=== PATIENT | male | born 1955 | race Hispanic/Latino ===

== ENCOUNTER 2017-04-06 14:06 | Emergency (ER) | payer MEDICARE ==
[2017-04-06 14:09] VITALS: BMI 31.4
[2017-04-06 14:14] VITALS: TEMP 98.2
--- NOTE | 2017-04-06 14:33 | ED PDOC ---
Arrival/HPI - General Chief Complaint: Psychiatric Evaluation Time Seen by Provider: 04/06/17 14:28 Historian: Patient - History of Present Illness Narrative History of Present Illness (Text): 04/06/17 14:29 Jj Renteria Jr. is a 61 year old male, whose past medical history includes diabetes, hypertension, schizoaffective disorder, and bipolar depression, who was sent in to emergency department by Dr. Salter for psychiatric medication adjustment. Patient denies any SI/HI or any other complaint at this time. Psychiatrist: Dr. Salter Past Medical History - Provider Review Nursing Documentation Reviewed: Yes - Infectious Disease Hx of Infectious Diseases: None - Tetanus Immunization Tetanus Immunization: Unknown - Cardiac Hx Cardiac Disorders: Yes Hx Hypertension: Yes - Pulmonary Hx Respiratory Disorders: No - Neurological Hx Neurological Disorder: No - HEENT Hx HEENT Disorder: No - Renal Hx Renal Disorder: No - Endocrine/Metabolic Hx Diabetes Mellitus Type 1: Yes - Hematological/Oncological Hx Cancer: No - Integumentary Hx Dermatological Disorder: No - Musculoskeletal/Rheumatological Hx Musculoskeletal Disorders: No Hx Unsteady Gait: No - Gastrointestinal Hx Gastrointestinal Disorders: No - Genitourinary/Gynecological Hx Sexually Transmitted Diseases: No - Psychiatric Hx Anxiety: Yes Hx Bipolar Disorder: Yes Hx Depression: Yes Hx Schizophrenia: Yes Hx Substance Use: Yes (Marijuana) - Past Surgical History Past Surgical History: No Previous - Surgical History Hx Appendectomy: Yes Hx Tonsillectomy: Yes - Anesthesia Hx Anesthesia: Yes Hx Anesthesia Reactions: No Hx Malignant Hyperthermia: No - Suicidal Assessment Feels Threatened In Home Enviroment: No Family/Social History - Physician Review Nursing Documentation Reviewed: Yes Family/Social History: No Known Family HX Smoking Status: Current Some Days Smoker Hx Alcohol Use: Yes Frequency of alcohol use: Socially Hx Substance Use: Yes (Marijuana) Hx Substance Use Treatment: No Allergies/Home Meds Allergies/Adverse Reactions: Allergies Penicillins Allergy (Verified 04/06/17 14:12) SHORTNESS OF BREATH Home Medications: Home Meds Medication Instructions Recorded Confirmed Atenolol [Tenormin] 50 mg PO DAILY 04/06/17 04/06/17 Clozapine [Fazaclo] 50 mg PO QID 04/06/17 04/06/17 Fludrocortisone [Florinef] 0.1 mg PO DAILY 04/06/17 04/06/17 Ranitidine HCl [Zantac 75] 1 tab PO PRN PRN 04/06/17 04/06/17 Tadalafil [Cialis] 1 tab PO DAILY 04/06/17 04/06/17 amLODIPine [Norvasc] 2.5 mg PO DAILY 04/06/17 04/06/17 cloZAPine [Clozaril] 100 mg PO BID 04/06/17 04/06/17 clonazePAM [Klonopin] 1 mg PO HS 04/06/17 04/06/17 Physical Exam - Physical Exam Narrative Physical Exam (Text): - Review of Systems Constitutional: Normal. absent: Fatigue, Weight Change, Fevers Eyes: Normal ENT: Normal Respiratory: Normal absent: SOB, Cough, Sputum Cardiovascular: Normal absent: Chest pain, Palpitations, Syncope Gastrointestinal: Normal absent: Abdominal pain, Diarrhea, Nausea, Vomiting Genitourinary: Normal. absent: Dysuria, Frequency, Hematuria Musculoskeletal: Normal. absent: Arthralgias, Back Pain, Neck Pain Skin: Normal Neurological: Normal absent: Focal Weakness Endocrine: Normal Hemo/Lymphatic: Normal Psychiatric: No SI/HI - Physical exam Patient appears age appropriate, speaking full sentences without difficulty. - Systems Exam Head: Present: Atraumatic, Normocephalic Pupils: Present: PERRL Extraocular Muscles: Present: EOMI Conjunctiva: Present: Normal Mouth: Present: Moist Mucous Membranes Neck: Present: Normal Range of Motion. No: MIDLINE TENDERNESS, Paraspinal Tenderness Respiratory/Chest: Present: Clear to Auscultation, Good Air Exchange. No: Respiratory Distress, Accessory Muscle Use, Tachypneic Cardiovascular: Present: Regular Rate and Rhythm, Normal S1, S2, Peripheral Pulses Present. No: Murmurs Abdomen: Present: Normal Bowel Sounds, No: Tenderness, Peritoneal Signs, Rebound, Guarding, Distention Back: Present: Normal Inspection. No: Midline Tenderness, Paraspinal Tenderness Upper Extremity: Present: Normal Inspection. No: Cyanosis, Edema Lower Extremity: Present: Normal Inspection. No: Edema Neurological: Present: GCS=15, Speech Normal, cranial nerves II through XII fully intact with no cerebellar abnormality, neuro-sensory fully intact. No focal neurological deficits. Skin: Present: Warm, Dry, Normal Color. No: Rashes Lymphatic: Present: OX3, NI, NC Psychiatric: Present: Alert, Oriented x 3, Normal Insight, Normal Concentration Vital Signs Reviewed: Yes Vital Signs Temp Pulse Resp BP Pulse Ox 04/06/17 18:00 80 20 146/97 H 99 04/06/17 14:13 98.2 F 108 H 18 137/86 97 Temperature: Afebrile Blood Pressure: Normal Pulse: Tachycardic Respiratory Rate: Normal Appearance: Positive for: Well-Appearing, Non-Toxic, Comfortable Pain Distress: None Mental Status: Positive for: Alert and Oriented X 3 Finger Stick Blood Glucose: 245 Medical Decision Making ED Course and Treatment: 04/06/17 14:29 Impression: 61 year old male sent in by Dr. Salter for psychiatric meds adjustment Denies SI/HI, denies other complaints. Plan: -- Chest X-ray -- Urinalysis -- Labs -- Reassess and disposition Prior Visits: Notes and results from previous visits were reviewed. Patient last seen in ED on 11/18/16 for right eye swelling that day. Patient was discharged home. Progress Notes: 04/06/17 18:22 seen by PES, states pt cleared for dc home with outpatient f/u pt in no distress, asked to be dc'd home denies SI/HI, states he feels comfortable being dc'd home Pt states he understands to return to the ER right away for new or worsening symptoms or for inability to f/u with PMD or specialist as instructed. Patient states that he fully agrees with and understands discharge instructions. States that he agrees with the plan and disposition. Verbalized and repeated discharge instructions and plan. I have given the patient opportunity to ask any additional questions. - Lab Interpretations Lab Results: 04/06/17 14:28 04/06/17 14:00 Lab Results 04/06/17 17:30: Urine Color Yellow, Urine Appearance Clear, Urine pH 6.0, Ur Specific [place] 1.020, Urine Protein 30 H, Urine Glucose (UA) >=1000, Urine Ketones Negative, Urine Blood Negative, Urine Nitrate Negative, Urine Bilirubin Negative, Urine Urobilinogen 0.2, Ur Leukocyte Esterase Negative, Urine RBC Pending, Urine WBC Pending 04/06/17 14:28: WBC 9.0 D, RBC 5.95, Hgb 17.5, Hct 49.8, MCV 83.7, MCH 29.4, MCHC 35.1, RDW 13.9, Plt Count 179, MPV 10.9, Gran % 69.5 H, Lymph % (Auto) 19.8 L, [place] % (Auto) 8.4 H, Eos % (Auto) 2.1, Baso % (Auto) 0.2, Gran # 6.28, Lymph # 1.8, [place] # 0.8 H, Eos # 0.2, Baso # 0.02 04/06/17 14:00: Alcohol, Quantitative < 10 04/06/17 14:00: Salicylates < 1 L, Acetaminophen < 10.0 L 04/06/17 14:00: Sodium 138, Potassium 4.3, Chloride 106, Carbon Dioxide 23, Anion Gap 13, BUN 17, Creatinine 1.1, Est GFR ( Amer) > 60, Est GFR (Non- Af Amer) > 60, Random Glucose 268 H, Calcium 9.4, Total Bilirubin 1.0, AST 22, ALT 34, Alkaline Phosphatase 51, Total Protein 6.8, Albumin 4.0, Globulin 2.8, Albumin/Globulin Ratio 1.4 I have reviewed the lab results: Yes - RAD Interpretation Radiology Orders: 04/06/17 14:29 CHEST PORTABLE [RAD] Stat - Scribe Statement The provider has reviewed the documentation as recorded by the Rosamaria Acosta Provider Scribe Attestation: All medical record entries made by the Scribe were at my direction and personally dictated by me. I have reviewed the chart and agree that the record accurately reflects my personal performance of the history, physical exam, medical decision making, and the department course for this patient. I have also personally directed, reviewed, and agree with the discharge instructions and disposition. Disposition/Present on Arrival - Present on Arrival Any Indicators Present on Arrival: No History of DVT/PE: No History of Uncontrolled Diabetes: No Urinary Catheter: No History of Decub. Ulcer: No History Surgical Site Infection Following: None - Disposition Have Diagnosis and Disposition been Completed?: Yes Diagnosis: Encounter for medication adjustment Disposition: HOME/ ROUTINE Disposition Time: 18:25 Patient Plan: Discharge Patient Problems: Current Active Problems Problem Status Onset Encounter for medication adjustment Acute Condition: GOOD Discharge Instructions (ExitCare): Medical Clearance for Psychiatric Care (ED) Additional Instructions: PLEASE RETURN TO THE EMERGENCY DEPARTMENT FOR NEW OR WORSENING SYMPTOMS. RETURN RIGHT AWAY IF YOU CANNOT FOLLOW UP WITH YOUR PRIMARY CARE DOCTOR, CLINIC, OR SPECIALIST IN 1-2 DAYS. Referrals: Poncho Irwin MD [Primary Care Provider] - Follow up with primary Simone Salter MD [Staff Provider] - Follow up with primary Eveline Jacobson MD [Staff Provider] - Follow up with primary
--- NOTE | 2017-04-06 15:03 | RAD ---
HISTORY: med clearance COMPARISON: Chest x-ray performed 05/01/16 TECHNIQUE: Chest, one view. FINDINGS: Examination limited by habitus. LUNGS: No focal consolidation. Please note that chest x-ray has limited sensitivity for the detection of pulmonary masses. PLEURA: No significant pleural effusion identified. No definite pneumothorax . CARDIOVASCULAR: The cardiomediastinal silhouette appears within normal limits of size. OSSEOUS STRUCTURES: Degenerative changes of the spine. VISUALIZED UPPER ABDOMEN: Unremarkable. OTHER FINDINGS: None. IMPRESSION: No focal consolidation, significant pleural effusion, or definite pneumothorax identified.
[2017-04-06 15:06] LABS: ADD MANUAL DIFF? NO; BASO # 0.02 K/mm3 (0.0-2.0); BASO % 0.2 % (0.0-3.0); EOS # 0.2 (0.0-0.7); EOS % 2.1 % (1.5-5.0); GRAN # 6.28 (1.4-6.5); GRAN % 69.5 % (50.0-68.0); HEMATOCRIT 49.8 % (42.0-52.0); LYMPH # 1.8 (1.2-3.4); LYMPH % 19.8 % (22.0-35.0); MEAN CELL VOLUME 83.7 fL (80.0-105.0); MEAN CORPUSCULAR HEMOGLOBIN 29.4 pg (25.0-35.0); MEAN CORPUSCULAR HGB CONC 35.1 g/dl (31.0-37.0); MEAN PLATELET VOLUME 10.9 fl (7.0-11.0); MONO # 0.8 (0.1-0.6); MONO % 8.4 % (1.0-6.0); PLATELET COUNT 179 10^3/uL (120.0-450.0); RED CELL DISTRIBUTION WIDTH 13.9 % (11.5-14.5)
[2017-04-06 15:18] LABS: ALB/GLOB RATIO 1.4 (1.1-1.8); ALKALINE PHOSPHATASE 51 U/L (38-133); ALT/SGPT 34 U/L (7-56); AST/SGOT 22 U/L (15-59); BLOOD UREA NITROGEN 17 mg/dL (7-21); CALCIUM 9.4 mg/dL (8.4-10.5); CARBON DIOXIDE 23 mmol/L (21-33); CHLORIDE 106 mmol/L (98-107); GFR AFRICAN-AMERICAN > 60; GLUCOSE,RANDOM 268 mg/dL (70-110); POTASSIUM 4.3 mmol/L (3.6-5.0); SODIUM 138 mmol/L (132-148); TOTAL PROTEIN 6.8 g/dL (5.8-8.3)
[2017-04-06 18:01] VITALS: BP 146/97; PULSE 80; RESP 20; O2SAT 99
[2017-04-06 18:05] LABS: URINE APPEARANCE CLEAR (CLEAR); URINE BILIRUBIN NEGATIVE (NEGATIVE); URINE BLOOD NEGATIVE (NEGATIVE); URINE COLOR YELLOW (YELLOW); URINE GLUCOSE (UA) >=1000 mg/dL (NEGATIVE); URINE KETONE NEGATIVE (NEGATIVE); URINE LEUKOCYTE ESTERASE NEGATIVE Leu/uL (NEGATIVE); URINE PROTEIN 30 mg/dL (<30 mg/dL); URINE UROBILINOGEN 0.2 E.U./dL (<1 E.U./dL)
[2017-04-06 19:03] LABS: URINE BACTERIA TRACE (NEG); URINE RBC 0 - 2 /hpf (0-2); URINE WBC 0 - 2 /hpf (0-6)
== END 2017-04-06 18:49 | disposition home or self-care (01) ==
LOC: ED 14:06
DX: Z00.8 Encounter for other general examination (principal); I10 Essential (primary) hypertension; F41.9 Anxiety disorder, unspecified; F20.9 Schizophrenia, unspecified; Z72.0 Tobacco use
CPT/HCPCS: 71010; 80053; 81001; 85025; 90791; 99284; G0480

== ENCOUNTER 2017-07-31 07:09 | Inpatient (IN) | payer MEDICARE ==
[2017-07-31 07:26] VITALS: BMI 29.9
--- NOTE | 2017-07-31 08:20 | ED PDOC ---
Arrival/HPI - General Chief Complaint: Psychiatric Evaluation Time Seen by Provider: 07/31/17 07:19 Historian: Patient - History of Present Illness Narrative History of Present Illness (Text): 07/31/17 08:10 Jj Renteria is a 62 year old male, whose past medical history includes hypertension, diabetes, schizophrenia, and bipolar disorder, who presents to the emergency department complaining of "feeling drunk". Patient reports he has been feeling like this for a few weeks and states he has a non-steady gait. He notes having a mechanical fall a few weeks ago, with head trauma, but did not get evaluated. Patient reports he has been feeling dizziness for over a year after his doctor changed his medication. Patient denies chest pain, shortness of breath, fever, cough, chills, vomiting, abdominal pain, headache, neck pain, vision changes, or other complaints. PMD: Dr. Salter Time/Duration: > week (few weeks) Symptom Onset: Sudden Symptom Course: Unchanged Associated Symptoms (Text): dizziness, non-steady gait Past Medical History - Provider Review Nursing Documentation Reviewed: Yes - Infectious Disease Hx of Infectious Diseases: None - Tetanus Immunization Tetanus Immunization: Unknown - Cardiac Hx Cardiac Disorders: Yes Hx Hypertension: Yes - Pulmonary Hx Respiratory Disorders: No - Neurological Hx Neurological Disorder: No - HEENT Hx HEENT Disorder: No - Renal Hx Renal Disorder: No - Endocrine/Metabolic Hx Diabetes Mellitus Type 1: Yes - Hematological/Oncological Hx Cancer: No - Integumentary Hx Dermatological Disorder: No - Musculoskeletal/Rheumatological Hx Musculoskeletal Disorders: No Hx Unsteady Gait: No - Gastrointestinal Hx Gastrointestinal Disorders: No - Genitourinary/Gynecological Hx Sexually Transmitted Diseases: No - Psychiatric Hx Anxiety: Yes Hx Bipolar Disorder: Yes Hx Depression: Yes Hx Schizophrenia: Yes Hx Substance Use: Yes (Marijuana) - Past Surgical History Past Surgical History: No Previous - Surgical History Hx Appendectomy: Yes Hx Tonsillectomy: Yes - Anesthesia Hx Anesthesia: Yes Hx Anesthesia Reactions: No Hx Malignant Hyperthermia: No - Suicidal Assessment Feels Threatened In Home Enviroment: No Family/Social History - Physician Review Nursing Documentation Reviewed: Yes Family/Social History: Other (parkinson's) Smoking Status: Current Some Days Smoker Hx Alcohol Use: Yes Hx Substance Use: Yes (Marijuana) Hx Substance Use Treatment: No Allergies/Home Meds Allergies/Adverse Reactions: Allergies Penicillins Allergy (Verified 04/06/17 14:12) SHORTNESS OF BREATH Home Medications: Home Meds Medication Instructions Recorded Confirmed Clozapine [Fazaclo] 200 mg PO HS 04/06/17 07/31/17 amLODIPine [Norvasc] 5 mg PO DAILY 04/06/17 07/31/17 Glimepiride [amaRYL] 4 mg PO BRKDIN 07/31/17 07/31/17 Insulin Detemir [Levemir] 15 units SC HS 07/31/17 07/31/17 Insulin Lispro [humALOG] 15 units SC AC 07/31/17 07/31/17 cloZAPine [Clozaril] 200 mg PO BID 07/31/17 07/31/17 Review of Systems - Review of Systems Constitutional: absent: Fevers Eyes: absent: Vision Changes Respiratory: absent: SOB, Cough Cardiovascular: absent: Chest Pain Gastrointestinal: absent: Abdominal Pain, Diarrhea, Vomiting Musculoskeletal: absent: Back Pain, Neck Pain Neurological: Dizziness, Gait Changes (difficulty walking and non-steady gait). absent: Headache, Focal Weakness Psychiatric: absent: Anxiety, Depression, Suicidal Ideation Physical Exam - Physical Exam Narrative Physical Exam (Text): 07/31/17 Head: Atraumatic. Normocephalic. Eyes: PERRL. EOMI. Conjunctivae are not pale. ENT: Mucous membranes are moist and intact. Oropharynx is clear and symmetric. Neck: Supple. Full ROM. No JVD. No lymphadenopathy. Cardiovascular: Regular rate. Regular rhythm. No murmurs, rubs, or gallops. Distal pulses are 2+ and symmetric. Pulmonary/Chest: No evidence of respiratory distress. Clear to auscultation bilaterally. No wheezing, rales or rhonchi. Abdominal: Soft and non-distended. There is no tenderness. No rebound, guarding, or rigidity. No organomegaly. Good bowel sounds. Back: No CVA tenderness. NO edema or erythema. Extremities: No edema. No cyanosis. No clubbing. Full range of motion in all extremities. No calf tenderness. Skin: Skin is warm and dry. No petechiae. No purpura. Neurological: Alert, awake and oriented to place and person. He has no slurred speech or facial droop. Moves all four extremities with intact strength. No sensory deficits. He ambulates without assistance. Normal rapid alternating movements. Normal finger to nose. Psychiatric: Good eye contact. Appears to perservate at times. No hallucinations currently. Denies suicidal ideation or depression. Vital Signs Reviewed: Yes Vital Signs Temp Pulse Resp BP Pulse Ox 07/31/17 11:28 91 H 18 139/71 97 07/31/17 10:24 93 H 18 140/90 96 07/31/17 07:24 98.7 F 100 H 18 141/87 98 Temperature: Afebrile Blood Pressure: Normal Pulse: Tachycardic Respiratory Rate: Normal Appearance: Positive for: Well-Appearing, Non-Toxic, Comfortable Pain Distress: None Mental Status: Positive for: Alert and Oriented X 3 Finger Stick Blood Glucose: 179 Medical Decision Making ED Course and Treatment: 07/31/17 Impression: 62 year old male with dizziness and non-steady gait. Differential Diagnosis included but are not limited to: psychiatric disorder vs. medicine side effect vs. neurological disease vs. dehydration Plan: -- EKG -- Chest X-ray -- Labs -- Urinalysis -- Reassess and disposition Progress Notes: 07/31/17 09:[address]: Creator : Charlie Mcclain MD FINDINGS: HEMORRHAGE: No intracranial hemorrhage. BRAIN: No mass effect or edema. No atrophy or chronic microvascular ischemic changes. VENTRICLES: Unremarkable. No hydrocephalus. CALVARIUM: Unremarkable. PARANASAL SINUSES: Unremarkable as visualized. No significant inflammatory changes. MASTOID AIR CELLS: Unremarkable as visualized. No inflammatory changes. OTHER FINDINGS: None. IMPRESSION: Normal CT of the Head. 07/31/17 09:40 Chest X-ray: Creator : Lacie Anderson COMPARISON: 04/06/2017 FINDINGS: LUNGS: Clear. PLEURA: No pneumothorax or pleural fluid seen. CARDIOVASCULAR: Normal. OSSEOUS STRUCTURES: Thoracic spondylosis VISUALIZED UPPER ABDOMEN: Normal. OTHER FINDINGS: None. IMPRESSION: No active disease. No interval pathology Patient reportedly saw his psychiatrist several days ago who advised evaluation and possible admission. By history, the patient has had symptoms of unsteadiness for over a year. He denies any new medication since over a year, but states he has been feeling dizzy since starting a certain medication over a year ago. At this time there does not appear to be any ACUTE neurological deficits on exam. He is afebrile, no obvious injuries noted. Labs reviewed. EKG reveals RBBB which has been noted on prior EKG's. He has no chest pain or sob. Patient medically cleared for PES evaluation. Dizziness appears chronic and present for over a year, with no arrhythmias or cv instability or acute neuro deficits noted by history or on exam. - Lab Interpretations Lab Results: 07/31/17 09:07 07/31/17 09:07 Lab Results 07/31/17 10:27: Urine Opiates Screen Negative, Urine Methadone Screen Negative, Ur Barbiturates Screen Negative, Ur Phencyclidine Scrn Negative, Ur Amphetamines Screen Negative, U Benzodiazepines Scrn Negative, U Oth Cocaine Metabols Negative, U Cannabinoids Screen Negative 07/31/17 10:27: Urine Color Yellow, Urine Appearance Clear, Urine pH 6.0, Ur Specific [place] 1.010, Urine Protein Trace H, Urine Glucose (UA) 100 H, Urine Ketones Negative, Urine Blood Negative, Urine Nitrate Negative, Urine Bilirubin Negative, Urine Urobilinogen 0.2, Ur Leukocyte Esterase Negative, Urine RBC Negative, Urine WBC 0 - 2, Ur Epithelial Cells 0 - 2, Urine Bacteria Neg 07/31/17 09:07: Alcohol, Quantitative < 10 07/31/17 09:07: Salicylates < 1 L, Acetaminophen < 10.0 L 07/31/17 09:07: Sodium 141, Potassium 3.8, Chloride 106, Carbon Dioxide 24, Anion Gap 15, BUN 21, Creatinine 0.9, Est GFR ( Amer) > 60, Est GFR (Non- Af Amer) > 60, Random Glucose 197 H, Calcium 8.8, Total Bilirubin 0.9, AST 26, ALT 34, Alkaline Phosphatase 66, Lactate Dehydrogenase 395, Total Creatine Kinase 91, Troponin I < 0.01, Total Protein 6.5, Albumin 3.9, Globulin 2.6, Albumin/Globulin Ratio 1.5 07/31/17 09:07: WBC 9.0 D, RBC 5.72, Hgb 16.9, Hct 47.6, MCV 83.2, MCH 29.5, MCHC 35.5, RDW 12.6, Plt Count 174, MPV 10.6, Gran % 57.1, Lymph % (Auto) 28.2, [place] % (Auto) 10.2 H, Eos % (Auto) 4.1, Baso % (Auto) 0.4, Gran # 5.11, Lymph # 2.5, [place] # 0.9 H, Eos # 0.4, Baso # 0.04 07/31/17 07:20: POC Glucose (mg/dL) 179 H I have reviewed the lab results: Yes - RAD Interpretation Radiology Orders: 07/31/17 08:16 HEAD W/CONTRAST [CT] Stat 07/31/17 08:17 CHEST ONE VIEW [RAD] Stat Gasket Maker: Radiologist - EKG Interpretation EKG Interpretation (Text): 07/31/17 10:08 EKG at 07:40 normal sinus rhythm rate of 97 with right bundle branch block Interpreted by ED Physician: Yes Type: 12 lead EKG Comparison: Similar to previous EKG - Medication Orders Current Medication Orders: Amlodipine Besylate (Norvasc) 5 mg PO DAILY DEREK Atorvastatin Calcium (Lipitor) 20 mg PO DIN DEREK Clozapine (Clozaril) 100 mg PO 1000,1600 DEREK Clozapine (Clozaril) 200 mg PO HS DEREK PRN Reason: Protocol Glimepiride (Amaryl) 4 mg PO BRKDIN DEREK Metformin HCl (Glucophage) 850 mg PO BID DEREK - Scribe Statement The provider has reviewed the documentation as recorded by the Rosamaria Love Provider Scribe Attestation: All medical record entries made by the Scribe were at my direction and personally dictated by me. I have reviewed the chart and agree that the record accurately reflects my personal performance of the history, physical exam, medical decision making, and the department course for this patient. I have also personally directed, reviewed, and agree with the discharge instructions and disposition. Disposition/Present on Arrival - Present on Arrival Any Indicators Present on Arrival: No History of DVT/PE: No History of Uncontrolled Diabetes: No Urinary Catheter: No History of Decub. Ulcer: No History Surgical Site Infection Following: None - Disposition Have Diagnosis and Disposition been Completed?: Yes Diagnosis: Schizoaffective disorder Disposition: HOSPITALIZED Disposition Time: 10:00 Patient Plan: Admission Condition: FAIR
[2017-07-31 09:15] LABS: BASO # 0.04 K/mm3 (0.0-2.0); BASO % 0.4 % (0.0-3.0); EOS # 0.4 (0.0-0.7); EOS % 4.1 % (1.5-5.0); GRAN # 5.11 (1.4-6.5); GRAN % 57.1 % (50.0-68.0); HEMATOCRIT 47.6 % (42.0-52.0); LYMPH # 2.5 (1.2-3.4); LYMPH % 28.2 % (22.0-35.0); MEAN CELL VOLUME 83.2 fl (80.0-105.0); MEAN CORPUSCULAR HEMOGLOBIN 29.5 pg (25.0-35.0); MEAN CORPUSCULAR HGB CONC 35.5 g/dl (31.0-37.0); MEAN PLATELET VOLUME 10.6 fl (7.0-11.0); MONO # 0.9 (0.1-0.6); MONO % 10.2 % (1.0-6.0); RED CELL DISTRIBUTION WIDTH 12.6 % (11.5-14.5)
[2017-07-31 09:25] LABS: ALB/GLOB RATIO 1.5 (1.1-1.8); ALKALINE PHOSPHATASE 66 U/L (38-126); ALT/SGPT 34 U/L (7-56); AST/SGOT 26 U/L (17-59); BILIRUBIN,TOTAL 0.9 mg/dL (0.2-1.3); BLOOD UREA NITROGEN 21 mg/dL (7-21); CALCIUM 8.8 mg/dL (8.4-10.5); CARBON DIOXIDE 24 mmol/L (21-33); CHLORIDE 106 mmol/L (98-107); GFR AFRICAN-AMERICAN > 60; GLUCOSE,RANDOM 197 mg/dL (70-110); POTASSIUM 3.8 mmol/L (3.6-5.0); SODIUM 141 mmol/L (132-148); TOTAL PROTEIN 6.5 g/dL (5.8-8.3)
--- NOTE | 2017-07-31 09:29 | CT ---
PROCEDURE: CT HEAD WITHOUT CONTRAST. HISTORY: unstable gait COMPARISON: None available. TECHNIQUE: Axial computed tomography images were obtained through the head/brain without intravenous contrast. Radiation dose: Total exam DLP = 775 mGy-cm. This CT exam was performed using one or more of the following dose reduction techniques: Automated exposure control, adjustment of the mA and/or kV according to patient size, and/or use of iterative reconstruction technique. FINDINGS: HEMORRHAGE: No intracranial hemorrhage. BRAIN: No mass effect or edema. No atrophy or chronic microvascular ischemic changes. VENTRICLES: Unremarkable. No hydrocephalus. CALVARIUM: Unremarkable. PARANASAL SINUSES: Unremarkable as visualized. No significant inflammatory changes. MASTOID AIR CELLS: Unremarkable as visualized. No inflammatory changes. OTHER FINDINGS: None. IMPRESSION: Normal CT of the Head.
[2017-07-31 09:37] LABS: TROPONIN I < 0.01 ng/mL
--- NOTE | 2017-07-31 09:42 | RAD ---
PROCEDURE: CHEST RADIOGRAPH, 1 VIEW HISTORY: unsteady gait COMPARISON: 04/06/2017 FINDINGS: LUNGS: Clear. PLEURA: No pneumothorax or pleural fluid seen. CARDIOVASCULAR: Normal. OSSEOUS STRUCTURES: Thoracic spondylosis VISUALIZED UPPER ABDOMEN: Normal. OTHER FINDINGS: None. IMPRESSION: No active disease. No interval pathology
[2017-07-31 10:35] LABS: URINE BILIRUBIN NEGATIVE (NEGATIVE); URINE BLOOD NEGATIVE (NEGATIVE); URINE GLUCOSE (UA) 100 mg/dL (NEGATIVE); URINE KETONE NEGATIVE (NEGATIVE); URINE LEUKOCYTE ESTERASE NEGATIVE Leu/uL (NEGATIVE); URINE PROTEIN TRACE mg/dL (<30 mg/dL); URINE UROBILINOGEN 0.2 E.U./dL (<1 E.U./dL)
[2017-07-31 10:38] LABS: URINE APPEARANCE CLEAR (CLEAR); URINE COLOR YELLOW (YELLOW)
[2017-07-31 10:39] LABS: URINE BACTERIA NEG (NEG); URINE EPITHELIAL CELLS 0 - 2 /hpf (0-5); URINE RBC NEGATIVE /hpf (0-2); URINE WBC 0 - 2 /hpf (0-6)
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
--- NOTE | 2017-07-31 13:00 | PCM.BM ---
Treatment Plan Problems - Problems identified on initial assessmt Problem 1 Date Initiated: 07/31/17 Time Initiated: 13:00 Assessment reference: HP Status: Active - Milieu Protocol Milieu Narrative: Clozapine 100mg bid and 200 mg hs Discharge/Continuing Care - Treatment Team Participation Patient/Family/SO Statement: Clozapine 100mg bid and 200 mg hs
--- NOTE | 2017-07-31 16:00 | PCM.BM ---
Treatment Plan Problems - Problems identified on initial assessmt Problem 1 Date Initiated: 07/31/17 Time Initiated: 13:00 Assessment reference: HP Status: Active BIPOLAR DISORDER Date Initiated: 07/31/17 Time Initiated: 16:00 Assessment reference: NA Status: Active SCHIZOPRENIA Date Initiated: 07/31/17 Time Initiated: 16:00 Assessment reference: NA Status: Active Treatment assets and liabiliti Patient Assests: cooperative, ADL independent, cognitively intact Patient Liabilities: live alone, poor support system - Milieu Protocol Maintain good personal hygiene: every shift Encourage regular showers, every shift Remind patient to perform daily oral care, every shift Assist patient to perform ADL's Maintain personal safety: daily Educate patient to report safety concerns to staff, daily Monitor environment for contraband/sharps Medication safety: Monitor for expected outcome, potential side effects: daily, Assess barriers to learning: daily, Assess readiness for medication education: daily Milieu Narrative: Clozapine 100mg bid and 200 mg hs Discharge/Continuing Care - Education Needs Education Needs: Patient Medication, Patient Diagnosis/Disease Process, Patient Coping Skills, Patient Community resources, Patient Activities of Daily Living, Patient Nutrition, Patient Health Practices/Safety, Patient Personal Hygiene/ Grooming, Patient Aftercare Safety Plan - Discharge Discharge Criteria: Tolerates medication w/o severe side effects, Free of Homicidal thoughts, Free of paranoid thoughts, Free of agitation, Normal sleep pattern, Ability to care for self, Reduction of target symptoms - Treatment Team Participation Patient/Family/SO Statement: Clozapine 100mg bid and 200 mg hs
[2017-07-31] MEDS: Insulin Lispro 1 UNITS/0.01 ML SC SCH (17:43)
[2017-07-31] MEDS: Insulin Reg-LOW-Coverage SC SCH ×2 (17:44→22:50)
--- NOTE | 2017-07-31 19:16 | CARD ---
APPROVED REPORT EKG Measurement Heart [id number] <Conclusion> Normal sinus rhythm Right bundle branch block Abnormal ECG
[2017-07-31] MEDS ORDERED: INSULIN DETEMIR 15 UNIT SC SCH (22:00)
[2017-07-31] MEDS: Insulin Detemir 100 units/ml Vial (Levemir) SC SCH (22:55)
[2017-08-01] MEDS: Insulin Reg-LOW-Coverage SC SCH ×4 (08:08→21:37)
[2017-08-01] MEDS: Insulin Lispro 1 UNITS/0.01 ML SC SCH ×3 (08:13→16:45)
[2017-08-01 08:14] LABS: CHOLESTEROL 141 mg/dL (130-200)
[2017-08-01 08:19] LABS: FREE T4 0.87 ng/dL (0.78-2.19)
[2017-08-01 08:33] LABS: THYROID STIMULATING HORMONE 0.59 mIU/mL (0.46-4.68)
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
--- NOTE | 2017-08-01 12:32 | CP.PCM.CON ---
<Matthew Steiner - Last Filed: 08/01/17 12:42> History of Present Illness - History of Present Illness History of Present Illness: Medicine 62M DM, HTN, HL, schizoaffective disorder who was admitted for suicidal ideation. Pt has intermittent hallucinations. during current encounter states he has audible hallucinations however not at this current time. Pt has a hx of being non-compliant with medications. Medicine was consulted to ensure diabetes and hypertension is properly managed. PMH: psychosis DM, HTN, HL PSH: Appendectomy ALL: PCN Review of Systems - Review of Systems All systems: reviewed and no additional remarkable complaints except - Constitutional Constitutional: As Per HPI Past Patient History - Infectious Disease Hx of Infectious Diseases: None - Tetanus Immunizations Tetanus Immunization: Unknown - Past Social History Smoking Status: Current Some Days Smoker - CARDIAC Hx Cardiac Disorders: Yes Hx Hypertension: Yes - PULMONARY Hx Respiratory Disorders: No - NEUROLOGICAL Hx Neurological Disorder: No - HEENT Hx HEENT Problems: No - RENAL Hx Chronic Kidney Disease: No - ENDOCRINE/METABOLIC Hx Diabetes Mellitus Type 1: Yes - HEMATOLOGICAL/ONCOLOGICAL Hx Blood Disorders: No Hx Cancer: No - INTEGUMENTARY Hx Dermatological Problems: No - MUSCULOSKELETAL/RHEUMATOLOGICAL Hx Musculoskeletal Disorders: No Hx Unsteady Gait: No - GASTROINTESTINAL Hx Gastrointestinal Disorders: No - GENITOURINARY/GYNECOLOGICAL Hx Sexually Transmitted Disorders: No - PSYCHIATRIC Hx Anxiety: Yes Hx Bipolar Disorder: Yes Hx Depression: Yes Hx Schizophrenia: Yes Hx Substance Use: No - SURGICAL HISTORY Hx Appendectomy: Yes Hx Tonsillectomy: Yes - ANESTHESIA Hx Anesthesia: Yes Hx Anesthesia Reactions: No Hx Malignant Hyperthermia: No Meds Allergies/Adverse Reactions: Allergies Allergy/AdvReac Type Severity Reaction Status Date / Time Penicillins Allergy SHORTNESS Verified 04/06/17 14:12 OF BREATH - Medications Medications: Current Medications Amlodipine Besylate (Norvasc) 5 mg PO DAILY [facility] Last Admin: 08/01/17 08:12 Dose: 5 mg Atorvastatin Calcium (Lipitor) 20 mg PO DIN [facility] Last Admin: 07/31/17 17:42 Dose: 20 mg Clozapine (Clozaril) 100 mg PO 1000,1600 [facility] Last Admin: 08/01/17 12:13 Dose: 100 mg Clozapine (Clozaril) 200 mg PO HS [facility] PRN Reason: Protocol Last Admin: 07/31/17 22:49 Dose: 200 mg Glimepiride (Amaryl) 4 mg PO BRKDIN [facility] Last Admin: 08/01/17 08:12 Dose: 4 mg Insulin Detemir (Levemir) 15 unit SC HS [facility] Last Admin: 07/31/17 22:55 Dose: 15 unit Insulin Human Lispro (Humalog) 10 units SC AC [facility] Last Admin: 08/01/17 12:13 Dose: 10 units Insulin Human Regular (Humulin R Low) 0 units SC ACHS [facility] PRN Reason: Protocol Last Admin: 08/01/17 12:14 Dose: 2 units Metformin HCl (Glucophage) 850 mg PO BID [facility] Last Admin: 08/01/17 08:12 Dose: 850 mg Physical Exam - Constitutional Appears: Non-toxic, No Acute Distress - Head Exam Head Exam: ATRAUMATIC - Eye Exam Eye Exam: EOMI. absent: Scleral icterus - ENT Exam ENT Exam: Mucous Membranes Moist - Respiratory Exam Respiratory Exam: NORMAL BREATHING PATTERN. absent: Accessory Muscle Use, Respiratory Distress - Cardiovascular Exam Cardiovascular Exam: +S1, +S2. absent: Bradycardia, Tachycardia - GI/Abdominal Exam GI & Abdominal Exam: Soft. absent: Distended, Rigid, Tenderness - Extremities Exam Extremities exam: Positive for: normal inspection. Negative for: calf tenderness - Back Exam Back exam: absent: CVA tenderness (L), CVA tenderness (R) - Neurological Exam Neurological exam: Alert, Oriented x3 - Skin Skin Exam: Normal Color, Warm Results - Vital Signs Recent Vital Signs: Last Vital Signs Temp 97.5 F L 08/01/17 07:06 Pulse 86 08/01/17 07:06 Resp 20 08/01/17 07:06 BP 131/94 H 08/01/17 07:06 Pulse Ox 97 07/31/17 11:28 - Labs Result Diagrams: 07/31/17 09:07 07/31/17 09:07 Labs: Laboratory Results - last 24 hr 07/31/17 07/31/17 08/01/17 17:15 22:06 07:40 POC Glucose (mg/dL) 282 H 133 H Triglycerides Cholesterol LDL Cholesterol Direct HDL Cholesterol Free T4 0.87 TSH 3rd Generation 0.59 08/01/17 08/01/17 08/01/17 07:40 08:00 11:06 POC Glucose (mg/dL) 86 231 H Triglycerides 165 H Cholesterol 141 LDL Cholesterol Direct 84 HDL Cholesterol 27 L Free T4 TSH 3rd Generation Assessment & Plan - Assessment and Plan (Free Text) Assessment: 62M pmhx of Diabetes, Hypertension, psychosis, admitted for recurrent psychosis episodes SI/Psychotic episode Management and recs per Psych primary team Hypertension continue home medication Norvasc Diabetes Insulin Sliding scale Metformin Glimiperide No acute medical intervention at this time. Reconsult as needed. Thank you for allowing us to partake in this patients care Matthew Steiner PGY1 <Ting De Paz - Last Filed: 08/01/17 13:55> Meds - Medications Medications: Current Medications Amlodipine Besylate (Norvasc) 5 mg PO DAILY [facility] Last Admin: 08/01/17 08:12 Dose: 5 mg Atorvastatin Calcium (Lipitor) 20 mg PO DIN [facility] Last Admin: 07/31/17 17:42 Dose: 20 mg Clozapine (Clozaril) 200 mg PO HS [facility] PRN Reason: Protocol Last Admin: 07/31/17 22:49 Dose: 200 mg Glimepiride (Amaryl) 4 mg PO BRKDIN [facility] Last Admin: 08/01/17 08:12 Dose: 4 mg Insulin Detemir (Levemir) 15 unit SC HS [facility] Last Admin: 07/31/17 22:55 Dose: 15 unit Insulin Human Lispro (Humalog) 10 units SC AC [facility] Last Admin: 08/01/17 12:13 Dose: 10 units Insulin Human Regular (Humulin R Low) 0 units SC ACHS [facility] PRN Reason: Protocol Last Admin: 08/01/17 12:14 Dose: 2 units Metformin HCl (Glucophage) 850 mg PO BID [facility] Last Admin: 08/01/17 08:12 Dose: 850 mg Results - Vital Signs Recent Vital Signs: Last Vital Signs Temp 97.5 F L 08/01/17 07:06 Pulse 86 08/01/17 07:06 Resp 20 08/01/17 07:06 BP 131/94 H 08/01/17 07:06 Pulse Ox 97 07/31/17 11:28 - Labs Result Diagrams: 07/31/17 09:07 07/31/17 09:07 Labs: Laboratory Results - last 24 hr 07/31/17 07/31/17 08/01/17 17:15 22:06 07:40 POC Glucose (mg/dL) 282 H 133 H Triglycerides Cholesterol LDL Cholesterol Direct HDL Cholesterol Free T4 0.87 TSH 3rd Generation 0.59 08/01/17 08/01/17 08/01/17 07:40 08:00 11:06 POC Glucose (mg/dL) 86 231 H Triglycerides 165 H Cholesterol 141 LDL Cholesterol Direct 84 HDL Cholesterol 27 L Free T4 TSH 3rd Generation Attending/Attestation - Attestation I have personally seen and examined this patient.: Yes I have fully participated in the care of the patient.: Yes I have reviewed all pertinent clinical information: Yes Notes (Text): 08/01/17 13:50 MEDICAL CONSULTATION 62 year old male with past medical history of hypertension, diabetes, and psychosis presented with hallucination and suicidal ideation. Continue with management as per psychiatry. Patient is on clozaril. Continue with norvasc for hypertension. Continue iwth amaryl, metformin and levemir for diabetes. Chart and labs reviewed. Thank you Dr. Olivas for allowing us to participate in the care of this patient. Please re-consult as needed. Ting De Paz MD Hospitalist.
[2017-08-01] MEDS: Insulin Detemir 100 units/ml Vial (Levemir) SC SCH (21:24)
--- NOTE | 2017-08-02 08:37 | PN ---
PSYCHIATRIC PROGRESS NOTE DATE: 08/01/2017 SUBJECTIVE: The patient is a 62-year-old male who was admitted for increasing symptoms of psychosis with thought disorder. thought blocking, severe paranoia, and inability to comply with outpatient psychiatric treatment. The patient's judgment is quite impaired. I reviewed the chart and spoke with nursing staff at length. The patient's current mental status reveals initially he was very drowsy. I spoke to him several minutes later, he was awake and generally alert. He has some thought blocking. He was tangential at time, poor eye contact, appeared to be responding to internal stimuli, but denies hallucinations. He felt okay, but looked somewhat disheveled and disorganized. His recent memory is generally intact. CURRENT MEDICATIONS: Include Amaryl 4 mg twice a day, clozapine 100 mg b.i.d. and 200 mg at bedtime, Glucophage, Humalog, Levemir, Lipitor, and Norvasc. LABORATORY DATA: His triglyceride is 165, LDL cholesterol 84, thyroid function is normal, glucose 231 at 11:06 this morning. PHYSICAL EXAMINATION: VITAL SIGNS: Blood pressure is 131/94, pulse 86, afebrile, and respirations 20 per minute. IMPRESSION: He has schizoaffective disorder with paranoia. The patient has insulin-dependent diabetes mellitus, history of hypertension, and hyperlipidemia. PLAN: I am going to lower clozapine, taper down of clozapine, briefly discussed with the patient depot medication on a monthly basis, which he refused in the past. We will keep him under closer observation q.15 minutes and we will closely monitor mental status. This patient is at this time totally unable to care for himself. Simone Salter MD PADMINI
[2017-08-02] MEDS: Insulin Reg-LOW-Coverage SC SCH ×4 (08:45→21:31)
[2017-08-02] MEDS: Insulin Lispro 1 UNITS/0.01 ML SC SCH ×3 (08:49→17:06)
[2017-08-02] MEDS: Insulin Detemir 100 units/ml Vial (Levemir) SC SCH (21:30)
--- NOTE | 2017-08-02 22:16 | PN ---
PSYCHIATRIC PROGRESS NOTE HISTORY OF PRESENT ILLNESS: The patient is a 62-year-old male with a long history of schizoaffective disorder who has become progressively psychotic in recent weeks and months. He has been delusional about his brother hiring people to break into his house and stealing things. He has also had intermittent hallucinations. He has also had very poor erratic behavior and judgement. He has also, which still persists, an extreme thought disorder with loosening of association, difficulty focusing on, and staying on one subject. His reality testing is quite impaired. Today, the patient also has episodic racing thoughts. Last night, he had extreme difficulty sleeping despite 200 mg of clozapine, required p.r.n. Ativan. The patient's rest of mental status, he has poor eye contact. He is disheveled. His pants keep falling down despite his grooming and manures have been discussed with him frequently in the recent past. The patient's recent memory is intact. His judgement about the severity of his psychiatric condition is quite impaired. He still is persisting that his brother is trying to pay people to isabel him. Recently, he has persisted stating that he gave his car away to a drug user who refuses to return it. I discussed with the patient why he is adding Risperdal to clozapine as the patient has not responded well to high doses of clozapine and eventually received depot injections on a monthly basis. Also discussed with the patient his inappropriate behaviors with other females on the floor. MEDICATIONS: His current medications included Amaryl 4 mg at breakfast and dinner, clozapine 200 mg at bedtime, Glucophage 850 mg b.i.d., Humalog insulin 10 units before meals. He is on a human insulin protocol, low dose. He is receiving Levemir 15 units subcutaneous at bedtime, Lipitor, Norvasc. LABORATORY DATA: The only new laboratory data is a random glucose of 206 at 11:01 this morning. REVIEW OF SYSTEMS: Noncontributory. PHYSICAL EXAMINATION: The patient's vital signs, his blood pressure is 124/78, pulse 91, afebrile, respirations 18 per minute. IMPRESSION: The patient has severe schizoaffective disorder, bipolar type, with mixed features. He also has severe paranoia, history of diabetes mellitus, hypertension, hyperlipidemia. PLAN: We will start Risperdal 0.5 mg b.i.d. Continue clozapine 200 mg at bedtime. Continue to closely monitor mental status and discuss with treatment team. Simone Salter MD
[2017-08-02] MEDS ORDERED: Magnesium Hydroxide Susp 30 ml UD PO PRN (23:24)
[2017-08-02] MEDS: Alum-Mag Hydrox-Simethicone Susp (30 mL) PO PRN (23:32)
[2017-08-03 06:40] VITALS: O2SAT 95
--- NOTE | 2017-08-03 08:51 | PCM.PYCHPN ---
Psychiatric Progress Note - Psychiatric Progress Note Patient seen today, length of contact: 25 min Problems Identified/Issues Discussed: I reviewed assessment and recent notes. Patient was interviewed at beside. He appears unkempt and a little restless but generally in control. He is superficially cooperative with questioning and his thought process is tangential and scattered. Focus is poor. Patient denies depression or suicidal thoughts. He remains delusional, indicates that he was attacked in the projects and put into debt prior to admission. Patient also reports that he used to see the "river shift". Patient denies side effects, new pain or discomfort. Staff notes indicate he has been labile and inappropriate on the unit requiring constant redirection. There were no behavioral issues overnight. Diagnostic Results: Schizoaffective Disorder, bipolar mixed Medication Change: No Medical Record Reviewed: Yes Mental Status Examination - Cognitive Function Orientation: Person, Place, Situation, Time Attention: Poor Concentration: Poor Association: Loose - Mood Mood: Anxious - Affect Affect: Constricted, Blunted - Speech Speech: Appropriate - Formal Thought Process Formal Thought Process: Delusions, Paranoia, Loosening of associations - Suicidal Ideation Suicidal Ideation: No - Homicidal Ideation Homicidal Ideation: No Goal/Treatment Plan - Goal/Treatment Plan Progress Toward Problem(s) and Goals/Treatment Plan: * c/w current tx and plan * No new weekend labs thus far * Vitals reviewed and noted below: Selected Entries 05/13/16 08/02/17 08/02/17 07:17 07:01 08:50 Temperature 97.7 F 98.2 F Pulse Rate 81 91 H 91 H Respiratory 18 18 Rate Blood Pressure 130/81 124/78 124/78 08/02/17 15:00 Temperature Pulse Rate 104 H Respiratory Rate Blood Pressure 127/92 H
[2017-08-03] MEDS: Insulin Reg-LOW-Coverage SC SCH ×4 (10:30→22:15)
[2017-08-03] MEDS: Insulin Lispro 1 UNITS/0.01 ML SC SCH ×3 (10:35→17:09)
[2017-08-03 12:45] LABS: FOLATE 15.8 ng/mL
[2017-08-03] MEDS: Alum-Mag Hydrox-Simethicone Susp (30 mL) PO PRN ×2 (18:54→22:21)
[2017-08-03] MEDS: Insulin Detemir 100 units/ml Vial (Levemir) SC SCH (22:15)
[2017-08-04 07:19] VITALS: BP 101/59; PULSE 90; RESP 20; TEMP 97.6
[2017-08-04] MEDS: Insulin Reg-LOW-Coverage SC SCH ×4 (08:24→23:11)
[2017-08-04] MEDS: Insulin Lispro 1 UNITS/0.01 ML SC SCH ×3 (08:24→17:14)
--- NOTE | 2017-08-04 08:51 | PCM.PYCHPN ---
Psychiatric Progress Note - Psychiatric Progress Note Patient seen today, length of contact: 25 min Patient Chief Complaint: "I have been hospitalized a few times this year, I am not doing so well, not as well as I'd like to" Problems Identified/Issues Discussed: I reviewed recent notes and patient was interviewed at beside. He still appears unkempt and a little restless but generally in control. He is superficially cooperative with questioning and his thought process is tangential and scattered. Abruptly asks me if I am related to Dr. Moore. Focus is poor. Patient denies depression or suicidal thoughts but states "I have been hospitalized a few times this year, I am not doing so well, not as well as I'd like to". He remains delusional and reported yesterday that he used to see the "river shift". Patient denies side effects, new pain or discomfort. Staff notes indicate he has been delusional, labile and sexually preoccupied on the unit. He has required redirection. Can be isolative. There were no behavioral issues overnight. Diagnostic Results: Schizoaffective Disorder, bipolar mixed Medication Change: No Medical Record Reviewed: Yes Mental Status Examination - Cognitive Function Orientation: Person, Place, Situation, Time Attention: Poor Concentration: Poor Association: Loose - Mood Mood: Anxious, Other ("I have been hospitalized a few times this year, I am not doing so well, not as well as I'd like to") - Affect Affect: Constricted, Blunted - Speech Speech: Appropriate - Formal Thought Process Formal Thought Process: Delusions, Paranoia, Loosening of associations - Suicidal Ideation Suicidal Ideation: No - Homicidal Ideation Homicidal Ideation: No Goal/Treatment Plan - Goal/Treatment Plan Progress Toward Problem(s) and Goals/Treatment Plan: * c/w current tx and plan * No new weekend labs * Vitals reviewed and noted below: Selected Entries 08/03/17 08/03/17 08/03/17 06:39 10:37 18:04 Temperature 97.5 F L Pulse Rate 91 H 95 H 100 H Respiratory 19 Rate Blood Pressure 102/49 L 118/88 137/94 H
--- NOTE | 2017-08-04 11:35 | PCM.RRT ---
<Lance Goode - Last Filed: 08/04/17 12:04> DAIRY FARMER Nurse Assessment - Situation Date: 08/04/17 Time DAIRY FARMER was called: 11:08 DAIRY FARMER Responder Arrival Time: 11:11 DAIRY FARMER Location:: Psychiatry Unit DAIRY FARMER Reason for Call: Chest Pain DAIRY FARMER Called By: RN - IV IV Inserted during DAIRY FARMER?: No IV Fluids Initiated During DAIRY FARMER?: No - Respiratory Oxygen Delivery Method: Room Air Received Nebulizer Treatments:: No Was the Patient Ventilated with Bag/Mask 100% O2?: No Secretions Suctioned?: No Was the Patient Intubated?: No Was the Patient Placed on a Ventilator?: No - Medication Medications Administered During DAIRY FARMER: None - Diagnostic Test Ordered EKG: No (Deferred to the ED as patient was en route) Chest X-Ray: No CT Scan: No CPR started during DAIRY FARMER?: No - Finger Stick Blood Glucose Finger Stick Blood Glucose: 143 - [place] Coma Scale Coma Scale Eye Opening: Spontaneous Coma Scale Motor: Obeys Commands Movement Coma Scale Verbal: Oriented - Recommendations 5) DAIRY FARMER Level of Care Recommendations: Discharge to Emergency Room Notifications: Attending Physician I.Reason for DAIRY FARMER - A) Acute Change in Patient: (Select all that apply): Chest Pain - Neurological Status (Select all that apply): Alert, Responsive, Oriented - Respiratory Oxygen Delivery Method: Room Air - Constitutional Appears: No Acute Distress - Head Head Exam: ATRAUMATIC, NORMOCEPHALIC - Eyes Eye Exam: EOMI - Respiratory Exam Respiratory Exam: Clear to Ausculation Bilateral. absent: Rales, Wheezes - Cardiovascular Exam Cardiovascular Exam: RRR, +S1, +S2 - GI/Abdominal Exam GI & Abdominal Exam: Soft. absent: Distended, Tenderness - Neurological Exam Neurological Exam: Alert, Awake, Oriented x3 - Extremities Exam Extremities Exam: absent: Calf Tenderness, Pedal Edema Plan - Assessment of Findings&Treatment Plan DAIRY FARMER called overhead at 11:08. Pt complaining acute onset of chest pain radiating to the R upper ext, shortness of breath, and lightheadedness. Vitals: HR: 93 BP: 132/89 RR: 18 SO2: 98% BS: 141 PE: as per note Assessment/Plan: - 62M with pmh of DM, HTN, HL, schizoaffective disorder - DAIRY FARMER called for acute onset chest pain, sob, and lightheadedness - Patient was hemodynamically stable. Was transferred straight from the psychiatry unit to the ED - Stat EKG and labs including but not limited to CBC, CMP, serial cardiac iso, BNP in the ED - Pt signed out to the ED attending Dr Mendiola Pt and plan was seen, reviewed, and discussed with Dr Falcon. <Adrian Falcon - Last Filed: 08/04/17 15:52> DAIRY FARMER Nurse Assessment - Vital Signs Vital Sign: Rapid Response Vital Sign Blood Pressure 132/89 Pulse Rate 101 Respiratory Rate 18 Temperature 98.1 F Oxygen Saturation 98 Attending/Attestation - Attestation I have personally seen and examined this patient.: Yes I have fully participated in the care of the patient.: Yes I have reviewed all pertinent clinical information, including history, physical exam and plan: Yes Notes (Text): Echo reviewed which was done in 2016. Patient reports that Dr Zhou is his stamp classifier.
--- NOTE | 2017-08-04 13:24 | CP.PCM.HP ---
<Juan Ramon Finn - Last Filed: 08/04/17 15:03> History of Present Illness - History of Present Illness History of Present Illness: CC: chest pain Subjective: Patient is a 62 year old male, whose past medical history includes hypertension , hyperlipidemia, renal insufficiency, psychosis, and marijuana/cocaie abuse, presented to the emergency department from the inpatient psych floor at [facility] complaining of chest pain of about 30 minutes in length with no provoking event. States that the pain is substernal in location and radiates down the right arm. Chest pain was associated with lightheadedness and SOB. The chest pain and lightheadedness has resolved since onset. The SOB has significantly improved. Denies any fever, chills, abdominal pain, nausea, vomiting, diarrhea , and urinary symptoms. PMHx: DM, HTN, HL, schizoaffective disorder, renal insufficency, psychosis PSHX: right inguinal hernia repair, appendectomy, vastectomy Allergies: penicllin- anaphylaxis Family Hx: "cardiac disease" Social Hx: social ETOH use, former tobacco user 1.5 ppd for 10 years, quit 30 years ago, former cocaine use x 1, former synthetic marijauna user Physical Examination: Head: Present: Atraumatic, Normocephalic Eyes: Present: PERRL, EOMI Mouth: Present: Moist Mucous Membranes Neck: Present: Normal Range of Motion Respiratory/Chest: Present: Clear to Auscultation, Good Air Exchange. No: Respiratory Distress, Accessory Muscle Use Cardiovascular: Present: Regular Rate and Rhythm, Normal S1, S2. No: Murmurs Abdomen: Present: Normal Bowel Sounds. No: Tenderness, Distention, Peritoneal Signs Back: Present: Normal Inspection Extremities: Present: Normal Inspection. No: Cyanosis, Edema Neurological: Present: Patient is awake, alert, responds to verbal stimuli, answers questions appropriately, follows commands, and moves extremities past midline Skin: Present: Warm, Dry, Normal Color. No: Rashes Assessment and Plan: Chest Pain - rule out ACS - troponins negative x 1, trended - EKG reviewed and appreciated- NSR RBB QTc 508 - aspirin 325 given in ED, c/w 81 daily - lipid profile- elevated TAGs - Hbg A1c Diabetes - hold home metformin - continue with humalog, levemir - accuchecks ACHS - ISS - hold home metformin and glimperide Leukocytosis - no fever/chills likely reactive - blood culture and urine culture - UA pending Elevated Lipase - no abdominal pain - trend Hx of Hypertension - BPs trended, reviewed, and appreciated - continue home amlodipine Hx of Hyperlipidemia - continue with home statin Shizoaffective Disorder - psych consult - continue home clozapine Prophylaxis - pantoprazole - subq heparin Patient seen, case discussed with, and plan approved by attending physician, Dr. Falcon. Present on Admission - Present on Admission Any Indicators Present on Admission: No Past Patient History - Infectious Disease Hx of Infectious Diseases: None - Tetanus Immunizations Tetanus Immunization: Unknown - Past Social History Smoking Status: Current Some Days Smoker - CARDIAC Hx Cardiac Disorders: Yes Hx Hypertension: Yes - PULMONARY Hx Respiratory Disorders: No - NEUROLOGICAL Hx Neurological Disorder: No - HEENT Hx HEENT Problems: No - RENAL Hx Chronic Kidney Disease: No - ENDOCRINE/METABOLIC Hx Diabetes Mellitus Type 1: Yes - HEMATOLOGICAL/ONCOLOGICAL Hx Blood Disorders: No Hx Cancer: No - INTEGUMENTARY Hx Dermatological Problems: No - MUSCULOSKELETAL/RHEUMATOLOGICAL Hx Musculoskeletal Disorders: No Hx Unsteady Gait: No - GASTROINTESTINAL Hx Gastrointestinal Disorders: No - GENITOURINARY/GYNECOLOGICAL Hx Sexually Transmitted Disorders: No - PSYCHIATRIC Hx Anxiety: Yes Hx Bipolar Disorder: Yes Hx Depression: Yes Hx Schizophrenia: Yes Hx Substance Use: No - SURGICAL HISTORY Hx Appendectomy: Yes Hx Tonsillectomy: Yes - ANESTHESIA Hx Anesthesia: Yes Hx Anesthesia Reactions: No Hx Malignant Hyperthermia: No Meds Allergies/Adverse Reactions: Allergies Allergy/AdvReac Type Severity Reaction Status Date / Time Penicillins Allergy SHORTNESS Verified 04/06/17 14:12 OF BREATH Results - Vital Signs Recent Vital Signs: Last Vital Signs Temp 97.6 F 08/04/17 07:18 Pulse 90 08/04/17 08:23 Resp 20 08/04/17 07:18 BP 101/59 L 08/04/17 08:23 Pulse Ox 95 08/03/17 06:39 - Labs Result Diagrams: 07/31/17 09:07 07/31/17 09:07 Labs: Laboratory Results - last 24 hr 08/03/17 08/03/17 08/03/17 13:09 16:33 21:41 POC Glucose (mg/dL) 285 H 75 245 H 08/04/17 08/04/17 07:15 11:11 POC Glucose (mg/dL) 124 H 142 H <Adrian Flacon - Last Filed: 08/04/17 16:29> Results - Vital Signs Recent Vital Signs: Last Vital Signs Temp 97.6 F 08/04/17 07:18 Pulse 90 08/04/17 08:23 Resp 20 08/04/17 07:18 BP 101/59 L 08/04/17 08:23 Pulse Ox 95 08/03/17 06:39 - Labs Result Diagrams: 07/31/17 09:07 07/31/17 09:07 Labs: Laboratory Results - last 24 hr 08/03/17 08/03/17 08/03/17 13:09 16:33 21:41 POC Glucose (mg/dL) 285 H 75 245 H 08/04/17 08/04/17 07:15 11:11 POC Glucose (mg/dL) 124 H 142 H Attending/Attestation - Attestation I have personally seen and examined this patient.: Yes I have fully participated in the care of the patient.: Yes I have reviewed all pertinent clinical information: Yes Notes (Text): I have seen and examined the patient at bedside. Agree with the above note with the following additions/ exceptions: Briefly this is 62 year old male with history of HTN, dyslipidemia, IDDM, psychosis, cigar use, marijuana use, CHF due to systolic dysfunction (EF~45-50%) who was transferred from [facility] floor for evaluation of chest pain which started today radiating to his right arm. He will be observed in tele floor. Will monitor serial cardiac iso and ekg. First set of cardiac iso is negative. EKG does not show any ST or T wave changes. Will consult development assistant and order echo. Patient reports that he follows up with Dr Zhou. Will hold oral hypoglycemics. He has elevated lipase however no periumbilical pain or tenderness. Will repeat lipase in am. Continue norvasc and statins. Upon discharge patient will follow up with Dr Irwin. Dr Adrian Falcon
[2017-08-04] MEDS: Insulin Detemir 100 units/ml Vial (Levemir) SC SCH (23:12)
--- NOTE | 2017-08-06 03:53 | DS ---
ADMITTING DIAGNOSIS: Schizoaffective disorder. FINAL DIAGNOSES: Schizoaffective disorder, bipolar type, acute. The patient had acute chest pain, the patient has hyperlipidemia, obesity, he has history of hypertension, history of insulin-dependent diabetes mellitus. histoey of past marijuana and cocaine abuse. HISTORY OF PRESENT ILLNESS: The patient is a 62-year-old white was referred to the emergency room due to increasing symptomatology of psychosis with auditory hallucinations, thought disorder, severe paranoia. They have been refusing the hospital admission for many months. The patient has a long history of schizoaffective disorder with multiple psychiatric hospitalizations with above medical problems. MENTAL STATUS UPON ADMISSION: He was very psychotic with disorganized thinking. His thinking was loose and tangential. He had thought blocking. He was paranoid and delusional that his brother was paying people to break into his house and steal his possessions. The patient's hospital course, he was put under close observation, treated with therapy, seen in consultation by the hospitalist. He was treated on both multiple psychotropic medicines including 2 antipsychotic medicines and due to the fact that he was not responding to clozapine. His absolute neutrophil count was within normal range. The patient was noted to be disorganized, tangential, isolative and preoccupied, doing much with hospital stay. On the last hospital day, the patient had severe vice-like chest pain radiating into his right arm. The patient had rapid response, so the patient was referred to the emergency room for further evaluation. His medications at the time of discharge include Amaryl 4 mg at breakfast and dinner and Glucophage 850 mg b.i.d. both the diabetes mellitus, also a Humalog put in, insulin 10 units subcu before breakfast and Levemir 50 units subcu at bedtime both for diabetes. The patient is also receiving Lipitor 20 mg daily for hyperlipidemia, Norvasc 50 mg daily for hypertension, Risperdal 0.5 mg b.i.d. for psychosis. The patient's prognosis at this stage is guarded. He will need followup psychiatric consultation, probably subsequent readmission to psychiatric unit for treatment of psychiatric disorder. Simone Salter MD [facility] # [id number] MTDD
== END 2017-08-05 01:58 | disposition short-term general hospital (02) | DRG 885 ==
LOC: ED 07:09 → ERH 11:31 → PSYC 12:28
PROVIDERS: ADMIT Psychiatry & Neurology Psychiatry; ATTEND Psychiatry & Neurology Psychiatry
DX: F25.0 Schizoaffective disorder, bipolar type (principal); I10 Essential (primary) hypertension; E11.9 Type 2 diabetes mellitus without complications; E78.5 Hyperlipidemia, unspecified; F14.10 Cocaine abuse, uncomplicated; F12.10 Cannabis abuse, uncomplicated; E66.9 Obesity, unspecified; R07.9 Chest pain, unspecified; D72.829 Elevated white blood cell count, unspecified; Z68.30 Body mass index [BMI] 30.0-30.9, adult; Z91.19 Patient's noncompliance with other medical treatment and regimen; Z91.14 Patient's other noncompliance with medication regimen; Z79.4 Long term (current) use of insulin

== ENCOUNTER 2017-08-04 11:22 | Observation (INO) | payer MEDICARE ==
[2017-08-04 11:25] VITALS: BMI 29.5
[2017-08-04 11:55] LABS: BASO # 0.03 K/mm3 (0.0-2.0); BASO % 0.3 % (0.0-3.0); EOS # 0.3 (0.0-0.7); GRAN # 7.29 (1.4-6.5); GRAN % 64.5 % (50.0-68.0); HEMATOCRIT 49.5 % (42.0-52.0); LYMPH # 2.3 (1.2-3.4); LYMPH % 20.3 % (22.0-35.0); MEAN CELL VOLUME 83.3 fl (80.0-105.0); MEAN CORPUSCULAR HEMOGLOBIN 29.6 pg (25.0-35.0); MEAN CORPUSCULAR HGB CONC 35.6 g/dl (31.0-37.0); MEAN PLATELET VOLUME 10.5 fl (7.0-11.0); MONO # 1.4 (0.1-0.6); MONO % 11.9 % (1.0-6.0); RED CELL DISTRIBUTION WIDTH 12.6 % (11.5-14.5); WHITE BLOOD COUNT 11.3 10^3/ul (4.5-11.0)
[2017-08-04 12:04] LABS: ALB/GLOB RATIO 1.5 (1.1-1.8); ALKALINE PHOSPHATASE 66 U/L (38-126); ALT/SGPT 45 U/L (7-56); AST/SGOT 26 U/L (17-59); BILIRUBIN,TOTAL 0.8 mg/dL (0.2-1.3); BLOOD UREA NITROGEN 23 mg/dL (7-21); CALCIUM 9.4 mg/dL (8.4-10.5); CARBON DIOXIDE 27 mmol/L (21-33); CHLORIDE 104 mmol/L (98-107); GFR AFRICAN-AMERICAN > 60; GLUCOSE,RANDOM 133 mg/dL (70-110); SODIUM 142 mmol/L (132-148); TOTAL PROTEIN 6.8 g/dL (5.8-8.3)
[2017-08-04 12:06] LABS: INR 1.06 (0.93-1.08); PARTIAL THROMBOPLASTIN TIME 33.2 Seconds (23.7-30.8)
[2017-08-04] MEDS ORDERED: Sodium Chloride 0.9% 500 ML IV STA (12:09)
--- NOTE | 2017-08-04 12:11 | ED PDOC ---
Arrival/HPI - General Chief Complaint: Chest Pain Time Seen by Provider: 08/04/17 11:34 Historian: Patient - History of Present Illness Narrative History of Present Illness (Text): 08/04/17 12:07 62 year old male, whose past medical history includes hypertension, hyperlipidemia, renal insufficiency, psychosis, and marijuana abuse, presents to the emergency department from the inpatient psych floor at [facility] complaining of chest pain 20-30 minutes associated with being lightheaded. Patient states the chest pain resolved on it's own, but the "lousy lightheaded feeling" remains. He denies any headache, fever, chills, nausea, vomiting, diarrhea, urinary symptoms, back pain, neck pain, or any other complaints. PMD: Dr. Josias Irwin Time/Duration: Other (today ) Symptom Onset: Gradual Symptom Course: Unchanged Activities at Onset: Light Context: Other (inpatient psych) Past Medical History - Provider Review Nursing Documentation Reviewed: Yes - Infectious Disease Hx of Infectious Diseases: None - Tetanus Immunization Tetanus Immunization: Unknown - Cardiac Hx Cardiac Disorders: Yes Hx Hypertension: Yes - Pulmonary Hx Respiratory Disorders: No - Neurological Hx Neurological Disorder: No - HEENT Hx HEENT Disorder: No - Renal Hx Renal Disorder: No - Endocrine/Metabolic Hx Diabetes Mellitus Type 1: Yes - Hematological/Oncological Hx Blood Disorders: No Hx Cancer: No - Integumentary Hx Dermatological Disorder: No - Musculoskeletal/Rheumatological Hx Musculoskeletal Disorders: No Hx Unsteady Gait: No - Gastrointestinal Hx Gastrointestinal Disorders: No - Genitourinary/Gynecological Hx Sexually Transmitted Diseases: No - Psychiatric Hx Anxiety: Yes Hx Bipolar Disorder: Yes Hx Depression: Yes Hx Schizophrenia: Yes Hx Substance Use: No - Past Surgical History Past Surgical History: No Previous - Surgical History Hx Appendectomy: Yes Hx Tonsillectomy: Yes - Anesthesia Hx Anesthesia: Yes Hx Anesthesia Reactions: No Hx Malignant Hyperthermia: No - Suicidal Assessment Feels Threatened In Home Enviroment: No Family/Social History - Physician Review Nursing Documentation Reviewed: Yes Family/Social History: No Known Family HX Smoking Status: Current Some Days Smoker Hx Alcohol Use: No Hx Substance Use: No Hx Substance Use Treatment: No Allergies/Home Meds Allergies/Adverse Reactions: Allergies Penicillins Allergy (Verified 04/06/17 14:12) SHORTNESS OF BREATH Home Medications: Home Meds Medication Instructions Recorded Confirmed Clozapine [Fazaclo] 200 mg PO HS 04/06/17 08/04/17 amLODIPine [Norvasc] 5 mg PO DAILY 04/06/17 08/04/17 Glimepiride [amaRYL] 4 mg PO BRKDIN 07/31/17 08/04/17 Insulin Detemir [Levemir] 15 units SC HS 07/31/17 08/04/17 Insulin Lispro [humALOG] 15 units SC AC 07/31/17 08/04/17 cloZAPine [Clozaril] 200 mg PO BID 07/31/17 08/04/17 Review of Systems - Review of Systems Constitutional: absent: Fevers, Other (Chills) Respiratory: SOB. absent: Cough Cardiovascular: Chest Pain Gastrointestinal: absent: Diarrhea, Vomiting Genitourinary Male: absent: Dysuria, Frequency, Hematuria Musculoskeletal: absent: Back Pain, Neck Pain Neurological: Other (lightheaded ) Physical Exam Vital Signs Temp Pulse Pulse Resp BP BP Pulse Ox 08/04/17 11:22 99.1 F 96 H 92 H 20 146/77 146/77 96 Temperature: Afebrile Blood Pressure: Normal Pulse: Regular Respiratory Rate: Normal Appearance: Positive for: Well-Appearing Pain Distress: None Mental Status: Positive for: Alert and Oriented X 3 - Systems Exam Head: Present: Atraumatic, Normocephalic Pupils: Present: PERRL Conjunctiva: Present: Normal Mouth: Present: Moist Mucous Membranes Pharnyx: Present: Normal. No: ERYTHEMA, EXUDATE, Peritonsilar Swelling Neck: Present: Normal Range of Motion Respiratory/Chest: Present: Clear to Auscultation, Good Air Exchange. No: Respiratory Distress, Accessory Muscle Use Cardiovascular: Present: Regular Rate and Rhythm, Normal S1, S2. No: Murmurs Abdomen: Present: Normal Bowel Sounds. No: Tenderness, Distention, Peritoneal Signs Back: Present: Normal Inspection Upper Extremity: Present: Normal Inspection. No: Cyanosis, Edema Lower Extremity: Present: Normal Inspection. No: Edema Neurological: Present: GCS=15, CN II-XII Intact, Speech Normal Skin: Present: Warm, Dry, Normal Color. No: Rashes Psychiatric: Present: Alert, Oriented x 3, Normal Insight, Normal Concentration Medical Decision Making ED Course and Treatment: 08/04/17 12:07 Impression: 62 year old male presents complaining of being light headed after 20-30 minutes of chest pain and sob. Plan: -- EKG -- Labs -- Aspirin -- IV Flids -- Reassess and disposition Prior Visits: Notes and results from previous visits were reviewed. On 07/31/17 patient came in complaining of a "drunk feeling". Patient was discharged admitted. Progress Notes: EKG shows NSR at 92 BPM with RBBB QRS 170, normal axis, no ST/T changes compared to EKG on 07/31/17. Interpreted by me. Chest X-ray: NAD as read by me. 08/04/17 13:00 EKG is unchanged but blood work is unremarkable with a negative first set of CE. Given asa in the ED. He has multiple ACS risk factors and will need further observation on tele for serial CE, evaluation, and treatment of his cp. Discussed case with Dr. Adrian Falcon who is aware and agrees with the plan to observe on tele. - Lab Interpretations Lab Results: 08/04/17 11:45 08/04/17 11:45 Lab Results 08/04/17 11:45: Sodium 142, Potassium 4.0, Chloride 104, Carbon Dioxide 27, Anion Gap 15, BUN 23 H, Creatinine 1.0, Est GFR ( Amer) > 60, Est GFR ( Non-Af Amer) > 60, Random Glucose 133 H, Calcium 9.4, Total Bilirubin 0.8, AST 26, ALT 45, Alkaline Phosphatase 66, Lactate Dehydrogenase 324 L, Total Creatine Kinase 164, Troponin I < 0.01, Total Protein 6.8, Albumin 4.0, Globulin 2.7, Albumin/Globulin Ratio 1.5 08/04/17 11:45: PT 11.4, INR 1.06, APTT 33.2 H 08/04/17 11:45: WBC 11.3 H D, RBC 5.94, Hgb 17.6, Hct 49.5, MCV 83.3, MCH 29.6, MCHC 35.6, RDW 12.6, Plt Count 173, MPV 10.5, Gran % 64.5, Lymph % (Auto) 20.3 L , [place] % (Auto) 11.9 H, Eos % (Auto) 3.0, Baso % (Auto) 0.3, Gran # 7.29 H, Lymph # 2.3, [place] # 1.4 H, Eos # 0.3, Baso # 0.03 I have reviewed the lab results: Yes - RAD Interpretation Radiology Orders: 08/04/17 11:45 CHEST PORTABLE [RAD] Stat - EKG Interpretation Interpreted by ED Physician: Yes Type: 12 lead EKG - Medication Orders Current Medication Orders: Discontinued Medications Aspirin (Aspirin Chewable) 324 mg PO STAT STA Stop: 08/04/17 12:08 Last Admin: 08/04/17 12:21 Dose: 324 mg Sodium Chloride (Sodium Chloride 0.9%) 500 mls @ 999 mls/hr IV .Q31M STA Stop: 08/04/17 12:39 Last Admin: 08/04/17 12:23 Dose: 999 mls/hr eMAR Start Stop Document 08/04/17 12:23 CNR (Rec: 08/04/17 12:23 CNR [id number]) Intravenous Solution Start Date 08/04/17 Start Time 12:23 Disposition/Present on Arrival - Present on Arrival Any Indicators Present on Arrival: No History of DVT/PE: No History of Uncontrolled Diabetes: No Urinary Catheter: No History of Decub. Ulcer: No History Surgical Site Infection Following: None - Disposition Have Diagnosis and Disposition been Completed?: Yes Diagnosis: Chest pain Disposition: HOSPITALIZED Disposition Time: 12:20 Patient Plan: Observation, Telemetry Patient Problems: Current Active Problems Problem Status Onset Schizoaffective disorder Acute Condition: FAIR
[2017-08-04 12:20] LABS: TROPONIN I < 0.01 ng/mL
--- NOTE | 2017-08-04 12:29 | RAD ---
HISTORY: chest pain COMPARISON: Comparison chest 07/31/2017 FINDINGS: LUNGS: No active pulmonary disease. PLEURA: No significant pleural effusion identified, no pneumothorax apparent. CARDIOVASCULAR: Normal. OSSEOUS STRUCTURES: Mild multilevel degenerative spondylosis of the thoracic spine VISUALIZED UPPER ABDOMEN: Normal. OTHER FINDINGS: None. IMPRESSION: No active disease.
[2017-08-04 14:05] LABS: CHOLESTEROL 132 mg/dL (130-200)
--- NOTE | 2017-08-04 15:58 | CP.PCM.HP ---
<Juan Ramon Finn - Last Filed: 08/04/17 15:57> History of Present Illness - History of Present Illness History of Present Illness: History of Present Illness: CC: chest pain Subjective: Patient is a 62 year old male, whose past medical history includes hypertension , hyperlipidemia, renal insufficiency, psychosis, and marijuana/cocaie abuse, presented to the emergency department from the inpatient psych floor at [facility] complaining of chest pain of about 30 minutes in length with no provoking event. States that the pain is substernal in location and radiates down the right arm. Chest pain was associated with lightheadedness and SOB. The chest pain and lightheadedness has resolved since onset. The SOB has significantly improved. Denies any fever, chills, abdominal pain, nausea, vomiting, diarrhea , and urinary symptoms. PMHx: DM, HTN, HL, schizoaffective disorder, renal insufficency, psychosis PSHX: right inguinal hernia repair, appendectomy, vastectomy Allergies: penicllin- anaphylaxis Family Hx: "cardiac disease" Social Hx: social ETOH use, former tobacco user 1.5 ppd for 10 years, quit 30 years ago, former cocaine use x 1, former synthetic marijauna user Physical Examination: Head: Present: Atraumatic, Normocephalic Eyes: Present: PERRL, EOMI Mouth: Present: Moist Mucous Membranes Neck: Present: Normal Range of Motion Respiratory/Chest: Present: Clear to Auscultation, Good Air Exchange. No: Respiratory Distress, Accessory Muscle Use Cardiovascular: Present: Regular Rate and Rhythm, Normal S1, S2. No: Murmurs Abdomen: Present: Normal Bowel Sounds. No: Tenderness, Distention, Peritoneal Signs Back: Present: Normal Inspection Extremities: Present: Normal Inspection. No: Cyanosis, Edema Neurological: Present: Patient is awake, alert, responds to verbal stimuli, answers questions appropriately, follows commands, and moves extremities past midline Skin: Present: Warm, Dry, Normal Color. No: Rashes Assessment and Plan: Chest Pain - rule out ACS - troponins negative x 1, trended - EKG reviewed and appreciated- NSR RBB QTc 508 - aspirin 325 given in ED, c/w 81 daily - lipid profile- elevated TAGs - Hbg A1c Diabetes - hold home metformin - continue with humalog, levemir - accuchecks ACHS - ISS - hold home metformin and glimperide Leukocytosis - no fever/chills likely reactive - blood culture and urine culture - UA pending Elevated Lipase - no abdominal pain - trend Hx of Hypertension - BPs trended, reviewed, and appreciated - continue home amlodipine Hx of Hyperlipidemia - continue with home statin Shizoaffective Disorder - psych consult - continue home clozapine Prophylaxis - pantoprazole - subq heparin Patient seen, case discussed with, and plan approved by attending physician, Dr. Falcon. Present on Admission - Present on Admission Any Indicators Present on Admission: No Past Patient History - Infectious Disease Hx of Infectious Diseases: None - Tetanus Immunizations Tetanus Immunization: Unknown - Past Social History Smoking Status: Current Some Days Smoker - CARDIAC Hx Cardiac Disorders: Yes Hx Hypertension: Yes - PULMONARY Hx Respiratory Disorders: No - NEUROLOGICAL Hx Neurological Disorder: No - HEENT Hx HEENT Problems: No - RENAL Hx Chronic Kidney Disease: No - ENDOCRINE/METABOLIC Hx Diabetes Mellitus Type 1: Yes - HEMATOLOGICAL/ONCOLOGICAL Hx Blood Disorders: No Hx Cancer: No - INTEGUMENTARY Hx Dermatological Problems: No - MUSCULOSKELETAL/RHEUMATOLOGICAL Hx Musculoskeletal Disorders: No Hx Unsteady Gait: No - GASTROINTESTINAL Hx Gastrointestinal Disorders: No - GENITOURINARY/GYNECOLOGICAL Hx Sexually Transmitted Disorders: No - PSYCHIATRIC Hx Anxiety: Yes Hx Bipolar Disorder: Yes Hx Depression: Yes Hx Schizophrenia: Yes Hx Substance Use: No - SURGICAL HISTORY Hx Appendectomy: Yes Hx Tonsillectomy: Yes - ANESTHESIA Hx Anesthesia: Yes Hx Anesthesia Reactions: No Hx Malignant Hyperthermia: No Meds Allergies/Adverse Reactions: Allergies Allergy/AdvReac Type Severity Reaction Status Date / Time Penicillins Allergy SHORTNESS Verified 04/06/17 14:12 OF BREATH Results - Vital Signs Recent Vital Signs: Last Vital Signs Temp 99.1 F 08/04/17 11:22 Pulse 93 H 08/04/17 14:31 Resp 22 08/04/17 13:00 BP 131/85 08/04/17 14:31 Pulse Ox 97 08/04/17 14:31 - Labs Result Diagrams: 08/04/17 11:45 08/04/17 11:45 Labs: Laboratory Results - last 24 hr 08/04/17 08/04/17 12:35 12:45 Magnesium 2.0 Triglycerides 316 H Cholesterol 132 LDL Cholesterol Direct 73 HDL Cholesterol 26 L Lipase 456 H <Adrian Falcon - Last Filed: 08/04/17 16:30> Results - Vital Signs Recent Vital Signs: Last Vital Signs Temp 99.1 F 08/04/17 11:22 Pulse 91 H 08/04/17 16:00 Resp 18 08/04/17 16:00 BP 137/87 08/04/17 16:00 Pulse Ox 96 08/04/17 16:00 - Labs Result Diagrams: 08/04/17 11:45 08/04/17 11:45 Labs: Laboratory Results - last 24 hr 08/04/17 08/04/17 12:35 12:45 Magnesium 2.0 Triglycerides 316 H Cholesterol 132 LDL Cholesterol Direct 73 HDL Cholesterol 26 L Lipase 456 H Attending/Attestation - Attestation I have personally seen and examined this patient.: Yes I have fully participated in the care of the patient.: Yes I have reviewed all pertinent clinical information: Yes Notes (Text): I have seen and examined the patient at bedside. Agree with the above note with the following additions/ exceptions: Briefly this is 62 year old male with history of HTN, dyslipidemia, IDDM, psychosis, cigar use, marijuana use, CHF due to systolic dysfunction (EF~45-50%) who was transferred from [facility] floor for evaluation of chest pain which started today radiating to his right arm. He will be observed in tele floor. Will monitor serial cardiac iso and ekg. First set of cardiac iso is negative. EKG does not show any ST or T wave changes. Will consult die attaching machine tender and order echo. Patient reports that he follows up with Dr Zhou. Will hold oral hypoglycemics. He has elevated lipase however no periumbilical pain or tenderness. Will repeat lipase in am. Continue norvasc and statins. Upon discharge patient will follow up with Dr Irwin. Dr Adrian Falcon
[2017-08-04 16:30] LABS: PH,URINE 6.5 (4.7-8.0); URINE BILIRUBIN NEGATIVE (NEGATIVE); URINE BLOOD NEGATIVE (NEGATIVE); URINE GLUCOSE (UA) NEGATIVE (NEGATIVE); URINE KETONE NEGATIVE (NEGATIVE); URINE LEUKOCYTE ESTERASE NEGATIVE Leu/uL (NEGATIVE); URINE PROTEIN 30 mg/dL (<30 mg/dL); URINE UROBILINOGEN 0.2 E.U./dL (<1 E.U./dL)
[2017-08-04 16:36] LABS: URINE APPEARANCE SL CLOUDY (CLEAR); URINE COLOR YELLOW (YELLOW)
[2017-08-04 16:43] LABS: URINE AMORPHOUS SEDIMENT MODERATE; URINE BACTERIA MANY (NEG); URINE RBC NEGATIVE /hpf (0-2)
[2017-08-04] MEDS: Insulin Lispro 1 UNITS/0.01 ML SC SCH (18:03)
[2017-08-04] MEDS: Insulin Lispro (humaLOG) MEDIUM Coverage SC SCH ×2 (18:08→22:08)
[2017-08-04] MEDS ORDERED: Insulin Detemir 100 units/ml Vial (Levemir) SC SCH (22:00)
[2017-08-04] MEDS ORDERED: INSULIN DETEMIR 15 UNIT SC SCH (22:00)
[2017-08-05 06:50] LABS: BASO # 0.03 K/mm3 (0.0-2.0); BASO % 0.3 % (0.0-3.0); EOS # 0.4 (0.0-0.7); EOS % 4.1 % (1.5-5.0); GRAN # 6.08 (1.4-6.5); GRAN % 59.1 % (50.0-68.0); HEMATOCRIT 47.4 % (42.0-52.0); LYMPH # 2.7 (1.2-3.4); LYMPH % 26.2 % (22.0-35.0); MEAN CELL VOLUME 83.2 fl (80.0-105.0); MEAN CORPUSCULAR HEMOGLOBIN 28.8 pg (25.0-35.0); MEAN CORPUSCULAR HGB CONC 34.6 g/dl (31.0-37.0); MEAN PLATELET VOLUME 10.3 fl (7.0-11.0); MONO # 1.1 (0.1-0.6); MONO % 10.3 % (1.0-6.0); RED CELL DISTRIBUTION WIDTH 12.7 % (11.5-14.5); WHITE BLOOD COUNT 10.3 10^3/ul (4.5-11.0)
[2017-08-05 07:09] LABS: ALB/GLOB RATIO 1.4 (1.1-1.8); ALKALINE PHOSPHATASE 65 U/L (38-126); ALT/SGPT 41 U/L (7-56); AST/SGOT 28 U/L (17-59); BLOOD UREA NITROGEN 22 mg/dL (7-21); CARBON DIOXIDE 25 mmol/L (21-33); CHLORIDE 109 mmol/L (98-107); GFR AFRICAN-AMERICAN > 60; GLUCOSE,RANDOM 110 mg/dL (70-110); LIPASE 233 U/L (23-300); MAGNESIUM 1.8 mg/dL (1.7-2.2); PHOSPHOROUS 4.1 mg/dL (2.5-4.5); POTASSIUM 3.8 mmol/L (3.6-5.0); SODIUM 143 mmol/L (132-148); TOTAL PROTEIN 6.5 g/dL (5.8-8.3)
[2017-08-05] MEDS: Insulin Lispro (humaLOG) MEDIUM Coverage SC SCH ×4 (07:56→21:51)
[2017-08-05] MEDS: Insulin Lispro 1 UNITS/0.01 ML SC SCH ×3 (08:01→16:14)
[2017-08-05] MEDS: Pantoprazole 40 mg EC Tab PO SCH (10:22)
--- NOTE | 2017-08-05 11:42 | CP.PCM.PN ---
<Juan Ramon Finn - Last Filed: 08/05/17 11:36> Subjective - Date & Time of Evaluation Date of Evaluation: 08/05/17 Time of Evaluation: 09:15 - Subjective Subjective: Subjective: Patient seen and examined at bedside. Resting comfortably in bed. No acute overnight events. Patient states SOB have improved relative to baseline. Offers no new complaints at this time. Denies f/c/cp/abdominal pain/n/v/d/c/urinary sxs. Physical Examination: Head: Present: Atraumatic, Normocephalic Eyes: Present: PERRL, EOMI Mouth: Present: Moist Mucous Membranes Neck: Present: Normal Range of Motion Respiratory/Chest: Present: Clear to Auscultation, Good Air Exchange. No: Respiratory Distress, Accessory Muscle Use Cardiovascular: Present: Regular Rate and Rhythm, Normal S1, S2. No: Murmurs Abdomen: Present: Normal Bowel Sounds. No: Tenderness, Distention, Peritoneal Signs Back: Present: Normal Inspection Extremities: Present: Normal Inspection. No: Cyanosis, Edema Neurological: Present: Patient is awake, alert, responds to verbal stimuli, answers questions appropriately, follows commands, and moves extremities past midline Skin: Present: Warm, Dry, Normal Color. No: Rashes Assessment and Plan: Chest Pain - ACS ruled out - troponins negative x 3 - EKG reviewed and appreciated- NSR RBB QTc 508 - aspirin 325 given in ED, c/w 81 daily - lipid profile- elevated TAGs - Hbg A1c pending - cardiology consult- ECHO ordered and Dr. Zhou will be performing a stress test Diabetes - continue with humalog, levemir - accuchecks ACHS - ISS - hold home metformin and glimperide Leukocytosis - no fever/chills likely reactive - blood culture and urine culture - UA reviewed and appreciated- amorphous sediment and proteins Elevated Lipase - no abdominal pain - resolved Hx of Hypertension - BPs trended, reviewed, and appreciated - continue home amlodipine Hx of Hyperlipidemia - continue with home statin Shizoaffective Disorder - psych consult- appreciate recs - continue home clozapine Prophylaxis - pantoprazole - subq heparin Patient seen, case discussed with, and plan approved by attending physician, Dr. Arana. Objective - Vital Signs/Intake and Output Vital Signs (last 24 hours): Temp Pulse Resp BP Pulse Ox 97.6 F 91 H 19 126/70 96 10/16/17 06:00 08/05/17 10:22 08/05/17 06:00 08/05/17 10:22 08/05/17 06:00 - Medications Medications: Current Medications Amlodipine Besylate (Norvasc) 5 mg PO DAILY [facility] Last Admin: 08/05/17 10:22 Dose: 5 mg Aspirin (Ecotrin) 81 mg PO DAILY [facility] Last Admin: 08/05/17 10:22 Dose: 81 mg Atorvastatin Calcium (Lipitor) 20 mg PO DIN [facility] Last Admin: 08/04/17 18:02 Dose: 20 mg Clozapine (Clozaril) 200 mg PO HS [facility] PRN Reason: Protocol Heparin Sodium (Porcine) (Heparin) 5,000 units SC Q8 [facility] PRN Reason: Protocol Last Admin: 08/05/17 05:39 Dose: 5,000 units Insulin Detemir (Levemir) 15 unit SC HS [facility] Last Admin: 08/04/17 22:22 Dose: 15 unit Insulin Human Lispro (Humalog Med) 0 units SC ACHS [facility] PRN Reason: Protocol Last Admin: 08/05/17 07:56 Dose: Not Given Insulin Human Lispro (Humalog) 15 units SC AC [facility] Last Admin: 08/05/17 08:01 Dose: 15 units Pantoprazole Sodium (Protonix Ec Tab) 40 mg PO DAILY [facility] Last Admin: 08/05/17 10:22 Dose: 40 mg - Labs Labs: 08/05/17 06:41 08/05/17 06:41 PT 11.4 Seconds (9.9-11.8) 08/04/17 11:45 INR 1.06 (0.93-1.08) 08/04/17 11:45 APTT 33.2 Seconds (23.7-30.8) H 08/04/17 11:45 <Rangasamy,Ajantha - Last Filed: 08/05/17 17:45> Objective - Vital Signs/Intake and Output Vital Signs (last 24 hours): Temp Pulse Resp BP Pulse Ox 97.5 F L 92 H 20 136/79 96 08/05/17 12:00 08/05/17 14:00 08/05/17 12:00 08/05/17 12:00 08/05/17 06:00 - Medications Medications: Current Medications Amlodipine Besylate (Norvasc) 5 mg PO DAILY [facility] Last Admin: 08/05/17 10:22 Dose: 5 mg Aspirin (Ecotrin) 81 mg PO DAILY [facility] Last Admin: 08/05/17 10:22 Dose: 81 mg Atorvastatin Calcium (Lipitor) 20 mg PO DIN [facility] Last Admin: 08/04/17 18:02 Dose: 20 mg Clozapine (Clozaril) 200 mg PO HS [facility] PRN Reason: Protocol Heparin Sodium (Porcine) (Heparin) 5,000 units SC Q8 [facility] PRN Reason: Protocol Last Admin: 08/05/17 14:19 Dose: 5,000 units Insulin Detemir (Levemir) 15 unit SC HS [facility] Last Admin: 08/04/17 22:22 Dose: 15 unit Insulin Human Lispro (Humalog Med) 0 units SC ACHS [facility] PRN Reason: Protocol Last Admin: 08/05/17 16:13 Dose: 3 units Insulin Human Lispro (Humalog) 15 units SC AC [facility] Last Admin: 08/05/17 16:14 Dose: 15 units Pantoprazole Sodium (Protonix Ec Tab) 40 mg PO DAILY [facility] Last Admin: 08/05/17 10:22 Dose: 40 mg Risperidone (Risperdal Tab) 1 mg PO BID [facility] - Labs Labs: 08/05/17 06:41 08/05/17 06:41 PT 11.4 Seconds (9.9-11.8) 08/04/17 11:45 INR 1.06 (0.93-1.08) 08/04/17 11:45 APTT 33.2 Seconds (23.7-30.8) H 08/04/17 11:45 Attending/Attestation - Attestation I have personally seen and examined this patient.: Yes I have fully participated in the care of the patient.: Yes I have reviewed all pertinent clinical information, including history, physical exam and plan: Yes Notes (Text): 08/05/17 17:24 attending note; Patient seen and examined with the resident. Patient is a 62 year old male with past medical history of HTN, dyslipidemia, IDDM, psychosis, cigar use, marijuana use, CHF due to systolic dysfunction (EF~ 45-50%) who was transferred from [facility] floor for evaluation of chest pain. EKG does not show any ST or T wave changes. cardiac enzymes negative. case discussed with leather piece inspector in detail. Plan for stress test tomorrow. DM/HTN controlled. continue meds. Psychiatric evaluation appreciated. Continue clozapine and risperidone. Possible transfer to psych tomorrow if stress test is negative.
--- NOTE | 2017-08-05 12:24 | CARD ---
APPROVED REPORT EKG Measurement Heart [id number] <Conclusion> Normal sinus rhythm Right bundle branch block Abnormal ECG
--- NOTE | 2017-08-05 13:56 | CON ---
HISTORY OF PRESENT ILLNESS: The patient is a 62-year-old white male, reviewed the chart, spoke to the nursing staff. The patient was being treated on the psychiatric unit for acute schizoaffective disorder. He suddenly had yesterday severe crushing retrosternal chest pain radiating into his arm. He was sent to the ER and now he is on telemetry for monitoring. PAST MEDICAL HISTORY: He has a long history of psychotic disorder consistent with schizoaffective disorder. He has type 2 diabetes mellitus, obesity. He has history of hyperlipidemia. The patient has a history of noncompliance. The patient has history in the past of renal insufficiency, hernia repair, appendectomy, vasectomy. History of multiple psychiatric admissions here. PERSONAL HISTORY: He lives alone. He has 1 brother. He has former tobacco use in the past, tells me he quit many years ago. He has abused cocaine and marijuana in the past, although his screen for substance abuse was negative on admission. The patient lives alone in a family home. He has a girlfriend for many years a with psychiatric disorder, who lives with her family. The patient has no history of suicide attempts. CURRENT MEDICATIONS: Include Clozapine 200 mg at bedtime, Ecotrin 81 mg daily, Humalog insulin, Levemir, Lipitor, Norvasc, Protonix. He was also taking until yesterday Risperdal 0.5 mg b.i.d. LABORATORY DATA: His white count is 11,300 on admission, 10,300 today. Rest of parameters are normal. His metabolic profile is normal except for chloride of 109, BUN of 22. His most recent blood sugar is 75. Rest of profile were normal including troponin I level of 0.01. His electrocardiogram was interpreted as normal sinus rhythm with right bundle branch block, QTc interval of 509. PHYSICAL EXAMINATION: VITAL SIGNS: Blood pressure 136/79, pulse 86, afebrile, respirations 20 per minute. PSYCHIATRIC: His mental status, he is awake, he is alert, somewhat vague and invasive, suspicious, paranoia, some degree of thought blocking. The patient is oriented x3, poor eye contact. Has no suicidal intent. No hallucinations. No auditory hallucinations recently. IMPRESSION: 1. Schizoaffective disorder. 2. Acute chest pain, diabetes mellitus. The patient has hyperlipidemia, history of hypertension and obesity. PLAN: We will review psychotropic medicines, monitor mental status, and readmit to the psychiatric unit when medically stable. Simone Salter MD MTDRacheal
--- NOTE | 2017-08-05 18:39 | CON ---
DATE: CONSULTATION INDICATIONS: Chest pain, lightheadedness. HISTORY OF PRESENT ILLNESS: This is a 62-year-old man who developed chest pain and lightheadedness yesterday on the Psychiatric Unit. He was taken to the emergency room, evaluated and admitted to Telemetry. The chest pain was substernal. It radiated into his right arm. It lasted about 20 to 30 minutes. It is resolved this morning. He was also lightheaded and did not feel well. This morning, he feels better. There is no exertional chest pain, orthopnea, PND, syncope, presyncope, vertigo, palpitation, edema, claudication, fevers, chills, cough, sputum production, hemoptysis, abdominal pain, nausea, vomiting, diarrhea, constipation, melena. PAST MEDICAL HISTORY: Notable for coronary artery disease, chronic right bundle branch block, diabetes, hyperlipidemia, hypertension and schizoaffective disorder.. SOCIAL HISTORY: He smokes cigarettes. He has used drugs including cocaine and marijuana. He has been treated for psychosis and acute schizoaffective disorder. An echocardiogram in 04/2016 revealed mild LV dysfunction with [id number] mitral regurgitation and tricuspid regurgitation. PAST SURGICAL HISTORY: He has had a right inguinal hernia repair, appendectomy and vasectomy. MEDICATIONS: At this time include aspirin, Clozaril, subQ heparin, lispro insulin, Levemir, Lipitor, Norvasc, Protonix. ALLERGIES: HE NOTES ALLERGY TO PENICILLIN. He is a smoker. He said he is going to quit. He has used recreational drugs. FAMILY HISTORY: Notable for heart disease. REVIEW OF SYSTEMS: 10-point review of systems is otherwise unremarkable except as noted above. PHYSICAL EXAMINATION GENERAL: He is a well-developed male lying in bed on Telemetry, in no acute distress. VITAL SIGNS: Notable for sinus rhythm at 98 beats per minute. He is afebrile. Blood pressure 121/42, respirations 16 to 19, and O2 saturation 96% on room air. HEENT: Reveals no neck vein distention, thyromegaly or carotid bruits. Mucous membranes moist. Conjunctivae pink. NECK: Supple. LUNGS: Elise clear. HEART: Reveals normal first and second heart sounds. No murmur, gallop, rub or click. ABDOMEN: Soft. Bowel sounds present. No mass, organomegaly, tenderness, rebound or guarding. EXTREMITIES EXAM: No cyanosis, clubbing or edema. NEUROLOGIC: Awake, alert, and oriented. SKIN: Warm and dry. PSYCHIATRIC: Awake, normal mood and affect. LABORATORY AND IMAGING DATA: A chest x-ray reveals no active disease. EKG reveals sinus rhythm, right bundle branch block, nonspecific ST wave changes. CBC is unremarkable. PT, INR, PTT unremarkable. Electrolytes, BUN, creatinine, blood sugars noted, normal with blood sugars in the 130 to 200 range, magnesium 2.0, LFTs unremarkable. CK 164. Two troponins negative. Total cholesterol 132, LDL 73, HDL 26, triglycerides 316, lipase 456. IMPRESSION: Jj Renteria is a 62-year-old diabetic male with chronic right bundle branch block who complained of chest pain while on the Psych unit. There is no evidence of acute myocardial infarction, no arrhythmia has been detected. PLAN: At this time, we will continue his cardiac meds. I will order an echocardiogram and will schedule a nuclear stress test, perhaps tomorrow if it can be arranged. He will continue aspirin, subQ heparin, Lipitor, Norvasc, Protonix. I will repeat his EKG this morning. He can be out of bed. He will report any further chest pain, I will be review his old records. I will follow along with you and make additional recommendations based on his clinical course. Emmanuel Zhou MD PADMINI
[2017-08-06 05:31] VITALS: O2SAT 95
[2017-08-06 06:39] LABS: BASO # 0.05 K/mm3 (0.0-2.0); BASO % 0.5 % (0.0-3.0); EOS # 0.4 (0.0-0.7); EOS % 4.1 % (1.5-5.0); GRAN # 5.58 (1.4-6.5); GRAN % 58.2 % (50.0-68.0); HEMATOCRIT 50.8 % (42.0-52.0); LYMPH # 2.6 (1.2-3.4); LYMPH % 26.9 % (22.0-35.0); MEAN CELL VOLUME 83.4 fl (80.0-105.0); MEAN CORPUSCULAR HEMOGLOBIN 29.2 pg (25.0-35.0); MEAN PLATELET VOLUME 10.8 fl (7.0-11.0); MONO % 10.3 % (1.0-6.0); RED CELL DISTRIBUTION WIDTH 12.6 % (11.5-14.5); WHITE BLOOD COUNT 9.6 10^3/ul (4.5-11.0)
[2017-08-06 07:06] LABS: ALB/GLOB RATIO 1.4 (1.1-1.8); ALKALINE PHOSPHATASE 74 U/L (38-126); ALT/SGPT 45 U/L (7-56); AST/SGOT 32 U/L (17-59); BILIRUBIN,TOTAL 1.1 mg/dL (0.2-1.3); BLOOD UREA NITROGEN 22 mg/dL (7-21); CALCIUM 9.2 mg/dL (8.4-10.5); CARBON DIOXIDE 25 mmol/L (21-33); CHLORIDE 106 mmol/L (98-107); GFR AFRICAN-AMERICAN > 60; GLUCOSE,RANDOM 143 mg/dL (70-110); POTASSIUM 4.1 mmol/L (3.6-5.0); SODIUM 143 mmol/L (132-148); TOTAL PROTEIN 7.1 g/dL (5.8-8.3)
[2017-08-06] MEDS: Insulin Lispro 1 UNITS/0.01 ML SC SCH ×4 (07:47→17:18)
[2017-08-06] MEDS: Insulin Lispro (humaLOG) MEDIUM Coverage SC SCH ×4 (07:48→17:15)
--- NOTE | 2017-08-06 07:50 | CARD ---
APPROVED REPORT EXAM: Two-dimensional and M-mode echocardiogram with Doppler and color Doppler. Other Information Quality : FairRhythm : INDICATION Chest Pain 2D DIMENSIONS Left Atrium (2D)3.4 (1.6-4.0cm)IVSd1.2 (0.7-1.1cm) LVDd4.8 (3.9-5.9cm)PWd1.2 (0.7-1.1cm) LVDs3.6 (2.5-4.0cm)FS (%) 26.0 % LVEF (%)51.3 (>50%) M-Mode DIMENSIONS Aortic Root3.30 (2.2-3.7cm)Aortic Cusp Exc.1.90 (1.5-2.0cm) Aortic Valve AoV Peak Zzwupmby195.0cm/s Mitral Valve MV E Gdebnaor02.7cm/sMV A Opyhesos77.0cm/sE/A ratio0.7 TDI E/Lateral E'0.0E/Medial E'0.0 Tricuspid Valve TR Peak [id number]/sRAP [id number] Peak Gr.14mmHg [id number] LEFT VENTRICLE The left ventricle is normal size. There is borderline concentric left ventricular hypertrophy. The left ventricular function is normal. The left ventricular ejection fraction is within the low normal range. There is normal LV segmental wall motion. RIGHT VENTRICLE The right ventricle is normal size. ATRIA The left atrium size is normal. The right atrium size is normal. AORTIC VALVE The aortic valve is normal in structure. MITRAL VALVE The mitral valve is normal in structure. Mitral regurgitation is mild. TRICUSPID VALVE The tricuspid valve is normal in structure. There is mild tricuspid regurgitation. PULMONIC VALVE The pulmonic valve is not well visualized. GREAT VESSELS The aortic root is normal in size. PERICARDIAL EFFUSION There is no pericardial effusion. <Conclusion> The left ventricle is normal size. There is borderline concentric left ventricular hypertrophy. The left ventricular function is normal. The left ventricular ejection fraction is within the low normal range. Mitral regurgitation is mild. There is mild tricuspid regurgitation.
--- NOTE | 2017-08-06 08:02 | CP.PCM.PN ---
Subjective - Date & Time of Evaluation Date of Evaluation: 08/06/17 Time of Evaluation: 07:00 - Subjective Subjective: Stable on 2R. No CP or SOB. V/S noted. RSR. PE: Lungs: clear Cor.: S1S2 Abd.: soft Ext.: no edema Neuro: alert Labs noted: trops neg. x 3, Trig.=316 BC x2 NG at 24 hrs. Echo noted: Low normal EF ~ 50% Objective - Vital Signs/Intake and Output Vital Signs (last 24 hours): Temp Pulse Resp BP Pulse Ox 98.3 F 93 H 20 108/71 95 08/06/17 05:30 08/06/17 05:30 08/06/17 05:30 08/06/17 05:30 08/06/17 05:30 Intake and Output: 08/06/17 08/06/17 06:59 18:59 Intake Total 120 Output Total 0 Balance 120 - Medications Medications: Current Medications Amlodipine Besylate (Norvasc) 5 mg PO DAILY [facility] Last Admin: 08/05/17 10:22 Dose: 5 mg Aspirin (Ecotrin) 81 mg PO DAILY [facility] Last Admin: 08/05/17 10:22 Dose: 81 mg Atorvastatin Calcium (Lipitor) 20 mg PO DIN [facility] Last Admin: 08/05/17 17:25 Dose: 20 mg Clozapine (Clozaril) 200 mg PO HS [facility] PRN Reason: Protocol Last Admin: 08/05/17 21:07 Dose: 200 mg Heparin Sodium (Porcine) (Heparin) 5,000 units SC Q8 DEREK PRN Reason: Protocol Last Admin: 08/06/17 05:04 Dose: 5,000 units Insulin Detemir (Levemir) 15 unit SC HS [facility] Last Admin: 08/04/17 22:22 Dose: 15 unit Insulin Human Lispro (Humalog Med) 0 units SC ACHS [facility] PRN Reason: Protocol Last Admin: 08/06/17 07:48 Dose: Not Given Insulin Human Lispro (Humalog) 15 units SC AC [facility] Last Admin: 08/06/17 07:47 Dose: Not Given Pantoprazole Sodium (Protonix Ec Tab) 40 mg PO DAILY [facility] Last Admin: 08/05/17 10:22 Dose: 40 mg Risperidone (Risperdal Tab) 1 mg PO BID [facility] Last Admin: 08/05/17 17:24 Dose: 1 mg - Labs Labs: 08/06/17 06:28 08/06/17 06:28 PT 11.4 Seconds (9.9-11.8) 08/04/17 11:45 INR 1.06 (0.93-1.08) 08/04/17 11:45 APTT 33.2 Seconds (23.7-30.8) H 08/04/17 11:45 Assessment and Plan - Assessment and Plan (Free Text) Assessment: Chest Pain RBBB H/O CAD MR, mild to moderate on echo Schizoaffective Discorder Diabetes HLD HBP Smoker H/O Substance Abuse Plan: Nuclear stress test today. OOB Continue cardiac meds. D/C smoking advised. As per Dr. Salter and Dr. Arana
[2017-08-06] MEDS ORDERED: Aminophylline 25 mg/ml Inj ONE (08:13)
[2017-08-06] MEDS: Pantoprazole 40 mg EC Tab PO SCH (09:29)
--- NOTE | 2017-08-06 10:09 | CP.PCM.DIS ---
<Juan Ramon Finn - Last Filed: 08/06/17 12:36> Provider - Provider Date of Admission: 08/04/17 12:22 Attending physician: Jennifer Arana MD Primary care physician: Simone Salter MD Time Spent in preparation of Discharge (in minutes): 45 Diagnosis - Discharge Diagnosis (1) Hypertension Status: Acute Priority: Medium (2) Hyperlipidemia Status: Acute Priority: Medium (3) Chest pain Status: Acute Priority: Medium (4) Diabetes mellitus type 2 in nonobese Status: Acute Priority: Medium (5) Schizoaffective disorder Status: Acute Priority: Medium Hospital Course - Lab Results Lab Results: Micro Results 08/04/17 17:45 Blood Blood Culture - Preliminary NO GROWTH AFTER 24 HOURS 08/04/17 17:00 Blood Blood Culture - Preliminary NO GROWTH AFTER 24 HOURS Most Recent Lab Values WBC 9.6 10^3/ul (4.5-11.0) 08/06/17 06:28 RBC 6.09 10^6/uL (3.5-6.1) 08/06/17 06:28 Hgb 17.8 g/dL (14.0-18.0) 08/06/17 06:28 Hct 50.8 % (42.0-52.0) 08/06/17 06:28 MCV 83.4 fl (80.0-105.0) 08/06/17 06:28 MCH 29.2 pg (25.0-35.0) 08/06/17 06:28 MCHC 35.0 g/dl (31.0-37.0) 08/06/17 06:28 RDW 12.6 % (11.5-14.5) 08/06/17 06:28 Plt Count 188 10^3/uL (120.0-450.0) 08/06/17 06:28 MPV 10.8 fl (7.0-11.0) 08/06/17 06:28 Gran % 58.2 % (50.0-68.0) 08/06/17 06:28 Lymph % (Auto) 26.9 % (22.0-35.0) 08/06/17 06:28 [place] % (Auto) 10.3 % (1.0-6.0) H 08/06/17 06:28 Eos % (Auto) 4.1 % (1.5-5.0) 08/06/17 06:28 Baso % (Auto) 0.5 % (0.0-3.0) 08/06/17 06:28 Gran # 5.58 (1.4-6.5) 08/06/17 06:28 Lymph # 2.6 (1.2-3.4) 08/06/17 06:28 [place] # 1.0 (0.1-0.6) H 08/06/17 06:28 Eos # 0.4 (0.0-0.7) 08/06/17 06:28 Baso # 0.05 K/mm3 (0.0-2.0) 08/06/17 06:28 PT 11.4 Seconds (9.9-11.8) 08/04/17 11:45 INR 1.06 (0.93-1.08) 08/04/17 11:45 APTT 33.2 Seconds (23.7-30.8) H 08/04/17 11:45 Sodium 143 mmol/L (132-148) 08/06/17 06:28 Potassium 4.1 mmol/L (3.6-5.0) 08/06/17 06:28 Chloride 106 mmol/L (98-107) 08/06/17 06:28 Carbon Dioxide 25 mmol/L (21-33) 08/06/17 06:28 Anion Gap 16 (10-20) 08/06/17 06:28 BUN 22 mg/dL (7-21) H 08/06/17 06:28 Creatinine 1.0 mg/dL (0.8-1.5) 08/06/17 06:28 Est GFR ( Amer) > 60 08/06/17 06:28 Est GFR (Non-Af Amer) > 60 08/06/17 06:28 POC Glucose (mg/dL) 164 mg/dL (65-110) H 08/06/17 07:33 Random Glucose 143 mg/dL (70-110) H 08/06/17 06:28 Hemoglobin A1c 11.1 % (4.2-6.5) H 08/04/17 11:45 Calcium 9.2 mg/dL (8.4-10.5) 08/06/17 06:28 Phosphorus 4.1 mg/dL (2.5-4.5) 08/05/17 06:41 Magnesium 1.8 mg/dL (1.7-2.2) 08/05/17 06:41 Total Bilirubin 1.1 mg/dL (0.2-1.3) 08/06/17 06:28 AST 32 U/L (17-59) 08/06/17 06:28 ALT 45 U/L (7-56) 08/06/17 06:28 Alkaline Phosphatase 74 U/L (38-126) 08/06/17 06:28 Lactate Dehydrogenase 324 U/L (333-699) L 08/04/17 11:45 Total Creatine Kinase 164 U/L (35-230) 08/04/17 11:45 Troponin I < 0.01 ng/mL 08/04/17 23:45 Total Protein 7.1 g/dL (5.8-8.3) 08/06/17 06:28 Albumin 4.1 g/dL (3.0-4.8) 08/06/17 06:28 Globulin 3.0 gm/dL 08/06/17 06:28 Albumin/Globulin Ratio 1.4 (1.1-1.8) 08/06/17 06:28 Triglycerides 316 mg/dL (35-160) H 08/04/17 11:45 Cholesterol 132 mg/dL (130-200) 08/04/17 11:45 LDL Cholesterol Direct 73 mg/dL (0-129) 08/04/17 11:45 HDL Cholesterol 26 mg/dL (29-60) L 08/04/17 11:45 Lipase 233 U/L (23-300) 08/05/17 06:41 Urine Color Yellow (YELLOW) 08/04/17 16:00 Urine Appearance Sl cloudy (CLEAR) 08/04/17 16:00 Urine pH 6.5 (4.7-8.0) 08/04/17 16:00 Ur Specific [place] 1.010 (1.005-1.035) 08/04/17 16:00 Urine Protein 30 mg/dL (<30 mg/dL) H 08/04/17 16:00 Urine Glucose (UA) Negative mg/dL (NEGATIVE) 08/04/17 16:00 Urine Ketones Negative mg/dL (NEGATIVE) 08/04/17 16:00 Urine Blood Negative (NEGATIVE) 08/04/17 16:00 Urine Nitrate Negative (NEGATIVE) 08/04/17 16:00 Urine Bilirubin Negative (NEGATIVE) 08/04/17 16:00 Urine Urobilinogen 0.2 E.U./dL (<1 E.U./dL) 08/04/17 16:00 Ur Leukocyte Esterase Negative Minnie/uL (NEGATIVE) 08/04/17 16:00 Urine RBC Negative /hpf (0-2) 08/04/17 16:00 Urine WBC 2 - 5 /hpf (0-6) 08/04/17 16:00 Ur Epithelial Cells 1 - 3 /hpf (0-5) 08/04/17 16:00 Amorphous Sediment Moderate 08/04/17 16:00 Urine Bacteria Many (NEG) 08/04/17 16:00 - Hospital Course Hospital Course: Patient is a 62 year old male with a past medical history of hypertension, hyperlipidemia, renal insufficiency, psychosis, and marijuana/cocaie abuse who was admitted to the hospital from the inpatient psych floor at [facility] for evaluation and treatment of chest pain of about 30 minutes in length with no provoking event. With the use of physical examinations, lab work, and imaging the patient was ruled out for acute coronary syndrome and treated for the patients chronic medical conditions. During their hospital stay the patient was seen by psychiatry and cardiology whose recommendations were both appreciated and utilized in the care for this patient. During their hospital stay the patient underwent an echocardiogram and nuclear stress test, which were reviewed , appreciated, and utilized in the management of the patients clinical course. The echo showed an LVEF of greater than 50%, borderline left ventricular hypertrophy, mild tricuspid and mild mitral regurgitation. The nuclear scan found no significant areas of abnormalities. Patient was treated with antihypertensives, insulin, clozapine amongst other empiric/therapeutic medications. At this time the patient is medically stable for discharge. Patient understands and appreciates discharge plan. Patient instructed to follow up with primary care physicians and referrals within three to five days from discharge. Furthermore, the patient is instructed to take medications as prescribed and to return to emergency room for evaluation of intractable headache, fever, chills, dizziness, chest pain, shortness of breath, abdominal pain, nausea, vomiting, diarrhea, constipation, and urinary symptoms. This is a brief summary of the patients hospital course. Please see patient chart for full details. Discharge Exam - Additional Findings Additional findings: Head: Present: Atraumatic, Normocephalic Eyes: Present: PERRL, EOMI Mouth: Present: Moist Mucous Membranes Neck: Present: Normal Range of Motion Respiratory/Chest: Present: Clear to Auscultation, Good Air Exchange. No: Respiratory Distress, Accessory Muscle Use Cardiovascular: Present: Regular Rate and Rhythm, Normal S1, S2. No: Murmurs Abdomen: Present: Normal Bowel Sounds. No: Tenderness, Distention, Peritoneal Signs Back: Present: Normal Inspection Extremities: Present: Normal Inspection. No: Cyanosis, Edema Neurological: Present: Patient is awake, alert, responds to verbal stimuli, answers questions appropriately, follows commands, and moves extremities past midline Skin: Present: Warm, Dry, Normal Color. No: Rashes Discharge Plan - Follow Up Plan Condition: FAIR Disposition: TRANSF TO SNF Patient education suggested?: Yes Instructions: Chest Pain (ED), Schizoaffective Disorder (GEN) Additional Instructions: Patient Instructions: Take medications as prescribed. Follow up with PMD and referrals within three to five days from discharge. Return to the emergency room for evaluation of intractable headache, fever, chills, dizziness, chest pain, shortness of breath, abdominal pain, nausea, vomiting, diarrhea, constipation, and urinary symptoms. Referrals: Simone Salter MD [Primary Care Provider] - Emmanuel Zhou MD [Staff Provider] - <Jennifer Arana - Last Filed: 08/07/17 15:10> Provider - Provider Date of Admission: 08/04/17 12:22 Attending physician: Jennifer Arana MD Primary care physician: Simone Salter MD Hospital Course - Lab Results Lab Results: Micro Results 08/04/17 17:45 Blood Blood Culture - Preliminary NO GROWTH AFTER 48 HOURS 08/04/17 17:00 Blood Blood Culture - Preliminary NO GROWTH AFTER 48 HOURS 08/04/17 16:00 Urine Urine Culture - Final No Growth (<1,000 CFU/ML) Most Recent Lab Values WBC 9.6 10^3/ul (4.5-11.0) 08/06/17 06:28 RBC 6.09 10^6/uL (3.5-6.1) 08/06/17 06:28 Hgb 17.8 g/dL (14.0-18.0) 08/06/17 06:28 Hct 50.8 % (42.0-52.0) 08/06/17 06:28 MCV 83.4 fl (80.0-105.0) 08/06/17 06:28 MCH 29.2 pg (25.0-35.0) 08/06/17 06:28 MCHC 35.0 g/dl (31.0-37.0) 08/06/17 06:28 RDW 12.6 % (11.5-14.5) 08/06/17 06:28 Plt Count 188 10^3/uL (120.0-450.0) 08/06/17 06:28 MPV 10.8 fl (7.0-11.0) 08/06/17 06:28 Gran % 58.2 % (50.0-68.0) 08/06/17 06:28 Lymph % (Auto) 26.9 % (22.0-35.0) 08/06/17 06:28 [place] % (Auto) 10.3 % (1.0-6.0) H 08/06/17 06:28 Eos % (Auto) 4.1 % (1.5-5.0) 08/06/17 06:28 Baso % (Auto) 0.5 % (0.0-3.0) 08/06/17 06:28 Gran # 5.58 (1.4-6.5) 08/06/17 06:28 Lymph # 2.6 (1.2-3.4) 08/06/17 06:28 [place] # 1.0 (0.1-0.6) H 08/06/17 06:28 Eos # 0.4 (0.0-0.7) 08/06/17 06:28 Baso # 0.05 K/mm3 (0.0-2.0) 08/06/17 06:28 PT 11.4 Seconds (9.9-11.8) 08/04/17 11:45 INR 1.06 (0.93-1.08) 08/04/17 11:45 APTT 33.2 Seconds (23.7-30.8) H 08/04/17 11:45 Sodium 143 mmol/L (132-148) 08/06/17 06:28 Potassium 4.1 mmol/L (3.6-5.0) 08/06/17 06:28 Chloride 106 mmol/L (98-107) 08/06/17 06:28 Carbon Dioxide 25 mmol/L (21-33) 08/06/17 06:28 Anion Gap 16 (10-20) 08/06/17 06:28 BUN 22 mg/dL (7-21) H 08/06/17 06:28 Creatinine 1.0 mg/dL (0.8-1.5) 08/06/17 06:28 Est GFR ( Amer) > 60 08/06/17 06:28 Est GFR (Non-Af Amer) > 60 08/06/17 06:28 POC Glucose (mg/dL) 140 mg/dL (65-110) H 08/07/17 11:18 Random Glucose 143 mg/dL (70-110) H 08/06/17 06:28 Hemoglobin A1c 11.1 % (4.2-6.5) H 08/04/17 11:45 Calcium 9.2 mg/dL (8.4-10.5) 08/06/17 06:28 Phosphorus 4.1 mg/dL (2.5-4.5) 08/05/17 06:41 Magnesium 1.8 mg/dL (1.7-2.2) 08/05/17 06:41 Total Bilirubin 1.1 mg/dL (0.2-1.3) 08/06/17 06:28 AST 32 U/L (17-59) 08/06/17 06:28 ALT 45 U/L (7-56) 08/06/17 06:28 Alkaline Phosphatase 74 U/L (38-126) 08/06/17 06:28 Lactate Dehydrogenase 324 U/L (333-699) L 08/04/17 11:45 Total Creatine Kinase 164 U/L (35-230) 08/04/17 11:45 Troponin I < 0.01 ng/mL 08/04/17 23:45 Total Protein 7.1 g/dL (5.8-8.3) 08/06/17 06:28 Albumin 4.1 g/dL (3.0-4.8) 08/06/17 06:28 Globulin 3.0 gm/dL 08/06/17 06:28 Albumin/Globulin Ratio 1.4 (1.1-1.8) 08/06/17 06:28 Triglycerides 316 mg/dL (35-160) H 08/04/17 11:45 Cholesterol 132 mg/dL (130-200) 08/04/17 11:45 LDL Cholesterol Direct 73 mg/dL (0-129) 08/04/17 11:45 HDL Cholesterol 26 mg/dL (29-60) L 08/04/17 11:45 Lipase 233 U/L (23-300) 08/05/17 06:41 Urine Color Yellow (YELLOW) 08/04/17 16:00 Urine Appearance Sl cloudy (CLEAR) 08/04/17 16:00 Urine pH 6.5 (4.7-8.0) 08/04/17 16:00 Ur Specific [place] 1.010 (1.005-1.035) 08/04/17 16:00 Urine Protein 30 mg/dL (<30 mg/dL) H 08/04/17 16:00 Urine Glucose (UA) Negative mg/dL (NEGATIVE) 08/04/17 16:00 Urine Ketones Negative mg/dL (NEGATIVE) 08/04/17 16:00 Urine Blood Negative (NEGATIVE) 08/04/17 16:00 Urine Nitrate Negative (NEGATIVE) 08/04/17 16:00 Urine Bilirubin Negative (NEGATIVE) 08/04/17 16:00 Urine Urobilinogen 0.2 E.U./dL (<1 E.U./dL) 08/04/17 16:00 Ur Leukocyte Esterase Negative Minnie/uL (NEGATIVE) 08/04/17 16:00 Urine RBC Negative /hpf (0-2) 08/04/17 16:00 Urine WBC 2 - 5 /hpf (0-6) 08/04/17 16:00 Ur Epithelial Cells 1 - 3 /hpf (0-5) 08/04/17 16:00 Amorphous Sediment Moderate 08/04/17 16:00 Urine Bacteria Many (NEG) 08/04/17 16:00 Attending/Attestation - Attestation I have personally seen and examined this patient.: Yes I have fully participated in the care of the patient.: Yes I have reviewed all pertinent clinical information, including history, physical exam and plan: Yes Notes (Text): 08/07/17 15:08 attending note; Patient seen and examined with the resident. Patient is a 62 year old male with past medical history of HTN, dyslipidemia, IDDM, psychosis, cigar use, marijuana use, CHF due to systolic dysfunction (EF~ 45-50%) who was transferred from psych floor for evaluation of chest pain. EKG does not show any ST or T wave changes. cardiac enzymes negative. case discussed with licensed loan officer assistant in detail. Status post stress test today. DM/HTN controlled. continue meds. Psychiatric evaluation appreciated. Continue clozapine and risperidone. transfer to psych floor today. Diagnosis; Chest pain Diabetes Hypertension Psychosis Cardiomyopathy
[2017-08-06 18:13] VITALS: BP 114/66; PULSE 92; RESP 22; TEMP 98.6
--- NOTE | 2017-08-06 21:05 | CARD ---
APPROVED REPORT Protocol: DONNA Test Type: Lexiscan Sestamibi Stress Test Attending Physician: Dr. Emmanuel Zhou Referring Physician: Dr. Adrian Falcon Test Indications: Chest Pain. Height:5 ft 8 in Weight:189lbs Medications: Norvasc,Aspirin,Lipitor, Clozaril,Heparin,Insulin, Protonix Medical History: 62 y/o male with chest pain. Target HR: 159 bpm Resting ECG: RSR, RBBB Resting Heart Rate: 86 bpm Resting Blood Pressure: 120/90mmHg Submaximum (85%): 135 bpm PROCEDURE Pharmacologic stress testing was performed using 0.4mg per 5ml of regadenoson given intravenously over 7-10 seconds. POST EXERCISE Reason for Termination: Protocol completed Target HR: No Max HR: 105 bpm 68% of Maximum Predicted HR: 159 bpm Exercise duration: 05:11 min:sec, 0 Stage Exercise capacity: 1.0METs Max Blood Pressure: 126/80mmHg Blood Pressure response to exercise: normal resting BP - appropriate response Heart Rate response to exercise: appropriate Chest Pain: Yes, Positive Angina index: 0 Arrhythmia: No, None ST Change: Yes, RBBB with ST changes at rest. No change Deviation: 0 mm TEST SUMMARY [id number]/90.0. INFUSIONDOSE 101:000.00.01.0101/.1.00:29 Arabella inj over 10 sec, Fernando inj at 25 sec. INFUSIONDOSE 201:[id number]/80.0. INFUSIONDOSE 301:[id number]/80.0. INFUSIONDOSE 401:000.00.01.0104/.0. INFUSIONDOSE 501:[id number]/80.0. INFUSIONDOSE 600:[id number]/80.0. INTERPRETATION Stress EKG Conclusion: Lexiscan nuclear stress test which was positive for chest pain without additional ST depressions. No arrhythmia. Nuclear scans pending. Signed by Emmanuel Zhou Electronically Approved: 08/06/2017 09:36:04 EXAM: Myocardial Perfusion STRESS/REST Stress Test Type: Pharmacologic Imaging Protocol Rest Spect myocardial perfusion imaging was performed in supine position 65 minutes following the injection of 30.9 mCi of At peak stress, the patient was injected intravenously with 10.9mCi of Tc-99 tetrofosmin after an infusion time of 0 minutes and 10 seconds. Gated Stress Spect was performed 65 minutes after intravenous Tc-99 Myoview injection. The images were gated to evaluate regional wall motion and calculate ventricular ejection fraction.Images were reconstructed using backfilter projection method in short horizontal and verticle long axis. Spect slices were generated. LV Perfusion The quality of the study is good. The left ventricle is moderately enlarged in size. The right ventricle is unremarkable. The lung uptake is normal. The distribution of tracer reveals mildly and diffusely decreased perfusion in the inferior wall on the stress study. The remainder of the LV myocardium is unremarkable. The rest myocardial perfusion study shows no significant change. Wall Motion Wall motion study shows jmild diffuse hypokinesis of the left ventricle. LVEF = 45%. Conclusion 1. Probably negative SPECT myocardial perfusion study. 2. Fixed, inferior defect is most likely due to diaphragmatic attenuation. 3. Mild LV dysfnction with diffuse hypokinesis. 4. Early cardiomyopathy cannot be ruled out.
== END 2017-08-06 19:47 ==
LOC: ED 11:22 → ERH 12:22 → UNDOADMIN 12:32 → ERH 12:32 → 2RNO 08-05 01:17
PROVIDERS: ADMIT Hospitalist; ATTEND Internal Medicine
DX: R07.9 Chest pain, unspecified (principal); F25.9 Schizoaffective disorder, unspecified; I11.0 Hypertensive heart disease with heart failure; I50.20 Unspecified systolic (congestive) heart failure; E78.5 Hyperlipidemia, unspecified; F17.210 Nicotine dependence, cigarettes, uncomplicated; D72.829 Elevated white blood cell count, unspecified; I25.10 Atherosclerotic heart disease of native coronary artery without angina pectoris; I08.1 Rheumatic disorders of both mitral and tricuspid valves; I45.10 Unspecified right bundle-branch block; E11.9 Type 2 diabetes mellitus without complications; F14.10 Cocaine abuse, uncomplicated; F12.10 Cannabis abuse, uncomplicated; Z79.4 Long term (current) use of insulin; Z88.0 Allergy status to penicillin
CPT/HCPCS: 36415; 71010; 78452; 80053; 80061; 81001; 82550; 82948; 83036; 83615; 83690; 83735; 84100; 84484; 85025; 85610; 85730; 87040; 87086; 93005; 93017; 93306; 96372; 99285; A9502; G0378; J1644; J7040

== ENCOUNTER 2017-08-06 19:50 | Inpatient (IN) | payer MEDICARE ==
[2017-08-06] MEDS ORDERED: Magnesium Hydroxide Susp 30 ml UD PO PRN (21:04)
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
--- NOTE | 2017-08-06 21:43 | PCM.BM ---
Treatment Plan Problems - Problems identified on initial assessmt Problem 1 Date Initiated: 08/06/17 Time Initiated: 21:00 Assessment reference: HP Status: Active Treatment assets and liabiliti Patient Assests: cooperative, ADL independent, cognitively intact - Milieu Protocol Milieu Narrative: Continue Clozapine 200 mg h.s. Add increasing doses of Risperidone Discharge/Continuing Care - Treatment Team Participation Patient/Family/SO Statement: Continue Clozapine 200 mg h.s. Add increasing doses of Risperidone
[2017-08-06] MEDS: Insulin Lispro (humaLOG) MEDIUM Coverage SC SCH (21:57)
[2017-08-06] MEDS: Insulin Detemir 100 units/ml Vial (Levemir) SC SCH (21:59)
--- NOTE | 2017-08-06 22:15 | PCM.BM ---
<Abby Glynn - Last Filed: 08/06/17 22:16> Treatment Plan Problems - Problems identified on initial assessmt DEPRESSION Date Initiated: 08/06/17 Time Initiated: 20:00 Assessment reference: NA DELUSIONS Date Initiated: 08/06/17 Time Initiated: 20:00 Assessment reference: HP, NA Status: Active Treatment assets and liabiliti Patient Assests: adapts well, cooperative, educated, self-reliant, ADL independent, negotiates basic needs, cognitively intact, good interpersonal skills Patient Liabilities: financial problems, poor support system, relationship conflicts, medical problems - Milieu Protocol Maintain good personal hygiene: daily Encourage regular showers, every shift Remind patient to perform daily oral care, every shift Assist patient to perform ADL's Maintain personal safety: every shift Educate patient to report safety concerns to staff, every shift Monitor environment for contraband/sharps Medication safety: Monitor for expected outcome, potential side effects: every shift, Assess barriers to learning: every shift, Assess readiness for medication education: every shift Milieu Narrative: Continue Clozapine 200 mg h.s. Add increasing doses of Risperidone Family Contact Family involvement: Family/SO is involved Family contact: Patient agrees to contact, Family meeting planned to review treatment plan Discharge/Continuing Care - Education Needs Education Needs: Patient Medication, Patient Diagnosis/Disease Process, Patient Coping Skills, Patient Anger Management skills, Patient Activities of Daily Living, Patient Nutrition, Patient Uses of Medical Equipment, Patient Health Practices/Safety, Patient Personal Hygiene/Grooming, Patient Aftercare Safety Plan - Discharge Discharge Criteria: Tolerates medication w/o severe side effects, Free of paranoid thoughts, Free of agitation, Normal sleep pattern, Ability to care for self, Reduction of target symptoms - Treatment Team Participation Patient/Family/SO Statement: Continue Clozapine 200 mg h.s. Add increasing doses of Risperidone <Jackie Moses - Last Filed: 08/07/17 14:41> Treatment Plan Problems - Problems identified on initial assessmt DEPRESSION Date Initiated: 08/06/17 Time Initiated: 20:00 Assessment reference: NA Status: Active DELUSIONS Date Initiated: 08/06/17 Time Initiated: 20:00 Assessment reference: HP, NA Status: Active Problem 1 Date Initiated: 08/06/17 Time Initiated: 21:00 Assessment reference: HP Status: Active D Assessment reference: NA
[2017-08-07] MEDS: Pantoprazole 20 mg EC Tab PO SCH (06:29)
[2017-08-07] MEDS: Insulin Lispro (humaLOG) MEDIUM Coverage SC SCH ×4 (08:13→22:32)
--- NOTE | 2017-08-07 08:40 | HP ---
PSYCHIATRIC EVALUATION CHIEF COMPLAINT: Extreme nervousness. HISTORY OF PRESENT ILLNESS: The patient is a 62-year-old male who was just admitted to the psychiatric unit. He had been originally admitted to the psychiatric unit on 07/31/2017. He had to be discharged and transferred to the ER and medical telemetry unit after experiencing severe retrosternal chest pain with radiation to his right arm and weakness. The patient was evaluated on the medical surgical service with a complete cardiac workup including echocardiogram and cardiac monitoring, stress test, enzymes and was found to have no acute cardiac etiology for his chest pain. The patient was admitted to the psychiatric unit due to increasing symptoms in recent weeks and months of extreme psychosis marked by severe thought disorder with tangentiality, thought blocking and generally disorganized thinking. The patient has a history of schizoaffective disorder and he was treated by me as an outpatient with clozapine 400 mg a day without relief. I have known this patient since 1979, since seeing him on a regular basis. The patient has also been very delusional and paranoid with impaired judgement. He has been convinced that his brother had hired people to break into his apartment for which there is no rational evidence of such and still has possessions. The patient also has been had very poor judgement and making very poor decisions. He has given money away to strange woman. He also loaned a woman with substance abuse his car several months ago and she never returned it. He has got multiple citations due to her going through the [employer] pass without paying and getting many parking tickets. In the recent past, the patient has also had intermittent auditory hallucinations. PAST MEDICAL HISTORY: Includes insulin-dependent diabetes mellitus, hypertension, and hyperlipidemia. The patient had cocaine and marijuana abuse in the past, none recently. PERSONAL HISTORY: He is unmarried. He lives alone. He has a lady friend who has major psychiatric problems. He lives with her family. The patient has a brother. His parents are . The patient has a maternal uncle with bipolar disorder. His father had alcoholism and from consequences of that. The patient has been on social security disability for many years for psychiatric problems. 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 The patient has had no suicide attempts, but he has had multiple psychiatric hospitalizations, at least 3 in the past 3 years. REVIEW OF SYMPTOMS: He, currently at this time, having no chest pain or dizziness or lightheadedness. Currently, no shortness of breath, no abdominal pain, no headaches, no vertigo. He has no flank pain or back pain. CURRENT MEDICATIONS: Clozapine 200 mg at bedtime. His Risperdal which was increased today is 1 mg b.i.d. He is on Levemir 15 units subcu at bedtime. Humalog insulin protocol. He is on 81 mg of aspirin per day. He is receiving Lipitor 20 mg daily, Protonix 20 mg daily, Ecotrin 81 mg daily, and Norvasc 5 mg daily. PHYSICAL EXAMINATION: VITAL SIGNS: Blood pressure was 114/66, pulse is 92, he is afebrile, respirations 20 per minute. HEENT: Head is normocephalic. Eyes, ears, nose and throat; EOMs full. NECK: Supple. HEART: Regular rhythm. LUNGS: Clear. ABDOMEN: Soft, nontender. EXTREMITIES: No clubbing or edema. He is slightly obese. No CVA tenderness. NEUROLOGIC: No focal neurological findings or pathological reflexes. Cranial nerves II-XII intact. No dyskinetic movements of tongue. Shoulder shrug is normal. Gait is slow, but generally steady. PSYCHIATRIC: His mental status; he is awake, he is alert. He has poor eye contact at times. His affect is flat, constricted. At times, he gazes off in the middle of the conversation. At times, his thought process is loose. He has a delusion that his brother is conspiring with people to break into his home. There is no basis of fact for this. He is denying hallucinations now. His judgement and insight are quite impaired with impaired reality awareness. The patient gave me permission to speak to his brother, which I did yesterday. Brother agrees to become power of finance attorney if the patient will sign permission for that as his financial affairs are in total disarray. The patient is able to get informed consent. LABORATORY DATA: Most recent laboratory data; he has a normal CBC. He has a most recent random glucose of 353. His electrolytes; estimated GFR, lipid functions are within normal range. The patient had urinalysis which was slightly cloudy with 30 mg/dL of protein. He had an echocardiogram yesterday which revealed a mild tricuspid and mitral regurgitation. He had a slight left ventricular hypertrophy. Ejection fraction greater than 50%. The patient had a chest x-ray which was normal. He had an electrocardiogram, showed right bundle-branch block. He had a myocardial stress test which was a negative study. The patient had a mild left ventricular dysfunction with diffuse hypokinesis. IMPRESSION: The patient has schizoaffective disorder, bipolar type, severe with severe paranoia and paranoid delusions. He also has history of recent noncardiac chest pain. He has insulin-dependent diabetes mellitus, hyperlipidemia, history of hypertension, history of appendectomy, history of vasectomy, past history of cocaine and marijuana abuse, and poor compliance. PLAN: We will continue to keep on close observation q. 15 minutes. We will continue clozapine 200 mg at bedtime. We will gradually increase Risperdal dosage, currently 1 mg b.i.d. We will discuss with treatment team and we will monitor closely his mental status. Simone Salter MD PADMINI
--- NOTE | 2017-08-07 11:16 | CP.PCM.CON ---
<Juan Ramon Finn - Last Filed: 08/07/17 13:30> History of Present Illness - History of Present Illness History of Present Illness: Subjective: Patient is a 62 year old male with a past medical history of hypertension, hyperlipidemia, renal insufficiency, psychosis, and marijuana/cocaine abuse who was admitted to the hospital from the inpatient psych floor at [facility] for evaluation and treatment of chest pain of about 30 minutes in length with no provoking event. With the use of physical examinations, lab work, and imaging the patient was ruled out for acute coronary syndrome and treated for the patients chronic medical conditions. During their hospital stay the patient was seen by psychiatry and cardiology whose recommendations were both appreciated and utilized in the care for this patient. During their hospital stay the patient underwent an echocardiogram and nuclear stress test, which were reviewed , appreciated, and utilized in the management of the patients clinical course. The echo showed an LVEF of greater than 50%, borderline left ventricular hypertrophy, mild tricuspid and mild mitral regurgitation. The nuclear scan found no significant areas of abnormalities. Patient was treated with antihypertensives, insulin, clozapine amongst other empiric/therapeutic medications. Patient was medically stable for discharge to psychiatry unit. Patient seen and examined at bedside. Resting comfortably in bed. No acute overnight events. Offers no new complaints at this time. Denies f/c/cp/sob/ abdominal pain/n/v/d/c/urinary sxs. PMHx: DM, HTN, HL, schizoaffective disorder, renal insufficency, psychosis PSHX: right inguinal hernia repair, appendectomy, vastectomy Allergies: penicllin- anaphylaxis Family Hx: "cardiac disease" Social Hx: social ETOH use, former tobacco user 1.5 ppd for 10 years, quit 30 years ago, former cocaine use x 1, former synthetic marijauna user Physical Examination: Head: Present: Atraumatic, Normocephalic Eyes: Present: PERRL, EOMI Mouth: Present: Moist Mucous Membranes Neck: Present: Normal Range of Motion Respiratory/Chest: Present: Clear to Auscultation, Good Air Exchange. No: Respiratory Distress, Accessory Muscle Use Cardiovascular: Present: Regular Rate and Rhythm, Normal S1, S2. No: Murmurs Abdomen: Present: Normal Bowel Sounds. No: Tenderness, Distention, Peritoneal Signs Back: Present: Normal Inspection Extremities: Present: Normal Inspection. No: Cyanosis, Edema Neurological: Present: Patient is awake, alert, responds to verbal stimuli, answers questions appropriately, follows commands, and moves extremities past midline Skin: Present: Warm, Dry, Normal Color. No: Rashes Assessment and Plan: History of Diabetes - continue with humalog, levemir - accuchecks ACHS - ISS - c/w metformin and glimperide - follow BG trend Hx of Hypertension - BPs trended, reviewed, and appreciated - continue home amlodipine Hx of Hyperlipidemia - continue with home statin Shizoaffective Disorder - as per psych Prophylaxis - pantoprazole - patient is ambulating without any overt difficulty Medicine team will sign off at this time. Please reconsult if needed. Thank you for the opportunity to participate in the care of this patient. Patient seen, case discussed with, and plan approved by attending physician, Dr. Arana. Past Patient History - Infectious Disease Hx of Infectious Diseases: None - Tetanus Immunizations Tetanus Immunization: Unknown - Past Social History Smoking Status: Current Some Days Smoker - CARDIAC Hx Cardiac Disorders: Yes Hx Hypertension: Yes - PULMONARY Hx Respiratory Disorders: No - NEUROLOGICAL Hx Neurological Disorder: No - HEENT Hx HEENT Problems: No - RENAL Hx Chronic Kidney Disease: No - ENDOCRINE/METABOLIC Hx Diabetes Mellitus Type 1: Yes - HEMATOLOGICAL/ONCOLOGICAL Hx Blood Disorders: No Hx Cancer: No - INTEGUMENTARY Hx Dermatological Problems: No - MUSCULOSKELETAL/RHEUMATOLOGICAL Hx Falls: No - GASTROINTESTINAL Hx Gastrointestinal Disorders: No - GENITOURINARY/GYNECOLOGICAL Hx Sexually Transmitted Disorders: No - PSYCHIATRIC Hx Anxiety: Yes Hx Bipolar Disorder: Yes Hx Depression: Yes Hx Schizophrenia: Yes Hx Substance Use: Yes - SURGICAL HISTORY Hx Appendectomy: Yes - ANESTHESIA Hx Anesthesia: Yes Hx Anesthesia Reactions: No Hx Malignant Hyperthermia: No Meds Allergies/Adverse Reactions: Allergies Allergy/AdvReac Type Severity Reaction Status Date / Time Penicillins Allergy SHORTNESS Verified 08/07/17 00:25 OF BREATH - Medications Medications: Current Medications Acetaminophen (Tylenol 325mg Tab) 650 mg PO Q4H PRN PRN Reason: Pain, Mild (1-3) Amlodipine Besylate (Norvasc) 5 mg PO DAILY [facility] Last Admin: 08/07/17 08:14 Dose: 5 mg Aspirin (Ecotrin) 81 mg PO DAILY [facility] Last Admin: 08/07/17 08:14 Dose: 81 mg Atorvastatin Calcium (Lipitor) 20 mg PO DIN [facility] Clozapine (Clozaril) 200 mg PO HS [facility] PRN Reason: Protocol Last Admin: 08/06/17 21:51 Dose: 200 mg Glimepiride (Amaryl) 4 mg PO 0800,1700 [facility] Last Admin: 08/07/17 08:15 Dose: 4 mg Insulin Detemir (Levemir) 15 unit SC HS [facility] Last Admin: 08/06/17 21:59 Dose: 15 unit Insulin Human Lispro (Humalog Med) [address] [facility] PRN Reason: Protocol Last Admin: 08/07/17 08:13 Dose: 5 units Magnesium Hydroxide (Milk Of Magnesia) 30 ml PO DAILY PRN PRN Reason: Constipation Metformin HCl (Glucophage) 850 mg PO BID [facility] Last Admin: 08/07/17 08:15 Dose: 850 mg Pantoprazole Sodium (Protonix Ec Tab) 20 mg PO 0600 [facility] Last Admin: 08/07/17 06:29 Dose: 20 mg Risperidone (Risperdal Tab) 1 mg PO BID [facility] PRN Reason: Protocol Last Admin: 08/07/17 08:15 Dose: 1 mg Results - Vital Signs Recent Vital Signs: Last Vital Signs Temp 97.5 F L 08/07/17 07:06 Pulse 100 H 08/07/17 08:14 Resp 18 08/07/17 07:06 BP 137/92 H 08/07/17 08:14 Pulse Ox <Jennifer Arana - Last Filed: 08/07/17 15:24> Meds - Medications Medications: Current Medications Acetaminophen (Tylenol 325mg Tab) 650 mg PO Q4H PRN PRN Reason: Pain, Mild (1-3) Amlodipine Besylate (Norvasc) 5 mg PO DAILY [facility] Last Admin: 08/07/17 08:14 Dose: 5 mg Aspirin (Ecotrin) 81 mg PO DAILY [facility] Last Admin: 08/07/17 08:14 Dose: 81 mg Atorvastatin Calcium (Lipitor) 20 mg PO DIN [facility] Clozapine (Clozaril) 200 mg PO [facility] PRN Reason: Protocol Last Admin: 08/06/17 21:51 Dose: 200 mg Glimepiride (Amaryl) 4 mg PO 0800,1700 [facility] Last Admin: 08/07/17 08:15 Dose: 4 mg Insulin Detemir (Levemir) 15 unit SC [facility] Last Admin: 08/06/17 21:59 Dose: 15 unit Insulin Human Lispro (Humalog Med) 0 units SC [facility] PRN Reason: Protocol Last Admin: 08/07/17 11:30 Dose: Not Given Magnesium Hydroxide (Milk Of Magnesia) 30 ml PO DAILY PRN PRN Reason: Constipation Metformin HCl (Glucophage) 850 mg PO BID [facility] Last Admin: 08/07/17 08:15 Dose: 850 mg Pantoprazole Sodium (Protonix Ec Tab) 20 mg PO 0600 [facility] Last Admin: 08/07/17 06:29 Dose: 20 mg Risperidone (Risperdal Tab) 2 mg PO 1000,1800 [facility] Results - Vital Signs Recent Vital Signs: Last Vital Signs Temp 97.5 F L 08/07/17 07:06 Pulse 100 H 08/07/17 08:14 Resp 18 08/07/17 07:06 BP 137/92 H 08/07/17 08:14 Pulse Ox Attending/Attestation - Attestation I have personally seen and examined this patient.: Yes I have fully participated in the care of the patient.: Yes I have reviewed all pertinent clinical information: Yes Notes (Text): 08/07/17 15:15 attending note; Patient seen and examined with the resident in Psych floor. Patient is a 62 year old male with past medical history of HTN, dyslipidemia, IDDM, psychosis, cigar use, marijuana use, CHF due to systolic dysfunction (EF~ 45-50%) who was transferred to psych floor yesterday from medical side after the evaluation of chest pain. EKG does not show any ST or T wave changes. cardiac enzymes negative. Stress test showed probably negative study with early cardiomyopathy. Ejection fraction is 45%. Follow-up with cardiology. Norvasc discontinued. Started on Coreg and lisinopril. DM; continue Amaryl and insulin. delisional disorder;Continue clozapine and risperidone. Patient is medically stable. Please reconsult as needed. Upon discharge the patient will follow-up with PMD . 08/07/17 15:24
--- NOTE | 2017-08-07 14:11 | PCM.PYCHPN ---
Psychiatric Progress Note - Psychiatric Progress Note Patient seen today, length of contact: 30 Patient Chief Complaint: I don"t know what's wrong with me. Medical Problems: IDDM, Htn BS 140 Diagnostic Results: NONE Medication Change: Yes Medical Record Reviewed: Yes Mental Status Examination - Cognitive Function Orientation: Person, Place, Situation, Time Memory: Intact Attention: Poor Concentration: Poor Association: Loose Fund of Knowledge: WNL Decription of patient's judgement and insights: Poor insight due to delusions and paranoia - Mood Mood: Anxious Additional comments: Innappropriatel euphoric at [facility] - Speech Speech: Loud - Formal Thought Process Formal Thought Process: Hallucinations, Delusions, Paranoia, Loosening of associations, Flight of ideas, Circumstantial (Staest sees colors chanhing on river and ceiling) Psychotic Thoughts and Behaviors: Delusional about brother hiring people to isabel and assault him. - Suicidal Ideation Suicidal Ideation: No - Homicidal Ideation Homicidal Ideation: No Goal/Treatment Plan - Goal/Treatment Plan Need for Continued Stay: Remain at risks for inpatient hospitalization, Discharge may exacerbated symptoms Progress Toward Problem(s) and Goals/Treatment Plan: Continue Clozapine 200 mg h.s. Add increasing doses of Risperidone Estimated Date of D/C: 08/14/17 If changed, why: Increasing antipsychotic medication . Risperidal 2 mg BID - Smoking Cessation Smoking Cessation Initiated: No Reason for not providing: NS
[2017-08-07] MEDS: Insulin Detemir 100 units/ml Vial (Levemir) SC SCH (23:14)
[2017-08-08] MEDS: Pantoprazole 20 mg EC Tab PO SCH (06:31)
[2017-08-08 07:37] LABS: BASO # 0.03 K/mm3 (0.0-2.0); BASO % 0.2 % (0.0-3.0); EOS # 0.4 (0.0-0.7); GRAN # 8.82 (1.4-6.5); GRAN % 69.6 % (50.0-68.0); HEMATOCRIT 51.1 % (42.0-52.0); LYMPH % 15.4 % (22.0-35.0); MEAN CELL VOLUME 83.4 fl (80.0-105.0); MEAN CORPUSCULAR HEMOGLOBIN 29.7 pg (25.0-35.0); MEAN CORPUSCULAR HGB CONC 35.6 g/dl (31.0-37.0); MEAN PLATELET VOLUME 11.2 fl (7.0-11.0); MONO # 1.5 (0.1-0.6); MONO % 11.8 % (1.0-6.0); RED CELL DISTRIBUTION WIDTH 12.6 % (11.5-14.5); WHITE BLOOD COUNT 12.7 10^3/ul (4.5-11.0)
[2017-08-08 07:46] LABS: ALB/GLOB RATIO 1.6 (1.1-1.8); ALKALINE PHOSPHATASE 80 U/L (38-126); ALT/SGPT 64 U/L (7-56); AST/SGOT 35 U/L (17-59); BILIRUBIN,TOTAL 0.8 mg/dL (0.2-1.3); BLOOD UREA NITROGEN 25 mg/dL (7-21); CALCIUM 9.5 mg/dL (8.4-10.5); CARBON DIOXIDE 27 mmol/L (21-33); CHLORIDE 104 mmol/L (98-107); GFR AFRICAN-AMERICAN > 60; GLUCOSE,RANDOM 256 mg/dL (70-110); POTASSIUM 4.7 mmol/L (3.6-5.0); SODIUM 143 mmol/L (132-148); TOTAL PROTEIN 7.4 g/dL (5.8-8.3)
--- NOTE | 2017-08-08 08:42 | PN ---
SUBJECTIVE: The patient is a 62-year-old male currently being treated on Psychiatric Unit for progressive onset of severe psychosis related to schizoaffective disorder. The patient continues to be highly delusional with instability of mood. At times, euphoric and out of touch with reality as sexually preoccupied. His judgment and insight are poor. Gets very euphoric when talks about buying [employer] stocks. The patient is very paranoid, his brother is trying to hire people to assault him and isabel his house . The patient is oriented x3. His thought processes is still tangential, circumstantial, and guarded and fake. He has some episodes of thought blocking today. He had some visual hallucinations saying colors in the river and ceiling are changing from one color to another. I spoke today at length with the patient's brother with the patient's permission. We discussed patient's problematic financial situation and poor, overcharging credit cards, not paying his bills and overdrawing his bank account. PHYSICAL EXAMINATION: VITAL SIGNS: Blood pressure is 137/92, pulse 100, afebrile, respirations 18 per minute. CURRENT LABORATORY DATA: Blood sugar today is 140, no other new laboratory data reported. CURRENT MEDICATIONS: Include Amaryl 4 mg twice a day, Clozapine 200 mg h.s., Ecotrin 81 mg daily, Glucophage 850 b.i.d., Humalog insulin protocol, Levemir 15 units subcu h.s., Lipitor 20 mg at dinner, Norvasc 5 mg daily, Risperdal 1 mg b.i.d. ASSESSMENT: I spoke with nursing staff about patient's schizoaffective disorder, acute severe bipolar type, the patient has severe paranoid delusions, insulin-dependant diabetes mellitus, hypertension, noncompliance. PLAN: We will increase Risperdal 2 mg b.i.d. Continue Clozapine 200 mg at bedtime, continue on close observation q. 15 minutes. We will discuss with the patient in the future about giving power of office [employer] consultant to brother. Simone Salter MD PADMINI
[2017-08-08] MEDS: Insulin Lispro (humaLOG) MEDIUM Coverage SC SCH ×4 (09:05→21:24)
--- NOTE | 2017-08-08 19:35 | PN ---
DATE: PSYCHIATRIC PROGRESS NOTE SUBJECTIVE: Patient is a 62-year-old male who was admitted to the Psychiatric Unit due to deteriorating mental status, resulting in worsening psychosis, symptoms of severe paranoia, thought disorder, loosening of association. Patient's mental status today reveals that mood is very labile, at times he seems withdrawing and at other times he is inappropriately euphoric. He is sexually preoccupied. He has visual distortions or hallucinations in lights changing color on the wall and the ceiling. Patient has periods of thought blocking when he stares off into the distance and questions have to be repeated. Patient is still paranoid as per his brother; however, he is willing ironically to allow the brother to sign a power of sales representative education courses document later today. Patient is oriented x3. He does not appear to be having any adverse effects from psychotropic medication. Case was discussed with nursing staff. PHYSICAL EXAMINATION: VITAL SIGNS: Blood pressure is 148/85, respirations 18 per minute, pulse 84. REVIEW OF SYSTEMS: Noncontributory. CURRENT MEDICATIONS: Include Norvasc 5 mg daily. He is on Humalog and Levemir insulin. He is receiving metformin 850 mg b.i.d., Amaryl 4 mg b.i.d. He is receiving clozapine 200 mg at bedtime and Risperdal 1 mg b.i.d. The Risperdal has been increased to 2 mg b.i.d. IMPRESSION: Schizoaffective disorder, bipolar type, severe with severe paranoia. He has insulin-dependent diabetes mellitus, hypertension, hyperlipidemia. PLAN: Risperdal increased to 2 mg b.i.d. Continue clozapine 200 mg at bedtime. Continue under close observation q. 15 minutes. Simone Salter MD
[2017-08-08] MEDS: Insulin Detemir 100 units/ml Vial (Levemir) SC SCH (21:36)
[2017-08-09] MEDS: Pantoprazole 20 mg EC Tab PO SCH (06:36)
[2017-08-09 07:27] LABS: BASO # 0.05 K/mm3 (0.0-2.0); BASO % 0.5 % (0.0-3.0); EOS # 0.6 (0.0-0.7); EOS % 5.1 % (1.5-5.0); GRAN # 6.45 (1.4-6.5); GRAN % 58.2 % (50.0-68.0); HEMATOCRIT 48.7 % (42.0-52.0); LYMPH # 2.6 (1.2-3.4); MEAN CELL VOLUME 82.5 fl (80.0-105.0); MEAN CORPUSCULAR HEMOGLOBIN 29.5 pg (25.0-35.0); MEAN CORPUSCULAR HGB CONC 35.7 g/dl (31.0-37.0); MEAN PLATELET VOLUME 10.4 fl (7.0-11.0); MONO # 1.5 (0.1-0.6); MONO % 13.2 % (1.0-6.0); RED CELL DISTRIBUTION WIDTH 12.6 % (11.5-14.5); WHITE BLOOD COUNT 11.1 10^3/ul (4.5-11.0)
[2017-08-09] MEDS: Insulin Lispro (humaLOG) MEDIUM Coverage SC SCH ×4 (07:30→21:37)
[2017-08-09 07:42] LABS: ALB/GLOB RATIO 1.5 (1.1-1.8); ALKALINE PHOSPHATASE 69 U/L (38-126); ALT/SGPT 56 U/L (7-56); AST/SGOT 28 U/L (17-59); BLOOD UREA NITROGEN 25 mg/dL (7-21); CARBON DIOXIDE 25 mmol/L (21-33); CHLORIDE 106 mmol/L (98-107); GFR AFRICAN-AMERICAN > 60; GLUCOSE,RANDOM 131 mg/dL (70-110); POTASSIUM 3.9 mmol/L (3.6-5.0); SODIUM 142 mmol/L (132-148); TOTAL PROTEIN 6.6 g/dL (5.8-8.3)
[2017-08-09] MEDS: Aspirin 325 mg EC Tablets PO SCH (10:11)
--- NOTE | 2017-08-09 11:59 | CP.PCM.PN ---
<Juan Ramon Finn - Last Filed: 08/09/17 11:37> Subjective - Date & Time of Evaluation Date of Evaluation: 08/09/17 Time of Evaluation: 07:30 - Subjective Subjective: Subjective: Patient seen and examined at bedside. Resting comfortably in bed. No acute overnight events. Elevated HR noted. Patient states he experienced 9 loose nonbloody bowel movements yesterday and one this morning. Denies fever, chills, chest pain, shortness of breath, abdominal pain, nausea, vomiting, diarrhea, constipation, and urinary symptoms. Physical Examination: Head: Present: Atraumatic, Normocephalic Eyes: Present: EOMI Mouth: Present: Moist Mucous Membranes Neck: Present: Normal Range of Motion Respiratory/Chest: Present: Clear to Auscultation, Good Air Exchange. No: Respiratory Distress, Accessory Muscle Use Cardiovascular: Present: Regular Rate and Rhythm, Normal S1, S2. No: Murmurs Abdomen: Present: Normal Bowel Sounds. No: Tenderness, Distention, Peritoneal Signs Back: Present: Normal Inspection Extremities: Present: Normal Inspection. No: Cyanosis, Edema Neurological: Present: Patient is awake, alert, responds to verbal stimuli, answers questions appropriately, follows commands, and moves extremities past midline Skin: Present: Warm, Dry, Normal Color. No: Rashes Assessment and Plan: Diarrhea - imodium given x 1- symptoms are improving - C. Diff assay ordered and will follow Leukocytosis - downtrending - no fevers, no chills - blood cultures and urine culture ordered - no antibiotics at this time Elevated Hgb - produce buyer consulted- recommendations appreciated- MIGUEL 2 mutation BCR ABL1 - will monitor closely via CBC History of Diabetes - blood glucose is trended, reviewed, and appreciated - continue with humalog, levemir - c/w metformin and glimperide - accuchecks ACHS - ISS - carb consistent diet - attending spoke with PMD- patient may not be compliant with home medications, public health educator consulted Hx of Hypertension - BPs trended, reviewed, and appreciated - continue coreg Hx of Hyperlipidemia - continue with home statin Shizoaffective Disorder - as per psych Prophylaxis - pantoprazole - patient is ambulating without any overt difficulty Will continue to follow patient. Patient seen, case discussed with, and plan approved by attending physician, Dr. Arana. Objective - Vital Signs/Intake and Output Vital Signs (last 24 hours): Temp Pulse Resp BP Pulse Ox 97.7 F 100 H 20 130/84 08/09/17 06:41 08/09/17 09:26 08/09/17 06:41 08/09/17 09:26 - Medications Medications: Current Medications Acetaminophen (Tylenol 325mg Tab) 650 mg PO Q4H PRN PRN Reason: Pain, Mild (1-3) Aspirin (Ecotrin) 325 mg PO DAILY [facility] Last Admin: 08/09/17 10:11 Dose: 325 mg Atorvastatin Calcium (Lipitor) 20 mg PO DIN [facility] Last Admin: 08/08/17 17:18 Dose: 20 mg Carvedilol (Coreg) 3.125 mg PO BID [facility] Last Admin: 08/09/17 09:24 Dose: 3.125 mg Clozapine (Clozaril) 200 mg PO HS [facility] PRN Reason: Protocol Last Admin: 08/08/17 21:07 Dose: 200 mg Glimepiride (Amaryl) 4 mg PO 0800,1700 [facility] Last Admin: 08/09/17 09:26 Dose: 4 mg Insulin Detemir (Levemir) 20 unit SC HS [facility] Last Admin: 08/08/17 21:36 Dose: 20 unit Insulin Human Lispro (Humalog Med) 0 units SC [facility] PRN Reason: Protocol Last Admin: 08/09/17 07:30 Dose: Not Given Lisinopril (Zestril) 5 mg PO DAILY [facility] Last Admin: 08/09/17 09:26 Dose: 5 mg Magnesium Hydroxide (Milk Of Magnesia) 30 ml PO DAILY PRN PRN Reason: Constipation Metformin HCl (Glucophage) 850 mg PO BID [facility] Last Admin: 08/09/17 09:25 Dose: 850 mg Pantoprazole Sodium (Protonix Ec Tab) 20 mg PO 0600 [facility] Last Admin: 08/09/17 06:36 Dose: 20 mg Risperidone (Risperdal Tab) 2 mg PO 1000,1800 [facility] Last Admin: 08/09/17 09:26 Dose: 2 mg - Labs Labs: 08/09/17 07:20 08/09/17 07:20 <Jennifer Arana - Last Filed: 08/09/17 13:58> Objective - Vital Signs/Intake and Output Vital Signs (last 24 hours): Temp Pulse Resp BP Pulse Ox 97.7 F 100 H 20 130/84 08/09/17 06:41 08/09/17 09:26 08/09/17 06:41 08/09/17 09:26 - Medications Medications: Current Medications Acetaminophen (Tylenol 325mg Tab) 650 mg PO Q4H PRN PRN Reason: Pain, Mild (1-3) Aspirin (Ecotrin) 325 mg PO DAILY [facility] Last Admin: 08/09/17 10:11 Dose: 325 mg Atorvastatin Calcium (Lipitor) 20 mg PO DIN [facility] Last Admin: 08/08/17 17:18 Dose: 20 mg Carvedilol (Coreg) 3.125 mg PO BID [facility] Last Admin: 08/09/17 09:24 Dose: 3.125 mg Clozapine (Clozaril) 200 mg PO [facility] PRN Reason: Protocol Last Admin: 08/08/17 21:07 Dose: 200 mg Glimepiride (Amaryl) 4 mg PO 0800,1700 [facility] Last Admin: 08/09/17 09:26 Dose: 4 mg Insulin Detemir (Levemir) 20 unit SC [facility] Last Admin: 08/08/17 21:36 Dose: 20 unit Insulin Human Lispro (Humalog Med) 0 units SC [facility] PRN Reason: Protocol Last Admin: 08/09/17 12:06 Dose: 3 units Lisinopril (Zestril) 5 mg PO DAILY [facility] Last Admin: 08/09/17 09:26 Dose: 5 mg Magnesium Hydroxide (Milk Of Magnesia) 30 ml PO DAILY PRN PRN Reason: Constipation Metformin HCl (Glucophage) 850 mg PO BID [facility] Last Admin: 08/09/17 09:25 Dose: 850 mg Pantoprazole Sodium (Protonix Ec Tab) 20 mg PO 0600 [facility] Last Admin: 08/09/17 06:36 Dose: 20 mg Risperidone (Risperdal Tab) 2 mg PO 1000,1800 [facility] Last Admin: 08/09/17 09:26 Dose: 2 mg - Labs Labs: 08/09/17 07:20 08/09/17 07:20 Attending/Attestation - Attestation I have personally seen and examined this patient.: Yes I have fully participated in the care of the patient.: Yes I have reviewed all pertinent clinical information, including history, physical exam and plan: Yes Notes (Text): attending note; Patient seen and examined with the resident in Psych floor. Patient is a 62 year old male with past medical history of HTN, dyslipidemia, IDDM, psychosis, cigar use, marijuana use, CHF due to systolic dysfunction (EF~ 45-50%) who was transferred to psych floor for depression. hypertension; continue Coreg and lisinopril. follow-up with cardiology Dr. gardner as outpatient. DM; continue metformin, Amaryl and insulin. patient is noncompliance with taking insulin at home. Hemoglobin A1c is 11.1. Polycythemia; hematology evaluation with Dr. Ely requested. delisional disorder;Continue clozapine and risperidone. diarrhea; C. difficile ordered. Follow up results. Continue to monitor closely. case discussed with PMD in detail. Medical noncompliance secondary to psychiatric disorder. cement storage worker evaluation appreciated. Upon discharge the patient will follow-up with PMD .
--- NOTE | 2017-08-09 17:58 | CON ---
DATE: 08/09/2017 REASON FOR CONSULTATION: Leukocytosis as well as erythrocytosis. HISTORY OF PRESENT ILLNESS: The patient is a 62-year-old male with multiple medical problems including hypertension, hyperlipidemia, renal insufficiency, psychosis, marijuana and cocaine abuse, who was admitted to the hospital from inpatient Psych floor for evaluation of chest pain. He is noted to have an elevated white count as well as a hemoglobin and hematocrit that is elevated. He has undergone prior workup in the past for cardiac reasons, but no prior hematological workup has been done. He denies any headaches, any prior history of clots. There is no erythromelalgia. No other complaints. PAST MEDICAL HISTORY: Hypertension, hyperlipidemia, diabetes, schizoaffective disorder, renal insufficiency, and psychosis. PAST SURGICAL HISTORY: Positive for right inguinal hernia repair, appendectomy, and vasectomy. ALLERGIES: TO PENICILLIN. FAMILY HISTORY: Cardiac disease. SOCIAL HISTORY: Positive for alcohol abuse, former tobacco abuse, quit 30 years ago, former cocaine use, synthetic marijuana user. REVIEW OF SYSTEMS: As per the HPI. PHYSICAL EXAMINATION: GENERAL: The patient is an elderly, pleasant male in no acute distress. VITAL SIGNS: Reveal a temperature of 97.7, pulse of 100, respiratory rate of 20 and a blood pressure of 130/84. HEENT: Head: Normocephalic and atraumatic. Eyes: Pupils equal, round and reactive to light and accommodation. Extraocular muscles are intact. There is no pallor. No icterus is noted. NECK: Supple with no adenopathy. No JVD. No thyromegaly. LUNGS: Clear to auscultation bilaterally with no rales or rhonchi. CARDIOVASCULAR: S1 and S2 are heard. ABDOMEN: Positive bowel sounds, soft, nontender, nondistended. No organomegaly is palpated. EXTREMITIES: There is no edema, clubbing, or cyanosis. LABORATORY DATA: Reveal a white count of 11.1, hemoglobin of 17.4, hematocrit of 48.7, and a platelet count of 174. Chemistries are within normal limits except for a mildly elevated BUN and creatinine of 21 and 1.1. Otherwise, all electrolytes are within normal limits. ASSESSMENT AND PLAN: Elderly male with leukocytosis as well as erythrocytosis, must rule out polycythemia vera, JAK2 mutation will be sen also. We will check able to rule out any underlying chronic myelogenous leukemia. Myeloproliferative disorder is of concern in this patient. Await final testing prior to starting any medications or phlebotomy. Most likely though he will need therapeutic phlebotomies. I will discuss with the patient. Thank you for the consult. We will follow. Joann Ely MD
[2017-08-09] MEDS: Insulin Detemir 100 units/ml Vial (Levemir) SC SCH (22:36)
[2017-08-10] MEDS: Pantoprazole 20 mg EC Tab PO SCH (06:38)
[2017-08-10 06:40] LABS: BASO # 0.02 K/mm3 (0.0-2.0); BASO % 0.2 % (0.0-3.0); EOS # 0.5 (0.0-0.7); EOS % 4.8 % (1.5-5.0); GRAN # 5.36 (1.4-6.5); GRAN % 55.9 % (50.0-68.0); HEMATOCRIT 46.7 % (42.0-52.0); LYMPH # 2.7 (1.2-3.4); LYMPH % 28.1 % (22.0-35.0); MEAN CELL VOLUME 82.8 fl (80.0-105.0); MEAN CORPUSCULAR HEMOGLOBIN 28.9 pg (25.0-35.0); MEAN CORPUSCULAR HGB CONC 34.9 g/dl (31.0-37.0); MEAN PLATELET VOLUME 10.9 fl (7.0-11.0); MONO # 1.1 (0.1-0.6); RED CELL DISTRIBUTION WIDTH 12.6 % (11.5-14.5); WHITE BLOOD COUNT 9.6 10^3/ul (4.5-11.0)
[2017-08-10 06:52] LABS: ALB/GLOB RATIO 1.5 (1.1-1.8); ALKALINE PHOSPHATASE 62 U/L (38-126); ALT/SGPT 46 U/L (7-56); AST/SGOT 23 U/L (17-59); BILIRUBIN,TOTAL 0.7 mg/dL (0.2-1.3); BLOOD UREA NITROGEN 23 mg/dL (7-21); CALCIUM 8.8 mg/dL (8.4-10.5); CARBON DIOXIDE 24 mmol/L (21-33); CHLORIDE 107 mmol/L (98-107); GFR AFRICAN-AMERICAN > 60; GLUCOSE,RANDOM 94 mg/dL (70-110); POTASSIUM 3.9 mmol/L (3.6-5.0); SODIUM 143 mmol/L (132-148); TOTAL PROTEIN 6.3 g/dL (5.8-8.3)
--- NOTE | 2017-08-10 08:41 | PCM.PYCHPN ---
Psychiatric Progress Note - Psychiatric Progress Note Patient seen today, length of contact: 25 min Patient Chief Complaint: "it is taking a really long time for me to grow up" Problems Identified/Issues Discussed: I reviewed assessment and recent notes. Patient is known to me from prior admissions. He was interviewed at beside. He appears unkempt and a little restless but generally in control. He is superficially cooperative with questioning and his thought process remains tangential and scattered. Focus is poor. Patient denies depression or suicidal thoughts. He is oddly related, tells me he is concerned that "it is taking a really long time for me to grow up ". He remains paranoid and doesn't appear to be responding to internal stimuli. Patient denies side effects, new pain or discomfort. Didn't sleep well last night. Staff notes indicate that he has been labile, paranoid and anxious. He remains delusional. There were no behavioral issues overnight. Diagnostic Results: Schizoaffective disorder, bipolar type,severe. Paranoid delusions Medication Change: No Medical Record Reviewed: Yes Mental Status Examination - Cognitive Function Orientation: Person, Place, Situation, Time Memory: Intact Attention: Poor Concentration: Poor Association: Loose Fund of Knowledge: WNL - Mood Mood: Anxious - Speech Speech: Loud - Formal Thought Process Formal Thought Process: Hallucinations (denies today), Delusions, Paranoia, Loosening of associations, Flight of ideas, Circumstantial (Staest sees colors chanhing on river and ceiling) - Suicidal Ideation Suicidal Ideation: No - Homicidal Ideation Homicidal Ideation: No Goal/Treatment Plan - Goal/Treatment Plan Need for Continued Stay: Remain at risks for inpatient hospitalization, Discharge may exacerbated symptoms Progress Toward Problem(s) and Goals/Treatment Plan: * c/w current tx and plan * Vitals reviewed and noted below: Selected Entries 08/09/17 08/09/17 08/09/17 06:41 09:24 09:26 Temperature 97.7 F Pulse Rate 100 H 100 H 100 H Respiratory 20 Rate Blood Pressure 130/84 130/84 130/84 08/09/17 08/09/17 16:01 18:15 Temperature Pulse Rate 98 H 98 H Respiratory Rate Blood Pressure 130/72 130/72 * New weekend labs noted below: Laboratory Results - last 24 hr 08/09/17 08/09/17 08/09/17 11:02 16:11 21:33 WBC RBC Hgb Hct MCV MCH MCHC RDW Plt Count MPV Gran % Lymph % (Auto) [place] % (Auto) Eos % (Auto) Baso % (Auto) Gran # Lymph # [place] # Eos # Baso # Sodium Potassium Chloride Carbon Dioxide Anion Gap BUN Creatinine Est GFR ( Amer) Est GFR (Non-Af Amer) POC Glucose (mg/dL) 237 H 230 H 189 H Random Glucose Calcium Total Bilirubin AST ALT Alkaline Phosphatase Total Protein Albumin Globulin Albumin/Globulin Ratio 08/10/17 08/10/17 08/10/17 01:11 06:00 06:00 WBC 9.6 RBC 5.64 Hgb 16.3 Hct 46.7 MCV 82.8 MCH 28.9 MCHC 34.9 RDW 12.6 Plt Count 182 MPV 10.9 Gran % 55.9 Lymph % (Auto) 28.1 [place] % (Auto) 11.0 H Eos % (Auto) 4.8 Baso % (Auto) 0.2 Gran # 5.36 Lymph # 2.7 [place] # 1.1 H Eos # 0.5 Baso # 0.02 Sodium 143 Potassium 3.9 Chloride 107 Carbon Dioxide 24 Anion Gap 16 BUN 23 H Creatinine 1.0 Est GFR ( Amer) > 60 Est GFR (Non-Af Amer) > 60 POC Glucose (mg/dL) 202 H Random Glucose 94 Calcium 8.8 Total Bilirubin 0.7 AST 23 ALT 46 Alkaline Phosphatase 62 Total Protein 6.3 Albumin 3.8 Globulin 2.6 Albumin/Globulin Ratio 1.5 08/10/17 08:13 WBC RBC Hgb Hct MCV MCH MCHC RDW Plt Count MPV Gran % Lymph % (Auto) [place] % (Auto) Eos % (Auto) Baso % (Auto) Gran # Lymph # [place] # Eos # Baso # Sodium Potassium Chloride Carbon Dioxide Anion Gap BUN Creatinine Est GFR ( Amer) Est GFR (Non-Af Amer) POC Glucose (mg/dL) 86 Random Glucose Calcium Total Bilirubin AST ALT Alkaline Phosphatase Total Protein Albumin Globulin Albumin/Globulin Ratio Estimated Date of D/C: 08/14/17
[2017-08-10] MEDS: Aspirin 325 mg EC Tablets PO SCH (09:08)
[2017-08-10] MEDS: Insulin Lispro (humaLOG) MEDIUM Coverage SC SCH ×4 (09:09→23:30)
[2017-08-10] MEDS: Insulin Detemir 100 units/ml Vial (Levemir) SC SCH (22:00)
[2017-08-11] MEDS: Insulin Lispro (humaLOG) MEDIUM Coverage SC SCH ×4 (08:42→22:05)
[2017-08-11] MEDS: Aspirin 325 mg EC Tablets PO SCH (08:42)
[2017-08-11] MEDS: Pantoprazole 20 mg EC Tab PO SCH (08:42)
--- NOTE | 2017-08-11 09:11 | PCM.PYCHPN ---
Psychiatric Progress Note - Psychiatric Progress Note Patient seen today, length of contact: 25 min Patient Chief Complaint: "it is taking a really long time for me to grow up" Problems Identified/Issues Discussed: I reviewed recent notes and met with patient at beside. He continues to appears unkempt and restless but generally in control. He is superficially cooperative with questioning and his thought process remains tangential and scattered. Focus is poor. He is oddly related and remains paranoid. States "never trust your family when it comes to money". Patient continues to deny depression or suicidal thoughts. Patient denies side effects, new pain or discomfort. Reports sleeping well last night. Staff notes indicate that he has been labile, paranoid and anxious. He remains delusional and has not been able to attend groups. There were no major behavioral issues over the weekend. Diagnostic Results: Schizoaffective disorder, bipolar type,severe. Paranoid delusions Medication Change: No Medical Record Reviewed: Yes Mental Status Examination - Cognitive Function Orientation: Person, Place, Situation, Time Memory: Intact Attention: Poor Concentration: Poor Association: Loose Fund of Knowledge: WNL - Mood Mood: Anxious - Speech Speech: Loud - Formal Thought Process Formal Thought Process: Hallucinations (denies today), Delusions, Paranoia, Loosening of associations, Flight of ideas, Circumstantial (Staest sees colors chanhing on river and ceiling) - Suicidal Ideation Suicidal Ideation: No - Homicidal Ideation Homicidal Ideation: No Goal/Treatment Plan - Goal/Treatment Plan Need for Continued Stay: Remain at risks for inpatient hospitalization, Discharge may exacerbated symptoms Progress Toward Problem(s) and Goals/Treatment Plan: * c/w current tx and plan * Vitals reviewed and noted below: Selected Entries 08/10/17 08/10/17 08/10/17 07:00 09:06 09:07 Temperature 97.6 F Pulse Rate 89 89 89 Respiratory 20 Rate Blood Pressure 131/88 131/88 131/88 08/10/17 08/10/17 15:37 16:24 Temperature Pulse Rate 106 H 106 H Respiratory Rate Blood Pressure 125/80 125/80 * New weekend labs noted below: Laboratory Results - last 24 hr 08/09/17 08/09/17 08/09/17 11:02 16:11 21:33 WBC RBC Hgb Hct MCV MCH MCHC RDW Plt Count MPV Gran % Lymph % (Auto) [place] % (Auto) Eos % (Auto) Baso % (Auto) Gran # Lymph # [place] # Eos # Baso # Sodium Potassium Chloride Carbon Dioxide Anion Gap BUN Creatinine Est GFR ( Amer) Est GFR (Non-Af Amer) POC Glucose (mg/dL) 237 H 230 H 189 H Random Glucose Calcium Total Bilirubin AST ALT Alkaline Phosphatase Total Protein Albumin Globulin Albumin/Globulin Ratio 08/10/17 08/10/17 08/10/17 01:11 06:00 06:00 WBC 9.6 RBC 5.64 Hgb 16.3 Hct 46.7 MCV 82.8 MCH 28.9 MCHC 34.9 RDW 12.6 Plt Count 182 MPV 10.9 Gran % 55.9 Lymph % (Auto) 28.1 [place] % (Auto) 11.0 H Eos % (Auto) 4.8 Baso % (Auto) 0.2 Gran # 5.36 Lymph # 2.7 [place] # 1.1 H Eos # 0.5 Baso # 0.02 Sodium 143 Potassium 3.9 Chloride 107 Carbon Dioxide 24 Anion Gap 16 BUN 23 H Creatinine 1.0 Est GFR ( Amer) > 60 Est GFR (Non-Af Amer) > 60 POC Glucose (mg/dL) 202 H Random Glucose 94 Calcium 8.8 Total Bilirubin 0.7 AST 23 ALT 46 Alkaline Phosphatase 62 Total Protein 6.3 Albumin 3.8 Globulin 2.6 Albumin/Globulin Ratio 1.5 08/10/17 08:13 WBC RBC Hgb Hct MCV MCH MCHC RDW Plt Count MPV Gran % Lymph % (Auto) [place] % (Auto) Eos % (Auto) Baso % (Auto) Gran # Lymph # [place] # Eos # Baso # Sodium Potassium Chloride Carbon Dioxide Anion Gap BUN Creatinine Est GFR ( Amer) Est GFR (Non-Af Amer) POC Glucose (mg/dL) 86 Random Glucose Calcium Total Bilirubin AST ALT Alkaline Phosphatase Total Protein Albumin Globulin Albumin/Globulin Ratio Estimated Date of D/C: 08/14/17
[2017-08-11 09:44] VITALS: O2SAT 96
--- NOTE | 2017-08-11 09:59 | CP.PCM.PN ---
<Romy Byrne - Last Filed: 08/11/17 10:07> Subjective - Date & Time of Evaluation Date of Evaluation: 08/11/17 Time of Evaluation: 09:57 - Subjective Subjective: Hospitalist Service Progress Note: Patient seen and examined a bedside. Per nursing no acute events overnight. Patient is resting comfortably and without complaints at this time. Denies headaches, dizziness, cp, palpitations, sob, abdominal pain, urinary symptoms. Diarrhea has resolved. Objective - Vital Signs/Intake and Output Vital Signs (last 24 hours): Temp Pulse Resp BP Pulse Ox 97.6 F 89 18 129/90 96 08/10/17 07:00 08/11/17 08:41 08/11/17 07:00 08/11/17 08:41 08/11/17 07:00 - Medications Medications: Current Medications Acetaminophen (Tylenol 325mg Tab) 650 mg PO Q4H PRN PRN Reason: Pain, Mild (1-3) Aspirin (Ecotrin) 325 mg PO DAILY [facility] Last Admin: 08/11/17 08:42 Dose: 325 mg Atorvastatin Calcium (Lipitor) 20 mg PO DIN [facility] Last Admin: 08/10/17 16:24 Dose: 20 mg Carvedilol (Coreg) 3.125 mg PO BID [facility] Last Admin: 08/11/17 08:41 Dose: 3.125 mg Clozapine (Clozaril) 200 mg PO [facility] PRN Reason: Protocol Last Admin: 08/10/17 21:18 Dose: 200 mg Glimepiride (Amaryl) 4 mg PO 0800,1700 [facility] Last Admin: 08/11/17 08:41 Dose: 4 mg Insulin Detemir (Levemir) 20 unit SC HS [facility] Last Admin: 08/10/17 22:00 Dose: 20 unit Insulin Human Lispro (Humalog Med) 0 units SC [facility] PRN Reason: Protocol Last Admin: 08/11/17 08:42 Dose: Not Given Lisinopril (Zestril) 5 mg PO DAILY [facility] Last Admin: 08/11/17 08:40 Dose: 5 mg Magnesium Hydroxide (Milk Of Magnesia) 30 ml PO DAILY PRN PRN Reason: Constipation Metformin HCl (Glucophage) 850 mg PO BID [facility] Last Admin: 08/11/17 08:42 Dose: 850 mg Pantoprazole Sodium (Protonix Ec Tab) 20 mg PO 0600 [facility] Last Admin: 08/11/17 08:42 Dose: 20 mg Risperidone (Risperdal Tab) 3 mg PO 1000,1600 [facility] Last Admin: 08/10/17 18:12 Dose: 3 mg - Labs Labs: 08/10/17 06:00 08/10/17 06:00 - Constitutional Appears: Non-toxic, No Acute Distress - Head Exam Head Exam: ATRAUMATIC, NORMAL INSPECTION - Eye Exam Eye Exam: EOMI, Normal appearance - ENT Exam ENT Exam: Mucous Membranes Moist - Neck Exam Neck Exam: Full ROM - Respiratory Exam Respiratory Exam: Clear to Ausculation Bilateral, NORMAL BREATHING PATTERN. absent: Rales, Rhonchi, Wheezes - Cardiovascular Exam Cardiovascular Exam: REGULAR RHYTHM, +S1, +S2 - GI/Abdominal Exam GI & Abdominal Exam: Soft, Normal Bowel Sounds. absent: Guarding, Rigid, Tenderness - Extremities Exam Extremities Exam: Normal Inspection - Back Exam Back Exam: NORMAL INSPECTION - Neurological Exam Neurological Exam: Alert, Awake, Oriented x3 - Psychiatric Exam Psychiatric exam: Normal Affect, Normal Mood - Skin Skin Exam: Dry, Normal Color, Warm Assessment and Plan - Assessment and Plan (Free Text) Assessment: Patient is a 62 year old male with past medical history of HTN, dyslipidemia, IDDM, psychosis, cigar use, marijuana use, CHF due to systolic dysfunction (EF~ 45-50%) who was transferred to psych floor for depression. Plan: 1. Diarrhea (resolved) - C. Diff negative 2. Leukocytosis (resolved) - no fevers, no chills - blood cultures negative - no antibiotics at this time 3. Elevated Hgb - wire rope sling maker consulted- recommendations appreciated- MIGUEL 2 mutation BCR ABL1 - will monitor closely via CBC 4. History of Diabetes Type 2 (uncontrolled) - blood glucose is trended, reviewed, and appreciated - continue with humalog, levemir - c/w metformin and glimperide - Continue ISS, accuchecks ACHS - HgA1C 11.1 - carb consistent diet - patient is non-complaint with taking insulin at home 5. Hx of Hypertension - BPs trended, reviewed, and appreciated - continue coreg and lisinopril - F/U with Dr Zhou as outpatient 6. Hx of Hyperlipidemia - continue with home statin 7. Schizoaffective Disorder, Bipolar type; Paranoid Delusions - Continue clozapine and risperidone. - Management per psych team Prophylaxis - protonix - patient is ambulating without any overt difficulty Vitals and labs reviewed. Patient is stable from medical standpoint, will sign off at this time. Please reconsult if needed. Thank you. <Jennifer Arana - Last Filed: 08/11/17 12:20> Objective - Vital Signs/Intake and Output Vital Signs (last 24 hours): Temp Pulse Resp BP Pulse Ox 97.6 F 89 18 129/90 96 08/10/17 07:00 08/11/17 08:41 08/11/17 07:00 08/11/17 08:41 08/11/17 07:00 - Medications Medications: Current Medications Acetaminophen (Tylenol 325mg Tab) 650 mg PO Q4H PRN PRN Reason: Pain, Mild (1-3) Aspirin (Ecotrin) 325 mg PO DAILY [facility] Last Admin: 08/11/17 08:42 Dose: 325 mg Atorvastatin Calcium (Lipitor) 20 mg PO DIN [facility] Last Admin: 08/10/17 16:24 Dose: 20 mg Carvedilol (Coreg) 3.125 mg PO BID [facility] Last Admin: 08/11/17 08:41 Dose: 3.125 mg Clozapine (Clozaril) 200 mg PO [facility] PRN Reason: Protocol Last Admin: 08/10/17 21:18 Dose: 200 mg Glimepiride (Amaryl) 4 mg PO 0800,1700 [facility] Last Admin: 08/11/17 08:41 Dose: 4 mg Insulin Detemir (Levemir) 20 unit SC [facility] Last Admin: 08/10/17 22:00 Dose: 20 unit Insulin Human Lispro (Humalog Med) 0 units SC [facility] PRN Reason: Protocol Last Admin: 08/11/17 08:42 Dose: Not Given Lisinopril (Zestril) 5 mg PO DAILY [facility] Last Admin: 08/11/17 08:40 Dose: 5 mg Magnesium Hydroxide (Milk Of Magnesia) 30 ml PO DAILY PRN PRN Reason: Constipation Metformin HCl (Glucophage) 850 mg PO BID [facility] Last Admin: 08/11/17 08:42 Dose: 850 mg Pantoprazole Sodium (Protonix Ec Tab) 20 mg PO 0600 [facility] Last Admin: 08/11/17 08:42 Dose: 20 mg Risperidone (Risperdal Tab) 3 mg PO 1000,1600 [facility] Last Admin: 08/10/17 18:12 Dose: 3 mg - Labs Labs: 08/10/17 06:00 08/10/17 06:00 Attending/Attestation - Attestation I have personally seen and examined this patient.: Yes I have fully participated in the care of the patient.: Yes I have reviewed all pertinent clinical information, including history, physical exam and plan: Yes Notes (Text): 08/11/17 12:15 attending note; Patient seen and examined with the resident in Psych floor. Patient is a 62 year old male with past medical history of HTN, dyslipidemia, IDDM, psychosis, marijuana use who was transferred to psych floor for depression. hypertension; continue Coreg and lisinopril. follow-up with cardiology Dr. zhou as outpatient. DM; continue metformin, Amaryl and insulin. patient is noncompliance with taking insulin at home. Hemoglobin A1c is 11.1. date sugar is better controlled. Needs diabetic education/dietitian education before discharge. Polycythemia; hematology evaluation with Dr. Ely appreciated. follow-up MIGUEL 2 mutation , bcr/abl results. delisional disorder;Continue clozapine and risperidone. diarrhea; C. difficile is negative. Currently no diarrhea. Patient is tolerating diet. Medical noncompliance secondary to psychiatric disorder. renal social worker evaluation appreciated. Upon discharge the patient will follow-up with PMD .
[2017-08-11] MEDS: Insulin Detemir 100 units/ml Vial (Levemir) SC SCH (22:18)
[2017-08-12] MEDS: Pantoprazole 20 mg EC Tab PO SCH (06:33)
[2017-08-12] MEDS: Insulin Lispro (humaLOG) MEDIUM Coverage SC SCH ×4 (08:17→21:55)
[2017-08-12] MEDS: Aspirin 325 mg EC Tablets PO SCH (08:33)
--- NOTE | 2017-08-12 09:04 | PN ---
DATE: 08/09/2017 SUBJECTIVE: The patient is a 62-year-old male currently being treated in a psychiatric unit due to severe paranoia, thought disorder and mood swings. Today, I spoke at length with patient and then spoke at length with the patient and his brother, who is on the telephone. Patient's thinking and judgement has been quite impaired. It has been brought to our attention that his pension and his social security disability has not been getting into his account for the past three months. It is possible that his identity has been stolen. He has no money and his checking account is overdrawn and all his credit cards and his personal automobile and registration was given away to a person who is using drugs. Patient is very paranoid, believing his brother is out to kill him and to cause him harm, break into his house. There is no basis of fact for that. Patient has been refusing to sign a power of trade mark attorney for his brother should he need it due to mental impairment, due to the patient's severe paranoia. Patient is oriented x3. He has vague visual hallucinations. He is quite isolated and withdrawn and is totally out of touch with reality. CURRENT MEDICATIONS: Include Risperdal 2 mg b.i.d., clozapine 200 mg at bedtime, Amaryl 4 mg b.i.d., Coreg 3.125 mg b.i.d., Ecotrin 325 mg daily, Glucophage 350 mg b.i.d., Levemir 20 units subcutaneous at bedtime, Lipitor 20 mg daily, Protonix 20 mg daily. CURRENT LABORATORY DATA: His metabolic profile is essentially normal except for BUN of 25 and a random glucose of 131. His random glucose later today was 230. Patient's CBC; his white count 11,100. Rest of the profile was normal. PHYSICAL EXAMINATION: Patient's vital signs, blood pressure 130/72, pulse 98, respirations 20 per minute and afebrile. IMPRESSION: Patient has schizoaffective disorder severe acute bipolar type. He also has severe paranoia, insulin-dependent diabetes mellitus, hyperlipidemia, and history of hypertension. PLAN: We will increase Risperdal 3 mg b.i.d. starting tomorrow and continue clozapine 200 mg at bedtime. Continue closely monitoring mental status. As soon as patient's mental status is stabilized, he will need to go to social security and get in touch with his pension judiciary and the police department to report possible stealing of identity. Simone Salter MD
[2017-08-12 13:20] LABS: BCR-ABL PRIOR RESULT NOT GIVEN; BCR-ABL SOURCE BLOOD; P190 BCR-ABL1 NOT DETECTED; P210 BCR-ABL1 NOT DETECTED
--- NOTE | 2017-08-12 17:35 | PN ---
DATE: SUBJECTIVE: The patient is 62-year-old male currently being treated on the Psychiatric Unit for severe paranoia, delusional thinking and mood swings. The patient also has thought disorder with thought blocking and racing thoughts. Last night the patient slept poorly despite 200 mg of clozapine, discontinued Benadryl . He is slightly drowsy this morning. I spent approximately 30 minutes talking with patient and staff. I also spoke at length with the patient's brother with patient at my side. The patient's family agreed to give power of insole rasper to his brother as identity has been stolen after having given his car registration and other information to a notorious woman who is probably a drug abuser. CURRENT LABORATORY DATA: His most recent blood sugar is 213. CURRENT MEDICATIONS: Include Amaryl, clozapine 200 mg at bedtime, Humalog insulin before meals and at bedtime, Protonix. He is also receiving Amaryl 4mg twice a day, Zestril, Coreg b.i.d., Glucophage 850 twice a day, Lipitor daily, Levemir 20 units subcu at bedtime, Ecotrin and Risperdal 3 mg b.i.d. PHYSICAL EXAMINATION VITAL SIGNS: Blood pressure 135/85, pulse 80, respirations 20 per minute. PSYCHIATRIC: Mental status reveals that he is very suspicious, convinced his brother is trying to break into his house, steal his possessions and steal the house. He also has difficulty trusting others. The patient denies hallucinations, denies suicidal attempts. His judgement remains very poor. Recent memory generally intact. Patient is oriented x3. Agrees giving power of insole rasper documents to his brother despite severe paranoia. IMPRESSION: Schizoaffective disorder, severe bipolar type. The patient has severe paranoia, insulin-dependent diabetes mellitus, hyperlipidemia, and hypertension. PLAN: We will increase clozapine to 250 mg at bedtime. Continue Risperdal 3 mg b.i.d. Keep on close observation q. 15 minutes. Simone Salter MD [facility]
[2017-08-12] MEDS: Insulin Detemir 100 units/ml Vial (Levemir) SC SCH (21:54)
[2017-08-13] MEDS: Pantoprazole 20 mg EC Tab PO SCH (07:01)
[2017-08-13] MEDS: Insulin Lispro (humaLOG) MEDIUM Coverage SC SCH ×4 (08:33→21:43)
[2017-08-13] MEDS: Aspirin 325 mg EC Tablets PO SCH (08:34)
--- NOTE | 2017-08-13 15:24 | PN ---
DATE: SUBJECTIVE: Patient is a 62-year-old white male, currently being treated for an exacerbation of acute schizoaffective disorder. He is hardly paranoid. He is hardly delusional. Yesterday, while meeting with the social services aide, he lost his temper and threatened to kill her and stormed out of the room. I spoke at length with staff. I have also spoken at length with the patient's brother who is deeply concerned about the patient's problems. CURRENT MENTAL STATUS: He is awake, he is alert, his affect is flat. He is somewhat evasive. He has poor eye contact. He still feels that although his brother might not be against him now, he has in the past and has been involved in stealing from his house and manipulating him. There is no evidence of any of this. Patient is oriented x3. I have attempted to hold the child welfare caseworker to help the patient's son appeal POA for his father for which the patient agrees. Currently, patient slept better last night following an increase in clozapine to 250 mg. MEDICATIONS: His current other medicines include Amaryl 4 mg b.i.d., Coreg 3.125 mg b.i.d., aspirin at 325 mg daily, metformin 850 mg b.i.d., Levemir 20 mg subcu at bedtime, Protonix 20 mg q. a.m., and Zestril 5 mg daily. LABORATORY DATA: The new laboratory data in the past 24 hours has been a random glucose of 170. I reviewed nurse's notes. He was up most of the night.. PHYSICAL EXAMINATION VITAL SIGNS: His blood pressure is 114/78 standing and lying down; pulse is 104, standing is 108. IMPRESSION: Patient has schizoaffective disorder bipolar-type, severe with acute exacerbation. He has severe paranoid delusions. He has insulin-dependent diabetes mellitus, history of hypertension, hyperlipidemia. PLAN: We will continue increased doses of Risperdal 3 mg b.i.d., clozapine 250 mg at bedtime and keep under close observation. Patient also agrees to sign POA for giving his brother easier access to help him with his legal and financial affairs. Simone Salter MD
[2017-08-13] MEDS: Insulin Detemir 100 units/ml Vial (Levemir) SC SCH (21:43)
[2017-08-14] MEDS: Pantoprazole 20 mg EC Tab PO SCH (06:46)
[2017-08-14] MEDS: Aspirin 325 mg EC Tablets PO SCH (08:14)
[2017-08-14] MEDS: Insulin Lispro (humaLOG) MEDIUM Coverage SC SCH ×4 (09:15→21:26)
--- NOTE | 2017-08-14 16:00 | PN ---
DATE: SUBJECTIVE: The patient is a 62-year-old male currently being treated on the Psychiatric Unit for an exacerbation of schizoaffective disorder. He has persisting paranoia, guardedness, and thought disorder. Today, his mental status reveals he is awake, he is alert, he has somewhat impaired eye contact. At times, he gazes off into the distance. At times he has some slight thought blocking. He is guarded and evasive, still at times has fixation on this brother having been robbing his home and stealing his money in the past, but not currently. The patient states he is going give him power of securities attorney. The patient denies suicidal intent. The patient's claims he slept poorly last night, was up until 3 in the morning with difficulty falling back to sleep. PHYSICAL EXAMINATION: VITAL SIGNS: Blood pressure 122/80, pulse 112, he is afebrile, respirations 18 per minute. I spoke at length with the patient's brother with the patient present on the phone. I also spoke at length with social work nurse. The patient has to make changes to his bank account so that certain debits are not made, so he will have money to pay for his taxes, which would do home. LABORATORY DATA: Glucose is 196. CURRENT MEDICATIONS: Include Amaryl, clozapine 250 mg at bedtime, Coreg 3.125 mg b.i.d., Ecotrin 325 daily, metformin 850 mg b.i.d., Humalog protocol, Levemir 20 units subcu at bedtime, Lipitor, Protonix, and Risperdal 3 mg b.i.d. IMPRESSION: He has schizoaffective disorder, bipolar type acute. He also has paranoid delusions. The patient has history of insulin dependant diabetes mellitus, hypertension, and hyperlipidemia. PLAN: We will increase his clozapine to 300 mg p.o. at bedtime, continue Risperdal 3 mg b.i.d. and we will continue to closely monitor her mental status and keep on closer observation q.15 minutes. The patient is not able at this point to be relied on administer psychotropic medication at home. Simone Salter MD
[2017-08-14] MEDS: Insulin Detemir 100 units/ml Vial (Levemir) SC SCH (21:28)
[2017-08-15] MEDS: Pantoprazole 20 mg EC Tab PO SCH (05:55)
[2017-08-15] MEDS: Insulin Lispro (humaLOG) MEDIUM Coverage SC SCH ×4 (08:00→21:31)
[2017-08-15] MEDS: Aspirin 325 mg EC Tablets PO SCH (08:45)
[2017-08-15] MEDS ORDERED: INVEGA SUSTENNA 156 MG IM ONE ×2 (12:30→13:00)
--- NOTE | 2017-08-15 14:54 | PN ---
DATE: SUBJECTIVE: The patient is a 62-year-old male currently being treated on a psychiatric unit for exacerbation of schizoaffective disorder. He has had symptoms of thought disorder with thought block and tangentiality, he has also been very paranoid with delusional thinking that his brother has been breaking into his house and stealing his possessions, which is no truth. The patient also has had making very poor judgment giving away money or withdrawing, checking account, credit cards. The patient's current mental status today reveals that he is awake, alert, tolerate increase dose of clozapine at 400 mg at bedtime last night. The patient is thinking he is gradually improving at times; however, he is guarded and evasive. He has some degree of thought disorder, some thought blocking, staring off. The patient is oriented x3. Yesterday, I spoke at length with the patient's brother and also spoke with social services manager regarding the patient's thinking and other affairs. We will gave a power of bankruptcy attorney to his brother. CURRENT MEDICATIONS: Include Amaryl, clozapine 400 mg at bedtime, Coreg, Ecotrin, Glucophage, Humalog insulin, Levemir insulin, and risperidone 3 mg twice a day. LABORATORY DATA: Most recent blood sugar today was 84. PHYSICAL EXAMINATION: VITAL SIGNS: His blood pressure is 117/80, pulse 104, he is afebrile, and respirations 18 per minute. REVIEW OF SYSTEMS: Noncontributory, no physical complaints for 12-point review. IMPRESSION: The patient has acute exacerbation of severe schizoaffective disorder with paranoia; the patient has insulin-dependent diabetes mellitus, hypertension, and hyperlipidemia. PLAN: Today, I have ordered Invega Sustenna long acting injectable, we will low the dose of Risperdal to 2 mg b.i.d. Continue clozapine 400 mg at bedtime and we will closely monitor mental status and staff will observe him every 15 minutes. Simone Salter MD MTDD
[2017-08-15] MEDS: Insulin Detemir 100 units/ml Vial (Levemir) SC SCH (23:06)
[2017-08-16] MEDS: Pantoprazole 20 mg EC Tab PO SCH (06:13)
[2017-08-16 07:00] VITALS: RESP 20
[2017-08-16] MEDS: Insulin Lispro (humaLOG) MEDIUM Coverage SC SCH ×4 (07:30→22:42)
[2017-08-16] MEDS: Aspirin 325 mg EC Tablets PO SCH (09:25)
--- NOTE | 2017-08-16 20:21 | PN ---
DATE: SUBJECTIVE: The patient is a 62-year-old male, currently being treated in the psychiatric unit for thought disorder, paranoia, inner agitation. The patient's mental status is slowly improving. He still has some evidence of thought blocking and tangentiality and evasiveness. Today, I spoke with the patient and his brother who is on the telephone. The patient's brother has been judiciously trying to clarify and correct the patient's financial and legal problems. He has been given power of civil rights attorney by the patient. The patient also has numerous social problems for which his brother is willing to cooperate and help, but the patient has been very paranoid about his brother in the past, which is slowly resolving. CURRENT MEDICATIONS: Include Amaryl 4 mg b.i.d., clozapine 400 mg at bedtime, Coreg 3.125 mg b.i.d, metformin 850 mg b.i.d., Levemir 20 mg subcu at bedtime, Lipitor 20 mg daily, Protonix 20 mg daily. The patient is on Risperdal 2 mg b.i.d., Invega Sustenna 156 mg IM yesterday. He is on Zestril 5 mg daily. LABORATORY DATA: The only new laboratory data report is most recent blood sugar today was 65. PHYSICAL EXAMINATION: VITAL SIGNS: Blood pressure 129/84, pulse 98, respirations 20 per minute. IMPRESSION: The patient has slowly resolving acute exacerbation of schizoaffective disorder with severe paranoia. He has hyperlipidemia, hypertension. We will discharge as soon as thought disorder improves and paranoia diminishes and patient can care for himself and cooperate with his family. I also spoke with social services coordinator who is arranging for home visits. The patient although has been somewhat uncooperative for this in the past. Simone Salter MD MTDD
[2017-08-16] MEDS: Insulin Detemir 100 units/ml Vial (Levemir) SC SCH (22:47)
[2017-08-17] MEDS: Pantoprazole 20 mg EC Tab PO SCH (06:16)
--- NOTE | 2017-08-17 09:15 | PCM.PYCHPN ---
Psychiatric Progress Note - Psychiatric Progress Note Patient seen today, length of contact: 25 min Patient Chief Complaint: "broken heart" Problems Identified/Issues Discussed: I reviewed recent notes and met with patient at beside. He is familiar to me from prior interviews during this admission. He continues to appears unkempt and he is superficially cooperative with questioning. Oriented x3. Affect remains odd and thought process is tangential. Reports his mood as a "broken heart". Tells me that he has hallucinations of seeing the floor "slightly moving ". Patient continues to deny suicidal or homicidal thoughts. Appears less anxious and restless than prior interviews. Patient denies side effects, new pain or discomfort. Reports sleeping well last night. Staff notes indicate that patient has been cooperative, calmer and less anxious. He interacts with select patients. There were no major behavioral issues over the weekend. Diagnostic Results: Schizoaffective disorder, bipolar type,severe. Paranoid delusions Medication Change: No Medical Record Reviewed: Yes Mental Status Examination - Cognitive Function Orientation: Person, Place, Situation, Time Memory: Intact Attention: Poor Concentration: Poor Association: Loose Fund of Knowledge: WNL - Mood Mood: Anxious, Other ( "broken heart") - Speech Speech: Loud - Formal Thought Process Formal Thought Process: Hallucinations ("floors slightly moving"), Delusions ( paranoid), Paranoia, Loosening of associations, Flight of ideas, Circumstantial (Staest sees colors chanhing on river and ceiling) - Suicidal Ideation Suicidal Ideation: No - Homicidal Ideation Homicidal Ideation: No Goal/Treatment Plan - Goal/Treatment Plan Need for Continued Stay: Remain at risks for inpatient hospitalization, Discharge may exacerbated symptoms Progress Toward Problem(s) and Goals/Treatment Plan: * c/w current tx and plan * Vitals reviewed and noted below: Selected Entries 08/16/17 08/16/17 08/16/17 06:59 09:25 09:26 Temperature 97.6 F Pulse Rate 98 H 98 H 98 H Respiratory 20 Rate Blood Pressure 129/84 129/84 129/84 08/16/17 08/16/17 15:00 17:26 Temperature Pulse Rate 94 H 100 H Respiratory Rate Blood Pressure 122/69 133/94 H * Prior weekend labs noted below: Laboratory Results - last 24 hr 08/09/17 08/09/17 08/09/17 11:02 16:11 21:33 WBC RBC Hgb Hct MCV MCH MCHC RDW Plt Count MPV Gran % Lymph % (Auto) Harvey % (Auto) Eos % (Auto) Baso % (Auto) Gran # Lymph # Harvey # Eos # Baso # Sodium Potassium Chloride Carbon Dioxide Anion Gap BUN Creatinine Est GFR ( Amer) Est GFR (Non-Af Amer) POC Glucose (mg/dL) 237 H 230 H 189 H Random Glucose Calcium Total Bilirubin AST ALT Alkaline Phosphatase Total Protein Albumin Globulin Albumin/Globulin Ratio 08/10/17 08/10/17 08/10/17 01:11 06:00 06:00 WBC 9.6 RBC 5.64 Hgb 16.3 Hct 46.7 MCV 82.8 MCH 28.9 MCHC 34.9 RDW 12.6 Plt Count 182 MPV 10.9 Gran % 55.9 Lymph % (Auto) 28.1 Harvey % (Auto) 11.0 H Eos % (Auto) 4.8 Baso % (Auto) 0.2 Gran # 5.36 Lymph # 2.7 Harvey # 1.1 H Eos # 0.5 Baso # 0.02 Sodium 143 Potassium 3.9 Chloride 107 Carbon Dioxide 24 Anion Gap 16 BUN 23 H Creatinine 1.0 Est GFR ( Amer) > 60 Est GFR (Non-Af Amer) > 60 POC Glucose (mg/dL) 202 H Random Glucose 94 Calcium 8.8 Total Bilirubin 0.7 AST 23 ALT 46 Alkaline Phosphatase 62 Total Protein 6.3 Albumin 3.8 Globulin 2.6 Albumin/Globulin Ratio 1.5 08/10/17 08:13 WBC RBC Hgb Hct MCV MCH MCHC RDW Plt Count MPV Gran % Lymph % (Auto) Harvey % (Auto) Eos % (Auto) Baso % (Auto) Gran # Lymph # Harvey # Eos # Baso # Sodium Potassium Chloride Carbon Dioxide Anion Gap BUN Creatinine Est GFR ( Amer) Est GFR (Non-Af Amer) POC Glucose (mg/dL) 86 Random Glucose Calcium Total Bilirubin AST ALT Alkaline Phosphatase Total Protein Albumin Globulin Albumin/Globulin Ratio Estimated Date of D/C: 08/14/17
[2017-08-17] MEDS: Insulin Lispro (humaLOG) MEDIUM Coverage SC SCH ×4 (09:33→21:24)
[2017-08-17] MEDS: Aspirin 325 mg EC Tablets PO SCH (09:33)
[2017-08-17] MEDS: Insulin Detemir 100 units/ml Vial (Levemir) SC SCH (21:42)
[2017-08-18] MEDS: Pantoprazole 20 mg EC Tab PO SCH (06:21)
[2017-08-18] MEDS: Aspirin 325 mg EC Tablets PO SCH (08:56)
[2017-08-18] MEDS: Insulin Lispro (humaLOG) MEDIUM Coverage SC SCH ×4 (09:12→21:24)
--- NOTE | 2017-08-18 10:22 | PCM.PYCHPN ---
Psychiatric Progress Note - Psychiatric Progress Note Patient seen today, length of contact: 25 min Patient Chief Complaint: "much better but I am lonely, I never felt lonely before" Problems Identified/Issues Discussed: I reviewed recent notes and met with patient at beside.. He continues to appears unkempt and he is superficially cooperative with questioning. Oriented x3. Affect remains odd and thought process is tangential. Reports his mood as "much better but I am lonely, I never felt lonely before". He denies depression. Denies hallucinations today "they're all gone". Patient continues to deny suicidal or homicidal thoughts. Appears less anxious and restless than prior interviews. Patient denies side effects, new pain or discomfort. Reports sleeping well last night. Staff notes indicate that patient has been cooperative, calmer and less anxious. He interacts with select patients. Sometimes seen pacing the unit. There were no major behavioral issues over the weekend. Diagnostic Results: Schizoaffective disorder, bipolar type,severe. Paranoid delusions Medication Change: No Medical Record Reviewed: Yes Mental Status Examination - Cognitive Function Orientation: Person, Place, Situation, Time Memory: Intact Attention: Poor Concentration: Poor Association: Loose Fund of Knowledge: WNL - Mood Mood: Anxious, Other ("much better but I am lonely, I never felt lonely before") - Speech Speech: Loud - Formal Thought Process Formal Thought Process: Hallucinations ("floors slightly moving"~patient endorsed Saturday, denied Saturday), Delusions (paranoid), Paranoia, Loosening of associations, Flight of ideas, Circumstantial (Staest sees colors chanhing on river and ceiling) - Suicidal Ideation Suicidal Ideation: No - Homicidal Ideation Homicidal Ideation: No Goal/Treatment Plan - Goal/Treatment Plan Need for Continued Stay: Remain at risks for inpatient hospitalization, Discharge may exacerbated symptoms Progress Toward Problem(s) and Goals/Treatment Plan: * c/w current tx and plan * Vitals reviewed and noted below: Selected Entries 08/17/17 08/17/17 08/17/17 06:39 09:32 09:33 Temperature 98.6 F Pulse Rate 112 H 112 H 112 H Respiratory 20 Rate Blood Pressure 110/79 110/79 110/79 08/17/17 08/17/17 16:04 17:04 Temperature Pulse Rate 110 H 70 Respiratory Rate Blood Pressure 104/54 L 104/54 L * Prior weekend labs noted below: Laboratory Results - last 24 hr 08/09/17 08/09/17 08/09/17 11:02 16:11 21:33 WBC RBC Hgb Hct MCV MCH MCHC RDW Plt Count MPV Gran % Lymph % (Auto) [place] % (Auto) Eos % (Auto) Baso % (Auto) Gran # Lymph # [place] # Eos # Baso # Sodium Potassium Chloride Carbon Dioxide Anion Gap BUN Creatinine Est GFR ( Amer) Est GFR (Non-Af Amer) POC Glucose (mg/dL) 237 H 230 H 189 H Random Glucose Calcium Total Bilirubin AST ALT Alkaline Phosphatase Total Protein Albumin Globulin Albumin/Globulin Ratio 08/10/17 08/10/17 08/10/17 01:11 06:00 06:00 WBC 9.6 RBC 5.64 Hgb 16.3 Hct 46.7 MCV 82.8 MCH 28.9 MCHC 34.9 RDW 12.6 Plt Count 182 MPV 10.9 Gran % 55.9 Lymph % (Auto) 28.1 [place] % (Auto) 11.0 H Eos % (Auto) 4.8 Baso % (Auto) 0.2 Gran # 5.36 Lymph # 2.7 [place] # 1.1 H Eos # 0.5 Baso # 0.02 Sodium 143 Potassium 3.9 Chloride 107 Carbon Dioxide 24 Anion Gap 16 BUN 23 H Creatinine 1.0 Est GFR ( Amer) > 60 Est GFR (Non-Af Amer) > 60 POC Glucose (mg/dL) 202 H Random Glucose 94 Calcium 8.8 Total Bilirubin 0.7 AST 23 ALT 46 Alkaline Phosphatase 62 Total Protein 6.3 Albumin 3.8 Globulin 2.6 Albumin/Globulin Ratio 1.5 08/10/17 08:13 WBC RBC Hgb Hct MCV MCH MCHC RDW Plt Count MPV Gran % Lymph % (Auto) [place] % (Auto) Eos % (Auto) Baso % (Auto) Gran # Lymph # [place] # Eos # Baso # Sodium Potassium Chloride Carbon Dioxide Anion Gap BUN Creatinine Est GFR ( Amer) Est GFR (Non-Af Amer) POC Glucose (mg/dL) 86 Random Glucose Calcium Total Bilirubin AST ALT Alkaline Phosphatase Total Protein Albumin Globulin Albumin/Globulin Ratio Estimated Date of D/C: 08/14/17
[2017-08-18 17:57] VITALS: PULSE 97
[2017-08-18] MEDS: Insulin Detemir 100 units/ml Vial (Levemir) SC SCH (22:54)
[2017-08-19] MEDS: Pantoprazole 20 mg EC Tab PO SCH (06:42)
[2017-08-19 07:07] VITALS: BP 108/70; TEMP 98.1
[2017-08-19] MEDS: Insulin Lispro (humaLOG) MEDIUM Coverage SC SCH ×2 (09:41→12:37)
[2017-08-19] MEDS: Aspirin 325 mg EC Tablets PO SCH (09:43)
[2017-08-19] MEDS ORDERED: Insulin Lispro 1 UNITS/0.01 ML SC SCH (16:30)
--- NOTE | 2017-08-20 09:57 | DS ---
ADMITTING DIAGNOSIS: Depression. FINAL DIAGNOSES: 1. Schizoaffective disorder, bipolar type, severe, acute episode. 2. Severe paranoia. 3. Insulin-dependent diabetes mellitus. 4. The patient has hypertension. 5. The patient has hyperlipidemia. HISTORY OF PRESENT ILLNESS: The patient is a 62-year-old male brought to the emergency room due to severe paranoia, disorganized thinking, hallucinations and agitation, and inability to care for himself. PAST MEDICAL HISTORY: As above. PERSONAL HISTORY: Lives alone. Has a brother. Parents are . Never . Been on social security disability for many years due to psychiatric problems. PHYSICAL EXAMINATION: VITAL SIGNS: He is currently discharged. Blood pressure is 108/70, pulse is 97, afebrile, and respirations 20 per minute. GENERAL: He is slightly disheveled, but coherent now, white male. He is oriented x3. His affect is flat. He denies currently any paranoid delusions at this time. His thinking is more rational except for some chronic times while talking. HOSPITAL COURSE: He was put under close observation q.15 minutes, treated with pharmaco and milieu therapy, engaged in recreational therapeutic activities, seen in consultation by an Hazardous Waste Material Technician. The patient was treated with multiple psychotropic medicines. I spoke with staff multiple occasions and I also spoke at multiple occasions at length with patient's brother, who is concerned about his future and his care. LABORATORY DATA: The patient had routine laboratory data; initially his white count was 12,700, most recently 9600, hemoglobin of 16.3, and platelet count 182,000. His metabolic profiles, most recent random glucose is 68 and 721 this morning. The patient gradually, his mental status improved to a point where he is no longer delusional, he is willing to cooperate with his brother. He is willing to use better judgement and begin organizing his life specifically his financial life better and making proper decisions. He agrees to come and see me in my office within one week for outpatient psychiatric care. He will see someone from [facility] who will visit his house to make sure the patient is complying with treatment. The patient had 156 mg IM of Sustenna Invega, which he will get every four weeks. The patient's other discharge medicines for schizoaffective disorder; other medications include Ecotrin 325 mg daily, metformin 850 mg for diabetes, Humulin lispro 5 to 10 units before meals, he is on Levemir 20 units subcu at bedtime, Lipitor 20 mg daily for hyperlipidemia, Levemir is for diabetes, Protonix 20 mg q.a.m. for acid reflux, he is also receiving Risperdal 2 mg b.i.d., he is also receiving clozapine 400 mg p.o. at bedtime. He has been getting his white counts monitored and CBC monitored every four weeks. The patient instructed not to use any alcohol or abusive drugs. Return to emergency room or call me if he is having any changes in his mental status. His prognosis is somewhat guarded. He is also instructed to followup with his Hazardous Waste Material Technician to follow his other underlying medical problems. Simone Salter MD
== END 2017-08-19 16:15 | disposition home or self-care (01) | DRG 885 ==
LOC: PSYC 19:50
PROVIDERS: ADMIT Psychiatry & Neurology Psychiatry; ATTEND Psychiatry & Neurology Psychiatry
DX: F25.0 Schizoaffective disorder, bipolar type (principal); I11.0 Hypertensive heart disease with heart failure; I50.22 Chronic systolic (congestive) heart failure; D75.1 Secondary polycythemia; I08.1 Rheumatic disorders of both mitral and tricuspid valves; E11.9 Type 2 diabetes mellitus without complications; F22 Delusional disorders; E78.5 Hyperlipidemia, unspecified; D72.829 Elevated white blood cell count, unspecified; F14.10 Cocaine abuse, uncomplicated; N28.9 Disorder of kidney and ureter, unspecified; Z65.3 Problems related to other legal circumstances; Z79.4 Long term (current) use of insulin; Z81.8 Family history of other mental and behavioral disorders; Z87.891 Personal history of nicotine dependence; Z90.49 Acquired absence of other specified parts of digestive tract; Z91.19 Patient's noncompliance with other medical treatment and regimen; F12.10 Cannabis abuse, uncomplicated; Z88.0 Allergy status to penicillin; I45.10 Unspecified right bundle-branch block; Z87.892 Personal history of anaphylaxis; F41.9 Anxiety disorder, unspecified; R19.7 Diarrhea, unspecified